=== PATIENT | male | born 1950 | race Caucasian/White ===

== ENCOUNTER 2020-02-22 09:32 | Outpatient (REF) | payer MEDICARE, SELFPAY ==
--- NOTE | 2020-02-22 09:46 | XR_ITS ---
EXAMINATION: XR LEFT HIP WITH AP PELVIS CLINICAL INFORMATION: Left hip/pelvic pain. COMPARISON: None. TECHNIQUE: AP and frog-leg lateral views of the left hip and an AP view of the pelvis. FINDINGS: There is mild nonuniform joint space narrowing at the left hip. Small marginal osteophytic present at the acetabulum and femoral head/neck. No fracture or malalignment. Bone mineralization appears normal. Pubic symphysis is unremarkable. Soft tissues are normal in appearance. 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 No acute osseous abnormalities.
== END 2020-02-22 09:33 | disposition home or self-care (01) ==
LOC: HO.XRAY 09:32
PROVIDERS: PCP Internal Medicine; Visit Provider Chiropractor
DX: M25.552 Pain in left hip (principal); M25.562 Pain in left knee
CPT/HCPCS: 73502

== ENCOUNTER 2020-03-04 08:15 | Outpatient (REF) | payer MEDICARE, SELFPAY ==
[2020-03-04 11:37] LABS: Cholesterol 154 mg/dL; HDL Cholesterol 53 mg/dL; LDL Cholesterol Calculated 30 mg/dl; Triglycerides 358 mg/dL
== END 2020-03-04 08:16 | disposition home or self-care (01) ==
LOC: HO.HMGCLDS 08:15
PROVIDERS: PCP Internal Medicine; Visit Provider Internal Medicine
DX: E78.5 Hyperlipidemia, unspecified (principal)
CPT/HCPCS: 80061

== ENCOUNTER 2020-03-25 11:11 | Outpatient (REF) | payer MEDICARE, SELFPAY ==
--- NOTE | 2020-03-25 11:19 | XR_ITS ---
EXAMINATION: XR LUMBOSACRAL SPINE CLINICAL INFORMATION: Pain COMPARISON: None TECHNIQUE: Three views of the lumbosacral spine. FINDINGS: There may be a transitional vertebral body segment or 6 lumbar-type vertebral bodies. Bone alignment is normal. No fracture or dislocation is seen. There is evidence of mild degenerative spondylosis of the mid lumbar spine and facet arthritis of the lower lumbar spine. Disc spaces are normal. There is evidence of atherosclerotic disease. XR/XR lumbar spine 2-3V IMPRESSION: Mild degenerative changes.
[2020-03-25 13:49] LABS: Cholesterol 150 mg/dL; HDL Cholesterol 64 mg/dL; LDL Cholesterol Calculated 43 mg/dl; Triglycerides 216 mg/dL
[2020-03-25 13:53] LABS: Glucose Urine UA NEG (NEG); Leukocyte Esterase Urine NEG (NEG); Nitrite Urine NEG (NEG); PH 5.5 (5.0-8.0); Specific Gravity - Urine 1.025 (1.005-1.025); Urine Blood 3+ (NEG); Urine Ketones NEG (NEG); Urine Protein NEG (NEG-TRACE)
[2020-03-25 13:58] LABS: Appearance Urine CLEAR; Color Urine YELLOW
[2020-03-25 14:18] LABS: RBC Urine 30-49 /HPF (0); Squamous Epithelial Cell Urine TRACE /LPF; WBC Urine 0-2 /HPF (0-4)
== END 2020-03-25 11:12 | disposition home or self-care (01) ==
LOC: HO.LAB 11:11
PROVIDERS: PCP Internal Medicine; Visit Provider Internal Medicine
DX: R10.9 Unspecified abdominal pain (principal); E11.9 Type 2 diabetes mellitus without complications
CPT/HCPCS: 72100; 80061; 81001; 81003

== ENCOUNTER 2020-03-28 15:49 | Outpatient (REF) | payer MEDICARE, SELFPAY ==
--- NOTE | 2020-03-28 15:53 | CT_ITS ---
EXAMINATION: CT ABDOMEN AND PELVIS WITHOUT CONTRAST CLINICAL INFORMATION: Right-sided flank pain. Renal calculus. COMPARISON: None TECHNIQUE: Multidetector volumetric imaging was performed from the superior aspect of the liver through the pubic symphysis. Sagittal and coronal reformatted images were obtained on the technologist's workstation. This CT examination was performed using dose optimization techniques as appropriate, variously including the following: *Automated exposure control *Adjustment of mA and/or kV according to patient size (this includes techniques or standardized protocols for targeted exams where dose is matched to indication/reason for exam; i.e. extremities or head) *Use of iterative reconstruction technique DLP: 541 mGy-cm FINDINGS: Visualized lung bases demonstrate emphysematous changes. There is mild dependent atelectasis also noted. The liver demonstrates normal size, contour and attenuation. A tiny gallstone is present within an otherwise unremarkable appearing gallbladder. The pancreas, spleen and adrenal glands are unremarkable. Mild right-sided hydroureteronephrosis secondary to a 3 mm calculus within the distal right ureter. There is associated mild asymmetric perinephric stranding of the right kidney. An additional calcification of the right kidney and a tiny calcification of the left kidney are suspected to be vascular in nature. There is no hydronephrosis of the left kidney. There is a 2 cm left renal cysts appreciated. The stomach is decompressed. Normal caliber loops of small and large bowel. There is moderate colonic diverticulosis without CT evidence to suggest active diverticulitis. Normal appendix. Nonaneurysmal abdominal aorta which demonstrates mild atherosclerotic disease. No retroperitoneal lymphadenopathy. The bladder is decompressed but unremarkable. Prostate gland is enlarged measuring 5.4 cm in transverse dimension. There is no inguinal lymphadenopathy. No gross free pelvic fluid. Mild to moderate degenerative changes of the spine. CT/CT abdomen pelvis wo con IMPRESSION: 1. Mild right-sided hydroureteronephrosis secondary to 3 mm calculus within the distal right ureter. 2. Cholelithiasis. 3. Moderate colonic diverticulosis without CT evidence to suggest active diverticulitis. 4. Enlarged prostate gland. 5. Emphysematous changes of the visualized lung bases.
== END 2020-03-28 15:50 | disposition home or self-care (01) ==
LOC: HO.CT 15:49
PROVIDERS: Visit Provider Internal Medicine
DX: N20.0 Calculus of kidney (principal)
CPT/HCPCS: 74176

== ENCOUNTER → 2020-04-01 08:38 | Outpatient (BNVA) | payer MEDICARE, SELFPAY | PROVIDERS: PCP Internal Medicine; Referring Provider Internal Medicine; Visit Provider Physician Assistant | DX: Z86.010 Personal history of colon polyps (principal) | CPT/HCPCS: 99212 ==

== ENCOUNTER → 2020-04-04 13:47 | Outpatient (BNVA) | payer MEDICARE, SELFPAY | PROVIDERS: PCP Internal Medicine; Referring Provider Internal Medicine; Visit Provider Urology | DX: N20.0 Calculus of kidney (principal); R35.1 Nocturia | CPT/HCPCS: Q3014 ==

== ENCOUNTER 2020-05-06 12:41 | Outpatient (REF) | payer MEDICARE, SELFPAY ==
--- NOTE | 2020-05-06 12:48 | US_ITS ---
EXAMINATION: US RETROPERITONEAL LIMITED (RENAL ONLY) CLINICAL INFORMATION: Calculus of kidney. COMPARISON: CT abdomen and pelvis without contrast dated 03/28/2020. TECHNIQUE: Real-time imaging of the kidneys. FINDINGS: RIGHT KIDNEY: 11.2 x 5.0 x 5.1 cm (SAG x AP x TRV). The kidney is normal in size, contour, and echogenicity. Renal cortical thickness is normal. No renal calculi or hydronephrosis. There is a anechoic upper pole cyst measuring 1.1 x 1.0 x 1.0 cm. LEFT KIDNEY: 12.4 x 5.9 x 5.1 cm (SAG x AP x TRV). The kidney is normal in size, contour, and echogenicity. Renal cortical thickness is normal. No renal calculi or hydronephrosis. There is anechoic midpole cyst with septation measuring 2.4 x 2.0 x 2.1 cm. US/US renal BI IMPRESSION: Simple cyst upper pole right kidney and septated cyst midpole left kidney.
== END 2020-05-06 12:42 | disposition home or self-care (01) ==
LOC: HO.HMGCX 12:41
PROVIDERS: PCP Internal Medicine; Visit Provider Urology
DX: N20.0 Calculus of kidney (principal)
CPT/HCPCS: 76775

== ENCOUNTER → 2020-05-14 15:28 | Outpatient (BNVA) | payer MEDICARE, SELFPAY | PROVIDERS: PCP Internal Medicine; Visit Provider Urology | DX: N20.0 Calculus of kidney (principal); R35.1 Nocturia | CPT/HCPCS: Q3014 ==

== ENCOUNTER 2020-06-11 06:24 | Day surgery (SDC) | payer MEDICARE, SELFPAY ==
--- NOTE | 2020-06-10 09:33 | P.CONAN_ITS ---
Documented by User: Dorothea Gallo 06/10/20 09:34 HPI - Anesthesia Eval Consult details Narrative: 70yo M for Colonoscopy daily ETOH PMFSH Past Medical History Medical History History of colonic polyps Hypertension Nephrolithiasis Family History Family History Father No problems noted. Mother Acute kidney failure Family/Other Hypertension Surgical History Surgical History Hx of colonoscopy Social History Social History Household Members: Spouse Alcohol intake: current Alcohol intake frequency: 0-2 drinks per day Alcohol type: hard liquor Smoking Status: Former smoker Smoked in Last 30 Days: No Use of substances other than those prescribed or required for medical reasons: No Have you been hit, kicked, punched, or otherwise hurt by someone within the past year? 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 [employer] Allergies Allergy/AdvReac Type Severity Reaction Status Date / Time No Known Allergies Allergy Verified 06/11/20 07:00 [No Known Allergies*] Home Medications Medication Instructions Recorded Confirmed Type allopurinol 300 mg tablet 300 mg PO DAILY 03/11/20 04/01/20 History amlodipine 10 mg tablet 10 mg PO DAILY 03/11/20 04/01/20 History aspirin 81 mg tablet,delayed 81 mg PO DAILY 03/11/20 04/01/20 History release atorvastatin 80 mg tablet 80 mg PO DAILY 03/11/20 04/01/20 History fenofibrate 54 mg tablet 54 mg PO DAILY 03/11/20 04/01/20 History furosemide 20 mg tablet 20 mg PO DAILY 03/11/20 04/01/20 History vitamin B complex 1 tab PO DAILY 03/11/20 04/01/20 History Exam Exam Date and Time: June 10, 2020 0933 Assessment and Plan Assessment Anesthesia Assessment: Chart Reviewed Documented by User: Esmer Bautista 06/11/20 07:27 [facility] Past Medical History Medical History History of colonic polyps Hypertension Nephrolithiasis Family History Family History Father No problems noted. Mother Acute kidney failure Family/Other Hypertension Surgical History Surgical History Hx of colonoscopy Social History Social History Household Members: Spouse Alcohol intake: current Alcohol intake frequency: 0-2 drinks per day Alcohol type: hard liquor Smoking Status: Former smoker Smoked in Last 30 Days: No Use of substances other than those prescribed or required for medical reasons: No Have you been hit, kicked, punched, or otherwise hurt by someone within the past year? 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 Meds Allergies Allergy/AdvReac Type Severity Reaction Status Date / Time No Known Allergies Allergy Verified 06/11/20 07:00 [No Known Allergies*] Home Medications Medication Instructions Recorded Confirmed Type allopurinol 300 mg tablet 300 mg PO DAILY 03/11/20 04/01/20 History amlodipine 10 mg tablet 10 mg PO DAILY 03/11/20 04/01/20 History aspirin 81 mg tablet,delayed 81 mg PO DAILY 03/11/20 04/01/20 History release atorvastatin 80 mg tablet 80 mg PO DAILY 03/11/20 04/01/20 History fenofibrate 54 mg tablet 54 mg PO DAILY 03/11/20 04/01/20 History furosemide 20 mg tablet 20 mg PO DAILY 03/11/20 04/01/20 History vitamin B complex 1 tab PO DAILY 03/11/20 04/01/20 History Exam Airway Mallampati Class: II TM Dist: >3cm Neck ROM: Full Heart: RRR Lungs: CTA Assessment and Plan Assessment Anesthesia Assessment: Anesthesia Plan Discussed Final Anesthetic Review NPO: Yes ASA Class: II Final Preanesthetic Review: Meds/Allgs Chart Reviewed, Consent Obtained/Reviewed and Anes Risks/Benef Reviewed Patient Risk: Low Procedure Risk: Low Anesthetic Plan Anesthetic Plan: MAC: Disposition: Standard PACU
[2020-06-11 06:35] VITALS: BMI 26.7
[2020-06-11 06:36] VITALS: BMI 26.7
[2020-06-11 06:48] VITALS: BP 174/72; PULSE 106; RESP 18; TEMP 36.9; O2SAT 97
[2020-06-11] MEDS: Lactated Ringers 1,000 ML 100 ML IVCONT (06:58)
--- NOTE | 2020-06-11 07:05 | PC.NURSE ---
PATIENT REPORTS HE COMPLETED HIS PREP AND HIS OUTPUT WAS CLEAR, BUT AT 1230 AM HE STATES SOME BROWN SEDIMENT. PT STATES HE DOESN'T FEEL LIKE HE HAS ANY OUTPUT TO RECHECK AT THIS TIME.
--- NOTE | 2020-06-11 07:24 | MHC.SHP ---
Pre-Procedural Eval Section B Chief Complaint: screening Details of Present Illness: Personal hx of colonic polyps--last exam had 3. Passed kidney stone--otherwise medically stable since preop. Relevant Family History (Specify if Yes): No Relevant Social History: Alcohol Use (daily 2) Present Medications: see Short Stay Collaborative assessment Medical History: Significant History (Hypertension) History of Previous Operations: Relevant previous surgery/procedure and date(s) (2018--colonic tubular adenomas) Allergies: Allergies Allergy/AdvReac Type Severity Reaction Status Date / Time No Known Allergies Allergy Verified 06/11/20 07:00 [No Known Allergies*] Review of Systems Sugical H&P ROS: Negative: Constitution, Cardiovascular, Respiratory and Gastrointestinal and Yes, Specify: Genitourinary (kidney stone, Campos) Exam Surgical H&P Exam: Normal: HEENT, Normal: Heart, Normal: Lungs, Normal: Extremities and Normal: Abdomen Plan Diagnosis/Plan: Unchanged I have reviewed the history and physical and performed a pertinent physical examination on my patient. No changes have occurred unless specified.YES
--- NOTE | 2020-06-11 07:28 | PC.NURSE ---
PATIENT GIVEN A FLEETS ENEMA AT THIS TIME PER DR. BURTON.
[2020-06-11] MEDS: Sodium Phosphate,Mono-Dibasic 133 ML ENEMA PR (07:33)
[2020-06-11 08:55] VITALS: BP 112/68; PULSE 83; RESP 18; TEMP 36.5; O2SAT 94
--- NOTE | 2020-06-11 08:57 | PCN2_ITS ---
Brief Operative Note Date of procedure: 06/11/20 Pre-op diagnosis: Colon cancer screening, Hx of tubular adenomas. Post-op diagnosis: other (Polyps, Diverticulosis.) Procedure: COLONOSCOPY EXCISIONAL POLYPECTOMY X 6, BX X1, EPI--6CC, ENDO HERVE - 5CC Anesthesia: MAC (MD JONNY) Surgeon: Latrice Burr Estimated blood loss (mL): 10 Pathology: other (TRANSVERSE COLON, CECAL ,BX @ 75, POLYP-40, 20 AND 3 CM) Condition: stable Disposition: PACU
[2020-06-11 09:10] VITALS: BP 125/68; PULSE 85; RESP 20; TEMP 36.5; O2SAT 94
--- NOTE | 2020-06-11 09:51 | HO.POSTANES ---
Post Anesthesia Evaluation Post Anesthesia Evaluation Vital Signs: Vital Signs Temp Pulse Resp BP Pulse Ox 06/11/20 09:10 97.7 F 85 20 125/68 94 06/11/20 08:55 97.7 F 83 18 112/68 94 06/11/20 06:48 98.5 F 106 H 18 174/72 H 97 Anesthesia: Monitored Mental Status: Awake Pain Control: Satisfactory Nausea/Vomiting: None Hydration: Adequate Anesthesia-Related Issues: No Anes. Related Issues
--- NOTE | 2020-06-14 03:10 | OP_ITS ---
SURGEON: Latrice Burr MD PREOPERATIVE DIAGNOSIS: History of tubular adenomas. ESTIMATED BLOOD LOSS: Less than 10 mL. COMPLICATIONS:NONE ANESTHESIA: Monitored. ANESTHESIOLOGIST: Esmer Bautista MD ASSISTANTS: No assistant manager retail. SPECIMENS: 1. Transverse colon. 2. Cecal polyp. 3. Biopsy at 75. 4. 40 cm. 5. 20 cm. 6. Rectal polyp. POSTOPERATIVE DIAGNOSES: Colonic polyps, diverticulosis. The patient seems to have unidentified significant CANDIDO changes with sedation. MI[employer]OSOFT ACCESS DEVELOPER: Latrice Burr MD PROCEDURES PERFORMED: Colonoscopy with excisional polypectomy x6, biopsies x1, use of epinephrine 6 mL, endo marking 4 to 5 mL. CONDITION: Postop, stable. GRAFT OR IMPLANTS: No grafts or implants. DESCRIPTION OF PROCEDURE: The patient had symptomatic CANDIDO during sedation. We suggested evaluation for same as per Anesthesia findings. Digital rectal exam revealed no specific lesion. Prostate was felt to be unremarkable, perhaps slightly enlarged. Video colonoscope was introduced without difficulty. It was navigated into the cecum. Appendiceal orifice was seen. Ileocecal valve was well seen. Prep was good to adequate. Multiple polyps were identified and removed throughout this procedure with fairly complex approach, which also involved the use of submucosal epinephrine in juan-polypectomy region and endo marking. Plan: Recommendations with multiple polyps will more than likely be that the patient will need to be re-scoped in 3 years. Consider sleep study to evaluate CANDIDO. Latrice Burr MD MEN/MODL / [phone] [facility]
== END 2020-06-11 09:50 | disposition home or self-care (01) ==
PROVIDERS: PCP Internal Medicine; Visit Provider Internal Medicine Gastroenterology
PROC: 0DJD8ZZ Inspection of Lower Intestinal Tract, Via Natural or Artificial Opening Endoscopic (ICD-10-PCS; CPT 45378; principal; 2020-06-11 07:30)
DX: Z12.11 Encounter for screening for malignant neoplasm of colon (principal); Z86.010 Personal history of colon polyps; D12.0 Benign neoplasm of cecum; D12.3 Benign neoplasm of transverse colon; D12.4 Benign neoplasm of descending colon; D12.5 Benign neoplasm of sigmoid colon; D12.8 Benign neoplasm of rectum; K57.30 Diverticulosis of large intestine without perforation or abscess without bleeding; I10 Essential (primary) hypertension; Z79.899 Other long term (current) drug therapy
CPT/HCPCS: 45380; 45381; 88305; J0171; J2250

== ENCOUNTER → 2020-07-09 09:00 | Outpatient (BNVA) | payer MEDICARE, SELFPAY | PROVIDERS: PCP Internal Medicine; Visit Provider Physician Assistant | CPT/HCPCS: Q3014 ==

== ENCOUNTER 2020-09-02 08:10 | Outpatient (REF) | payer MEDICARE, SELFPAY ==
[2020-09-02 11:25] LABS: MANUAL DIFF FLAG NO
[2020-09-02 11:34] LABS: Glucose Urine UA NEG (NEG); Leukocyte Esterase Urine NEG (NEG); Nitrite Urine NEG (NEG); PH 5.5 (5.0-8.0); Urine Blood NEG (NEG); Urine Ketones NEG (NEG); Urine Protein NEG (NEG-TRACE)
[2020-09-02 11:35] LABS: Basophils Absolute Auto 0.1 X10*3/uL (0.0-0.2); Basophils Percent Auto 1.2 % (0-2); Eosinophils Absolute Auto 0.1 X10*3/uL (0.0-0.4); Eosinophils Percent Auto 1.6 % (0-4); Hematocrit 43.2 % (42-52); Hemoglobin 14.9 g/dl (14.0-18.0); Imm Gran Abs Auto 0.03 X10*3/uL (0.00-0.03); Imm Gran Pct Auto 0.3 % (0.0-0.4); Lymphocytes Absolute Auto 2.7 X10*3/uL (1.2-4.9); Lymphocytes Percent Auto 30.6 % (20-40); Mean Corpuscular HGB Conc 34.5 g/dl (31.0-36.0); Mean Corpuscular Hemoglobin 31.3 pg (27.0-33.0); Mean Corpuscular Volume 90.8 fL (80-98); Mean Platelet Volume 10.2 fL (9.4-12.4); Monocytes Percent Auto 10.9 % (2-11); Neutrophils Absolute Auto 4.9 X10*3/uL (2.0-8.3); Neutrophils Percent Auto 55.4 % (45-73); Platelet Count 263 X10*3/uL (160-400); Red Blood Count 4.76 X10*6/uL (4.60-5.80); Red Cell Distribution Width 13.1 % (11.0-16.0); White Blood Count 8.8 X10*3/uL (4.8-10.8)
[2020-09-02 11:37] LABS: Appearance Urine CLEAR; Color Urine YELLOW
[2020-09-02 12:09] LABS: Alanine Aminotransferase 23 U/L (0-40); Albumin Level 4.1 g/dL (3.5-5.0); Alkaline Phosphatase 77 U/L (39-117); Anion Gap 18 (12-20); Aspartate Amino Transferase 28 U/L (5-37); Bilirubin Total 1.3 mg/dL (0.0-1.0); Blood Urea Nitrogen 14 mg/dL (9-16); Calcium 8.9 mg/dL (8.4-10.2); Carbon Dioxide 26 mmol/L (22-29); Chloride 101 mmol/L (96-108); Cholesterol 159 mg/dL; Estimated Glomerular Filt Rate > 60; Glucose Fasting 114 mg/dL (60-99); HDL Cholesterol 61 mg/dL; LDL Cholesterol Calculated 44 mg/dl; Potassium 3.6 mmol/L (3.3-5.1); Sodium 141 mmol/L (135-145); Total Protein 7.5 g/dL (6.5-8.0); Triglycerides 270 mg/dL; Uric Acid 5.5 mg/dL (3.4-7.0)
== END 2020-09-02 08:11 | disposition home or self-care (01) ==
LOC: HO.HMGCLDS 08:10
PROVIDERS: PCP Internal Medicine; Visit Provider Internal Medicine
DX: Z00.00 Encounter for general adult medical examination without abnormal findings (principal); E11.9 Type 2 diabetes mellitus without complications; M10.9 Gout, unspecified; R10.9 Unspecified abdominal pain
CPT/HCPCS: 36415; 80053; 80061; 81003; 84550; 85025

== ENCOUNTER → 2020-09-04 08:19 | Outpatient (BNVA) | payer MEDICARE, SELFPAY | PROVIDERS: PCP Internal Medicine; Visit Provider Internal Medicine | DX: I10 Essential (primary) hypertension (principal); E78.2 Mixed hyperlipidemia; R94.31 Abnormal electrocardiogram [ECG] [EKG] | CPT/HCPCS: 93005; 99212 ==

== ENCOUNTER 2020-11-27 11:15 | Outpatient (REF) | payer MEDICARE, SELFPAY ==
--- NOTE | ~2020-11-27 | US_ITS ---
EXAMINATION: US RETROPERITONEAL LIMITED (RENAL ONLY) CLINICAL INFORMATION: Calculus of kidney. COMPARISON: Renal ultrasound 05/06/2020. CT abdomen and pelvis 03/28/2020. TECHNIQUE: Real-time imaging of the kidneys. FINDINGS: RIGHT KIDNEY: 11.4 x 4.7 x 5.7 cm (SAG x AP x TRV). The kidney is normal in size, contour, and echogenicity. Renal cortical thickness is normal. No renal calculi or hydronephrosis. There is an anechoic cyst in the upper pole laterally measuring 0.9 x 0.8 x 1.0 cm. No additional cysts seen. LEFT KIDNEY: 12.3 x 6.0 x 5.3 cm (SAG x AP x TRV). The kidney is normal in size, contour, and echogenicity. Renal cortical thickness is normal. No renal calculi or hydronephrosis. There is an anechoic cyst in the midpole measuring 2.4 x 2.2 x 2.2 cm. US/US renal BI IMPRESSION: Bilateral renal cysts. No echogenic renal calculi or hydronephrosis.
== END 2020-11-27 11:16 | disposition home or self-care (01) ==
LOC: HO.HMGCX 11:15
PROVIDERS: PCP Internal Medicine; Visit Provider Urology
DX: N20.0 Calculus of kidney (principal)
CPT/HCPCS: 76775

== ENCOUNTER → 2020-12-26 14:58 | Outpatient (BNVA) | payer MEDICARE, SELFPAY | PROVIDERS: PCP Internal Medicine; Visit Provider Urology | CPT/HCPCS: Q3014 ==

== ENCOUNTER 2021-03-21 08:16 | Outpatient (REF) | payer MEDICARE, SELFPAY ==
[2021-03-21 11:39] LABS: MANUAL DIFF FLAG NO
[2021-03-21 11:45] LABS: Basophils Absolute Auto 0.1 X10*3/uL (0.0-0.2); Basophils Percent Auto 1.1 % (0-2); Eosinophils Absolute Auto 0.2 X10*3/uL (0.0-0.4); Hematocrit 45.5 % (42.0-52.0); Hemoglobin 15.3 g/dl (14.0-18.0); Imm Gran Abs Auto 0.02 X10*3/uL (0.00-0.03); Imm Gran Pct Auto 0.2 % (0.0-0.4); Lymphocytes Absolute Auto 2.8 X10*3/uL (1.2-4.9); Mean Corpuscular HGB Conc 33.6 g/dl (31.0-36.0); Mean Corpuscular Hemoglobin 30.8 pg (27.0-33.0); Mean Corpuscular Volume 91.7 fL (80.0-98.0); Mean Platelet Volume 10.1 fL (9.4-12.4); Monocytes Percent Auto 11.7 % (2-11); Neutrophils Absolute Auto 4.1 x10*3/uL (2.0-8.3); Platelet Count 257 X10*3/uL (160-400); Red Blood Count 4.96 X10*6/uL (4.60-5.80); Red Cell Distribution Width 12.8 % (11.0-16.0); White Blood Count 8.1 X10*3/uL (4.8-10.8)
[2021-03-21 12:07] LABS: Alanine Aminotransferase 24 U/L (0-40); Albumin Level 3.9 g/dL (3.5-5.0); Alkaline Phosphatase 75 U/L (39-117); Anion Gap 15 (12-20); Aspartate Amino Transferase 25 U/L (5-37); Bilirubin Total 0.8 mg/dL (0.0-1.0); Blood Urea Nitrogen 13 mg/dL (9-16); Carbon Dioxide 26 mmol/L (22-29); Chloride 104 mmol/L (96-108); Cholesterol 146 mg/dL; Estimated Glomerular Filt Rate > 60; Glucose Fasting 126 mg/dL (60-99); HDL Cholesterol 58 mg/dL; LDL Cholesterol Calculated 53 mg/dl; Potassium 3.7 mmol/L (3.3-5.1); Sodium 141 mmol/L (135-145); Total Protein 7.1 g/dL (6.5-8.0); Triglycerides 178 mg/dL
== END 2021-03-21 08:17 | disposition home or self-care (01) ==
LOC: HO.HMGCLDS 08:16
PROVIDERS: PCP Internal Medicine; Visit Provider Internal Medicine
DX: Z00.00 Encounter for general adult medical examination without abnormal findings (principal); E11.9 Type 2 diabetes mellitus without complications
CPT/HCPCS: 36415; 80053; 80061; 85025

== ENCOUNTER 2021-07-09 08:15 | Outpatient (REF) | payer MEDICARE, SELFPAY ==
[2021-07-09 11:36] LABS: Cholesterol 154 mg/dL; Glucose Fasting 114 mg/dL (60-99); HDL Cholesterol 66 mg/dL; LDL Cholesterol Calculated 42 mg/dl; Triglycerides 230 mg/dL
[2021-07-09 12:15] LABS: Estimated Average Glucose 117 mg/dL; Hemoglobin A1c % 5.7 %
== END 2021-07-09 08:16 | disposition home or self-care (01) ==
LOC: HO.HMGCLDS 08:15
PROVIDERS: Visit Provider Internal Medicine
DX: Z00.00 Encounter for general adult medical examination without abnormal findings (principal); E11.65 Type 2 diabetes mellitus with hyperglycemia; Z13.220 Encounter for screening for lipoid disorders
CPT/HCPCS: 36415; 80061; 82947; 83036

== ENCOUNTER → 2021-08-26 09:00 | Outpatient (REF) | payer MEDICARE, SELFPAY ==
--- NOTE | 2021-08-26 09:03 | CA_ITS ---
Transthoracic Echocardiogram Patient (Last, First, Middle): Davion Frank W Gender: Male Date of : 1950 Age: 71 Procedure Date: 08/26/2021 Procedure Type: Transthoracic Echocardiogram Location: OP Height: 180.34 cm Weight: 88.45 kg BSA: 2.09 m2 Heart Rate: bpm BP: 136 / 82 mmHg Policy Writer Typist: NOE Referring MD: Jb Barrios MD Symptoms: I10 - Essential (primary) hypertension Study Quality: Fair ECG Rhythm: Sinus Conclusions: - The left ventricular systolic function is normal. The visually estimated ejection fraction is between 60-65%. - No obvious valvular pathology seen on this study. Findings Left Ventricle Normal left ventricular cavity size. There is normal left ventricular wall thickness. The left ventricular systolic function is normal. The visually estimated ejection fraction is between 60-65%. Diastolic function is indeterminate on the basis of available data. Even contrast use, wall motion abnormalities difficult to assess. Grossly, nothing obvious. Right Ventricle Normal right ventricular cavity size. There is normal right ventricular systolic function. Aortic Valve There is a normal trileaflet aortic valve. There is mild calcification of the aortic valve. There is no aortic valve stenosis. There is no aortic valve regurgitation. Mitral Valve The mitral valve appears normal. There is trace mitral valve regurgitation. There is no mitral valve stenosis. Pulmonic Valve The pulmonic valve is likely normal. Tricuspid Valve The tricuspid valve was not well visualized. There is trace tricuspid valve regurgitation. Tricuspid regurgitation envelope is inadequate for calculation of right ventricular systolic pressure. Great Vessels The sinuses of valsalva is normal in size. Venous The inferior vena cava is normal in size and collapses greater than 50% with inspiration. Pericardium/Pleural Widened pericardial space, unable to distinguish between adipose tissue and effusion. Prior Study Comparison No significant change compared to prior study dated: 10/02/2019. Recommendations, Care & Conclusions No obvious valvular pathology seen on this study. Measurements 2D Linear Measurements IVSd: 1.33 0.6-0.9/0.6-1.0 cm LVIDd: 4.32 3.9-5.3/4.2-5.9 cm LVIDd Index: 2.07 2.4-3.2/2.2-3.1 cm/m2 LVIDs: 2.51 2.0-3.6 cm LVPWd: 1.06 0.7-1.1 cm LA Diam: 3.80 2.7-3.8/3.0-4.0 cm LAIDs Index: 1.82 1.5-2.3 cm/m2 LV Mass: 230.35 67-162/88-224 g LV Mass Index: 110.22 43-95/49-115 g/m2 LVOT Diam: 2.20 3.0+(-)1.3 cm Mitral Valve MV Pk E: 0.65 MV PK A: 1.02 MV Decel Time: 55.00 E/A: 0.60 E'Lateral: 8.05 E'Medial: 5.66 E/E' Med: 11.40 E/E' Lat: 8.00 PHT: 16.00 MVA PHT: 13.75 Decel [place]: 11.85 Aortic Valve AoV Pk Santos: 1.10 AoV Pk Grad: 5.00 LVOT LVOT Pk Santos: 0.89 LVOT Mn Santos: 0.64 LVOT VTI: 0.18 LVOT Pk Grad: 3.00 LVOT Mn Grad: 2.00 LVOT Diam: 2.20 LVOT Area: 3.80 Diastolic Function MV Pk E: 0.65 MV Pk A: 1.02 E/A: 0.60 E'Medial: 5.66 E/E' Med: 11.40 E' Laterial: 8.05 E/E' Lat: 8.00 Tricuspid Valve RA Press: 3.00 Great Vessels Aorta Ao Asc: 3.10 2.1-3.4 cm Updated in Other Vendor System with Status of Final Jb Barrios MD electronically signed on 08/26/2021 4:16:29 PM with status of Final
== END ==
LOC: HO.CARD 09:00
PROVIDERS: PCP Internal Medicine; Visit Provider Internal Medicine
DX: I10 Essential (primary) hypertension (principal)
CPT/HCPCS: 93306; Q9957

== ENCOUNTER → 2021-09-03 08:55 | Outpatient (BNVA) | payer MEDICARE, SELFPAY | PROVIDERS: PCP Internal Medicine; Referring Provider Internal Medicine; Visit Provider Internal Medicine | DX: I10 Essential (primary) hypertension (principal); E78.2 Mixed hyperlipidemia; R94.31 Abnormal electrocardiogram [ECG] [EKG]; Z79.899 Other long term (current) drug therapy | CPT/HCPCS: 93005; 99212 ==

== ENCOUNTER 2021-10-10 06:53 | Outpatient (REF) | payer MEDICARE, SELFPAY ==
[2021-10-10 12:02] LABS: Cholesterol 156 mg/dL; HDL Cholesterol 59 mg/dL; LDL Cholesterol Calculated 59 mg/dl; Triglycerides 190 mg/dL
== END 2021-10-10 06:54 | disposition home or self-care (01) ==
LOC: HO.HMGCLDS 06:53
PROVIDERS: Visit Provider Internal Medicine
DX: Z00.00 Encounter for general adult medical examination without abnormal findings (principal); I10 Essential (primary) hypertension
CPT/HCPCS: 36415; 80061

== ENCOUNTER 2021-12-16 11:13 | Outpatient (REF) | payer MEDICARE, SELFPAY ==
--- NOTE | ~2021-12-16 | US_ITS ---
EXAMINATION: US RETROPERITONEAL LIMITED (RENAL ONLY) CLINICAL INFORMATION: Calculus of kidney. COMPARISON: US retroperitoneal limited (renal only) 11/27/2020 and 05/06/2020. CT abdomen and pelvis without contrast 03/28/2020. TECHNIQUE: Real-time imaging of the kidneys. FINDINGS: RIGHT KIDNEY: 11.3 x 4.5 x 5.8 cm (SAG x AP x TRV). The kidney is normal in size, contour, and echogenicity. Renal cortical thickness is normal. 1 cm cyst in the upper pole. No renal calculi or hydronephrosis. LEFT KIDNEY: 11.8 x 5.8 x 5.7 cm (SAG x AP x TRV). The kidney is normal in size, contour, and echogenicity. Renal cortical thickness is normal. There is a 2.8 x 2.1 x 2.4 cm minimally complex cyst with septation in the midpole or Bosniak type II F cyst. No renal calculi or hydronephrosis. US/US renal BI IMPRESSION: Bilateral renal cysts. No stone seen.
== END 2021-12-16 11:14 | disposition home or self-care (01) ==
LOC: HO.HMGCX 11:13
PROVIDERS: PCP Internal Medicine; Visit Provider Urology
DX: N20.0 Calculus of kidney (principal)
CPT/HCPCS: 76775

== ENCOUNTER 2021-12-26 15:40 | Outpatient (AMB) | payer MEDICARE, SELFPAY ==
--- NOTE | 2021-12-26 10:33 | A.OFFVIS_ITS ---
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 He seen for the following urologic conditions - nephrolithiasis Ultrasound with no recurrence of stones Nephrolithiasis They are here for - further evaluation for nephrolithiasis , Urolithiasis was diagnosed - March 2020 The patient previously had kidney stones whose composition w - unknown Laboratory investigations include - June 2019 creatinine 1.0 24 Hour urine evaluation - none on file Prior treatment(s) include - observation- medical passage - a CT - stone protocol 04/05 - 4 mm dis yong right ureteric stone with mild hydroureteronephrosis and stranding - renal ultrasound 05/05 resolution of h ydronephrosis, bilateral cysts approximately 1.5 cm - 12/04 renal ultrasound no evidence of s tones, bilateral renal cyst stable - 12/05 renal ultrasound, no stones, bila teral cysts, left cyst 2.8 cm 2F Current therapeutic plan will be - to continue with imaging surveillance - encourage oral intake with lemon water therapy PFSH Medical History Atherosclerotic cardiovascular disease Prolonged QT interval Mixed hyperlipidemia Essential hypertension Right nephrolithiasis History of colonic polyps Nephrolithiasis Flank pain Hypertension Surgical History Hx of colonoscopy Family History Father No problems noted. 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 Cognitive needs: No Hearing needs: No Vision needs: Yes (reading glasses) Review of Systems Const Denies chills and Denies fever(s) Card Reports no additional complaints and Denies syncope Resp Denies cough GI Denies abdominal pain and Denies heartburn Reports as per HPI and Denies change in libido Neuro Denies syncope Psych Denies change in libido Endo Denies change in libido Physical Exam Const General: cooperative, healthy appearing, comfortable and no acute distress Orientation/consciousness: patient oriented x3 HEENT Face and sinus: Yes normal facial exam Mouth: moist mucous membranes Neck Neck: Yes normal visual inspection, Yes full ROM and Yes trachea midline Chest Chest palpation & inspection: normal inspection of the chest Resp Effort & Inspection: normal respiratory effort, able to speak in complete sentences and no respiratory distress GI Inspection: Yes normal to inspection Back/Spine/Pelvis Cervical Spine: normal cervical lordosis Thoracic/Lumbar Spine: thoracic and lumbar spine normal to inspection Skin General skin exam: no rashes or lesions noted Neuro General: patient oriented x3, gait normal, tone normal and moves all extremities Extrem General: Yes normal to inspection and Yes capillary refill normal Assessment & Plan Assessment & Plan (1) Nephrolithiasis: Code(s): N20.0 - Calculus of kidney Plan Twelve month follow-up Orders: Orders US renal BI 1 Year N20.0 - Calculus of kidney Patient Instructions: Imaging studies, laboratory and physical exam results were discussed and reviewed in detail. No major barriers to patient understanding were identified. An opportunity to ask questions regarding the treatment plan was provided. All questions were answered. The patient expressed understanding and agreement with the above treatment plan. The patient is aware they should contact our office by phone for worsening of their current condition or the appearance of new urologic symptoms. Compliance is encouraged with any medications and followup testing that is ordered. It is a privilege to participate in the urologic care of your patient. If you have any questions or concerns regarding treatment for the above conditions, or other urologic issues, please do not hesitate to contact me. The office telephone contact is [phone]. This note is constructed using voice recognition software. While every effort has been made to ensure accuracy automation clerk errors may have been included. Yours sincerely, Dr Navin Campos MD, [facility] - Urology Providers of Expert, Compassionate Care for the Genitourinary System Telehealth Telehealth Location of provider rendering services: practice address Location of patient: address on file Patient Identification confirmed using: Name, : Yes Telehealth method: voice only Patient verbally consented to treatment: Yes Patient verbally consented to billing insurance company: Yes Patient informed of any privacy concerns related to visit: Yes Coding Level of Care Code Est Pt Level 4 (03488) Diagnoses Nephrolithiasis N20.0
== END 2021-12-26 16:03 | disposition home or self-care (01) ==
LOC: HO.HUSH 15:40
PROVIDERS: PCP Internal Medicine; Visit Provider Urology
DX: N20.0 Calculus of kidney (principal)
CPT/HCPCS: 99499

== ENCOUNTER 2022-02-04 07:52 | Outpatient (REF) | payer MEDICARE, SELFPAY ==
[2022-02-04 11:40] LABS: Cholesterol 165 mg/dL; HDL Cholesterol 55 mg/dL; LDL Cholesterol Calculated 60 mg/dl; Triglycerides 254 mg/dL
== END 2022-02-04 07:53 | disposition home or self-care (01) ==
LOC: HO.HMGCLDS 07:52
PROVIDERS: PCP Internal Medicine; Visit Provider Internal Medicine
DX: Z13.220 Encounter for screening for lipoid disorders (principal)
CPT/HCPCS: 36415; 80061

== ENCOUNTER 2022-06-03 09:39 | Outpatient (REF) | payer MEDICARE, SELFPAY ==
[2022-06-03 12:25] LABS: Cholesterol 149 mg/dL; HDL Cholesterol 61 mg/dL; LDL Cholesterol Calculated 51 mg/dl; Triglycerides 186 mg/dL
== END 2022-06-03 09:40 | disposition home or self-care (01) ==
LOC: HO.HMGCLDS 09:39
PROVIDERS: PCP Internal Medicine; Visit Provider Internal Medicine
DX: E78.5 Hyperlipidemia, unspecified (principal)
CPT/HCPCS: 36415; 80061

== ENCOUNTER 2022-09-02 08:39 | Outpatient (REF) | payer MEDICARE, SELFPAY ==
[2022-09-02 11:59] LABS: Cholesterol 177 mg/dL; HDL Cholesterol 58 mg/dL; LDL Cholesterol Calculated 64 mg/dl; Triglycerides 278 mg/dL; Uric Acid 4.9 mg/dL (3.4-7.0)
== END 2022-09-02 08:40 | disposition home or self-care (01) ==
LOC: HO.HMGCLDS 08:39
PROVIDERS: PCP Internal Medicine; Visit Provider Internal Medicine
DX: E78.5 Hyperlipidemia, unspecified (principal); M10.9 Gout, unspecified
CPT/HCPCS: 36415; 80061; 84550

== ENCOUNTER → 2022-09-08 09:26 | Outpatient (BNVA) | payer MEDICARE, SELFPAY | PROVIDERS: PCP Internal Medicine; Referring Provider Internal Medicine; Visit Provider Internal Medicine | DX: R94.31 Abnormal electrocardiogram [ECG] [EKG] (principal); I10 Essential (primary) hypertension; E78.2 Mixed hyperlipidemia | CPT/HCPCS: 93005; 99212 ==

== ENCOUNTER 2022-09-18 07:38 | Outpatient (REF) | payer MEDICARE, SELFPAY ==
[2022-09-18 11:18] LABS: MANUAL DIFF FLAG NO
[2022-09-18 11:42] LABS: Basophils Absolute Auto 0.1 X10*3/uL (0.0-0.2); Basophils Percent Auto 1.2 % (0-2); Eosinophils Absolute Auto 0.2 X10*3/uL (0.0-0.4); Eosinophils Percent Auto 1.9 % (0-4); Hematocrit 46.4 % (42.0-52.0); Hemoglobin 15.7 g/dl (14.0-18.0); Imm Gran Abs Auto 0.03 X10*3/uL (0.00-0.03); Imm Gran Pct Auto 0.3 % (0.0-0.4); Lymphocytes Absolute Auto 2.9 X10*3/uL (1.2-4.9); Lymphocytes Percent Auto 32.2 % (20-40); Mean Corpuscular HGB Conc 33.8 g/dl (31.0-36.0); Mean Corpuscular Hemoglobin 31.5 pg (27.0-33.0); Mean Platelet Volume 10.1 fL (9.4-12.4); Monocytes Percent Auto 11.2 % (2-11); Neutrophils Absolute Auto 4.7 x10*3/uL (2.0-8.3); Neutrophils Percent Auto 53.2 % (45-73); Platelet Count 267 X10*3/uL (160-400); Red Blood Count 4.99 X10*6/uL (4.60-5.80); Red Cell Distribution Width 13.1 % (11.0-16.0); White Blood Count 8.9 X10*3/uL (4.8-10.8)
[2022-09-18 12:25] LABS: Alanine Aminotransferase 25 U/L (0-40); Albumin Level 3.8 g/dL (3.5-5.0); Alkaline Phosphatase 88 U/L (39-117); Anion Gap 13 (12-20); Aspartate Amino Transferase 27 U/L (5-37); Bilirubin Total 0.8 mg/dL (0.0-1.0); Blood Urea Nitrogen 14 mg/dL (9-16); Calcium 8.9 mg/dL (8.4-10.2); Carbon Dioxide 26 mmol/L (22-29); Chloride 106 mmol/L (96-108); Cholesterol 147 mg/dL; Estimated Glomerular Filt Rate > 60; Glucose Fasting 123 mg/dL (60-99); HDL Cholesterol 60 mg/dL; LDL Cholesterol Calculated 54 mg/dl; Potassium 3.6 mmol/L (3.3-5.1); Sodium 141 mmol/L (135-145); Total Protein 6.9 g/dL (6.5-8.0); Triglycerides 167 mg/dL
== END 2022-09-18 07:39 | disposition home or self-care (01) ==
LOC: HO.HMGCLDS 07:38
PROVIDERS: Absent Provider Internal Medicine; PCP Internal Medicine; Visit Provider Internal Medicine
DX: E78.5 Hyperlipidemia, unspecified (principal); D64.9 Anemia, unspecified; N28.9 Disorder of kidney and ureter, unspecified
CPT/HCPCS: 36415; 80053; 80061; 85025

== ENCOUNTER 2022-12-04 07:37 | Outpatient (AMB) | payer MEDICARE, SELFPAY ==
[2022-12-04 08:31] VITALS: BP 150/72; PULSE 92; BMI 28.3
--- NOTE | 2022-12-04 08:31 | A.OFFVIS_ITS ---
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 Required: No Accompanied by: Spouse Allergies No Known Allergies [No Known Allergies*] Allergy (Verified 12/04/22 08:32) Medication List - Last Reconciled 12/04/22 by bJ Barrios MD allopurinol 300 mg PO DAILY amlodipine 10 mg PO DAILY aspirin (Adult Low Dose Aspirin) 81 mg PO DAILY atorvastatin 80 mg PO DAILY fenofibrate 54 mg PO DAILY 90 days furosemide 20 mg PO DAILY metoprolol tartrate 50 mg PO DAILY vitamin B complex (B Complex-Vitamin B12 tablet) 1 tab PO DAILY HPI HPI Comments History of Present Illness Details Dmitry returns for follow-up regarding hypertension, coronary artery disease. Overall, he is doing quite well. Blood pressures do go up when he comes to doctor's offices but apparently has from anxiety. Home blood pressures are much lower. Generally in the 130s. Otherwise, doing good. No angina. No cardiac symptoms otherwise. Has completed coronary CT and that shows nonobstructive CAD. [facility] Medical History (Updated 12/04/22 @ 08:45 by Jb Barrios MD) Atherosclerotic cardiovascular disease Essential hypertension Flank pain History of colonic polyps Hypertension Mixed hyperlipidemia Nephrolithiasis Prolonged QT interval Right nephrolithiasis Surgical History Hx of colonoscopy Family History Father No problems noted. 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 Cognitive needs: No Hearing needs: No Vision needs: Yes (reading glasses) Review of Systems Const Denies weakness ENT Denies dizziness Card Denies chest pain, Denies chest pain with activity, Denies syncope, Denies rapid heart rate, Denies pedal edema, Denies edema, Denies leg edema, Denies lightheadedness, Denies palpitations, Denies dyspnea, Denies dyspnea on exertion and Denies orthopnea Resp Denies cough, Denies dyspnea and Denies dyspnea on exertion GI Denies hematochezia and Denies change in stool character Musc Denies abnormal gait, Denies muscle cramps, Denies muscle weakness, Denies numbness, Denies radiating pain into limb and Denies tingling Neuro Denies abnormal gait, Denies dizziness, Denies syncope, Denies numbness, Denies tingling and Denies weakness Endo Denies palpitations Physical Exam Vital Signs: Last Vital Signs Pulse 92 12/04/22 08:31 BP 150/72 H 12/04/22 08:31 BMI result Body Mass Index 28.3 Const General: comfortable and no acute distress Orientation/consciousness: patient oriented x3 HEENT Other: Unremarkable Head: Yes normal to inspection Neck Neck: Yes normal visual inspection Chest Chest palpation & inspection: normal inspection of the chest Resp Auscultation: clear to auscultation bilaterally Cardio Palpation: normal PMI Heart sounds: S1 normal heart sound present, S2 normal heart sound present, no gallops, no murmurs and no rubs GI Palpation (GI): Soft to palpation Back/Spine/Pelvis Other: unremarkable Skin General skin exam: no rashes or lesions noted Neuro General: patient oriented x3 Extrem General: Yes normal to inspection Psych Mental Status: mental status grossly normal Assessment & Plan Assessment & Plan (1) Atherosclerotic cardiovascular disease: Code(s): I25.10 - Atherosclerotic heart disease of [place] coronary artery without angina pectoris Plan: Coronary CTA shows nonobstructive CAD for the most part. Nothing clearly hemodynamically significant. Discussed with patient. He has got absolutely no angina. Hence we will continue his medical therapy for now. Continue aspirin. If any concerning symptoms, he will report to us. Discussed with as well. (2) Essential hypertension: Code(s): I10 - Essential (primary) hypertension Plan: In the ambulatory blood pressure monitoring, overall average systolic was 131 mm Hg; average diastolic 69 mm Hg. During the 1st hour after the cuff was connected, much high blood pressure readings, likely from white coat effect. Home blood pressures range from 130-135 mm systolic. 78-82 diastolic. We can go up on the beta-francine dosing to metoprolol 50 mg b.i.d. for more aggressive blood pressure management. We can target 120s systolic. If any dizziness or symptoms like that, he will report to us. Advised to stagger the dose. He can take metoprolol morning and evening and amlodipine during lunchtime. (3) Mixed hyperlipidemia: Code(s): E78.2 - Mixed hyperlipidemia Plan: Remains on statins and fenofibrate. (4) Prolonged QT interval: Code(s): R94.31 - Abnormal electrocardiogram [ECG] [EKG] Plan: Has been a chronic finding in his EKGs. To avoid QT prolonging drugs in the future. Plan Discussed with significant other who came for appointment. Medications: Changed From metoprolol tartrate 50 mg PO DAILY 90 caps 3RF To metoprolol tartrate 50 mg PO BID 180 caps 3RF 90 days Coding Level of Care Code Est Pt Level 4 (52474) Diagnoses Atherosclerotic cardiovascular disease I25.10 Essential hypertension I10 Mixed hyperlipidemia E78.2 Prolonged QT interval R94.31
== END 2022-12-04 08:44 | disposition home or self-care (01) ==
PROVIDERS: PCP Internal Medicine; Visit Provider Internal Medicine
DX: I25.10 Atherosclerotic heart disease of native coronary artery without angina pectoris (principal); I10 Essential (primary) hypertension; E78.2 Mixed hyperlipidemia; R94.31 Abnormal electrocardiogram [ECG] [EKG]
CPT/HCPCS: 99214

== ENCOUNTER → 2022-12-04 07:37 | Outpatient (BNVA) | payer MEDICARE, SELFPAY | PROVIDERS: PCP Internal Medicine; Visit Provider Internal Medicine | DX: I25.10 Atherosclerotic heart disease of native coronary artery without angina pectoris (principal); I10 Essential (primary) hypertension; E78.2 Mixed hyperlipidemia; R94.31 Abnormal electrocardiogram [ECG] [EKG]; Z79.82 Long term (current) use of aspirin; Z79.899 Other long term (current) drug therapy | CPT/HCPCS: 99212 ==

== ENCOUNTER 2022-12-17 09:40 | Outpatient (REF) | payer MEDICARE, SELFPAY ==
--- NOTE | ~2022-12-17 | US_ITS ---
EXAMINATION: US RETROPERITONEAL LIMITED (RENAL ONLY) CLINICAL INFORMATION: Calculus of kidney. COMPARISON: None available. TECHNIQUE: Real-time imaging of the kidneys. FINDINGS: RIGHT KIDNEY: 10.9 x 5.4 x 5.5 cm (SAG x AP x TRV). The kidney is normal in size, contour, and echogenicity. Renal cortical thickness is normal. No renal calculi or hydronephrosis. 0.9 x 0.9 x 0.8 cm upper pole cyst is seen. Previous measurement was 1.0 x 0.8 x 0.9 cm. LEFT KIDNEY: 12.1 x 6.0 x 4.5 cm (SAG x AP x TRV). The kidney is normal in size, contour, and echogenicity. Renal cortical thickness is normal. No renal calculi or hydronephrosis. 2.9 x 2.4 x 2.4 cm mid pole septated cyst is seen. Previous measurement was 2.8 x 2.1 x 2.4 cm. US/US renal BI IMPRESSION: Bilateral renal cysts as described.
== END 2022-12-17 09:41 | disposition home or self-care (01) ==
LOC: HO.HMGCX 09:40
PROVIDERS: PCP Internal Medicine; Visit Provider Urology
DX: N20.0 Calculus of kidney (principal)
CPT/HCPCS: 76775

== ENCOUNTER 2022-12-23 12:24 | Outpatient (REF) | payer MEDICARE, SELFPAY ==
[2022-12-23 16:47] LABS: Appearance Urine Clear; Color Urine Dark Yellow; Glucose Urine UA Negative (Negative); Leukocyte Esterase Urine Negative (Negative); Nitrite Urine Negative (Negative); PH 5.5 (5.0-9.0); Urine Blood Negative (Negative); Urine Ketones Negative (Negative); Urine Protein Negative (Neg-Trace)
[2022-12-23 16:52] LABS: Bacteria Urine None Seen (None Seen); Hyaline Casts Urine 0-2 /LPF (0-2); RBC Urine 0-2 /HPF (0-2); Squamous Epithelial Cell Urine 0-2 /HPF (0-2); WBC Urine 0-5 /HPF (0-5)
== END 2022-12-23 12:25 | disposition home or self-care (01) ==
LOC: HO.HMGCLDS 12:24
PROVIDERS: PCP Internal Medicine; Visit Provider Urology
DX: N20.0 Calculus of kidney (principal)
CPT/HCPCS: 81001; 87086

== ENCOUNTER 2022-12-30 12:42 | Outpatient (AMB) | payer MEDICARE, SELFPAY ==
--- NOTE | 2022-12-30 13:25 | MHC.OFFVIS ---
Intake Intake Visit Reasons: 1Y US(set) Intake Note: Patient is present for Follow Up Ultrasound Urology Med: None Antibiotic Allergy: None Blood Thinner: Aspirin [facility] Allergies No Known Allergies [No Known Allergies*] Allergy (Verified 12/30/22 13:25) Medication List - Last Reconciled 12/30/22 by Navin Campos MD allopurinol 300 mg PO DAILY amlodipine 10 mg PO DAILY aspirin (Adult Low Dose Aspirin) 81 mg PO DAILY atorvastatin 80 mg PO DAILY fenofibrate 54 mg PO DAILY 90 days furosemide 20 mg PO DAILY metoprolol tartrate 50 mg PO BID 90 days vitamin B complex (B Complex-Vitamin B12 tablet) 1 tab PO DAILY HPI HPI Comments History of Present Illness Details Dmitry is a pleasant male. He seen for the following urologic conditions - nephrolithiasis - lower urinary tract symptoms Yearly evaluation Stable imaging Reports lower urinary tract symptoms Trial alpha-francine Lower urinary tract symptoms Progressive Nocturia x3 Weakening of stream Worsening urgency No prior medications Trial alpha-francine Nephrolithiasis They are here for - further evaluation for nephrolithiasis, Urolithiasis was diagnosed - March 2020 The patient previously had kidney stones whose composition w - unknown Laboratory investigations include - June 2019 creatinine 1.0 24 Hour urine evaluation - none on file Prior treatment(s) include - observation- medical passage - a CT - stone protocol 04/05 - 4 mm distal right ureteric stone with mild hydroureteronephrosis and stranding - renal ultrasound 05/05 resolution of hydronephrosis, bilateral cysts approximately 1.5 cm - 12/04 renal ultrasound no evidence of stones, bilateral renal cyst stable - 12/05 renal ultrasound, no stones, bilateral cysts, left cyst 2.8 cm 2F - 12/06 renal ultrasound bilateral stable cysts Current therapeutic plan will be - to continue with imaging surveillance - encourage oral intake with lemon water therapy PFSH Medical History Atherosclerotic cardiovascular disease Essential hypertension Flank pain History of colonic polyps Hypertension Mixed hyperlipidemia Nephrolithiasis Prolonged QT interval Right nephrolithiasis Surgical History Hx of colonoscopy Family History Father No problems noted. 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 Cognitive needs: No Hearing needs: No Vision needs: Yes (reading glasses) Review of Systems Const Denies chills and Denies fever(s) Card Reports no additional complaints and Denies syncope Resp Denies cough GI Denies abdominal pain and Denies heartburn Reports as per HPI and Denies change in libido Neuro Denies syncope Psych Denies change in libido Endo Denies change in libido Physical Exam Const General: cooperative, healthy appearing, comfortable and no acute distress Orientation/consciousness: patient oriented x3 HEENT Face and sinus: Yes normal facial exam Mouth: moist mucous membranes Neck Neck: Yes normal visual inspection, Yes full ROM and Yes trachea midline Chest Chest palpation & inspection: normal inspection of the chest Resp Effort & Inspection: normal respiratory effort, able to speak in complete sentences and no respiratory distress GI Inspection: Yes normal to inspection Back/Spine/Pelvis Cervical Spine: normal cervical lordosis Thoracic/Lumbar Spine: thoracic and lumbar spine normal to inspection Skin General skin exam: no rashes or lesions noted Neuro General: patient oriented x3, gait normal, tone normal and moves all extremities Extrem General: Yes normal to inspection and Yes capillary refill normal Assessment & Plan Assessment & Plan (1) Bladder outlet obstruction: Code(s): N32.0 - Bladder-neck obstruction (2) Nocturia more than twice per night: Code(s): R35.1 - Nocturia (3) Nephrolithiasis: Code(s): N20.0 - Calculus of kidney Plan Trial alpha blockers Medications: New tamsulosin 0.4 mg PO BEDTIME 30 days 30 caps 1RF N32.0 - Bladder-neck obstruction, N40.1 - Benign prostatic hyperplasia with lower urinary tract symptoms, R35.1 - Nocturia Patient Instructions: Imaging studies, laboratory and physical exam results were discussed and reviewed in detail. No major barriers to patient understanding were identified. An opportunity to ask questions regarding the treatment plan was provided. All questions were answered. The patient expressed understanding and agreement with the above treatment plan. The patient is aware they should contact our office by phone for worsening of their current condition or the appearance of new urologic symptoms. Compliance is encouraged with any medications and followup testing that is ordered. It is a privilege to participate in the urologic care of your patient. If you have any questions or concerns regarding treatment for the above conditions, or other urologic issues, please do not hesitate to contact me. The office telephone contact is [phone]. This note is constructed using voice recognition software. While every effort has been made to ensure accuracy portable sawmill operator errors may have been included. Yours sincerely, Dr Navin Campos MD, [facility] - Urology Providers of Expert, Compassionate Care for the Genitourinary System Coding Level of Care Code Est Pt Level 4 (21189) Diagnoses Bladder outlet obstruction N32.0 Nocturia more than twice per night R35.1 Nephrolithiasis N20.0
== END 2022-12-30 13:50 | disposition home or self-care (01) ==
PROVIDERS: Visit Provider Urology
DX: N32.0 Bladder-neck obstruction (principal); R35.1 Nocturia; N20.0 Calculus of kidney
CPT/HCPCS: 99214

== ENCOUNTER → 2022-12-30 12:42 | Outpatient (BNVA) | payer MEDICARE, SELFPAY | PROVIDERS: Visit Provider Urology | DX: N40.1 Benign prostatic hyperplasia with lower urinary tract symptoms (principal); N13.8 Other obstructive and reflux uropathy; N20.0 Calculus of kidney; N32.0 Bladder-neck obstruction; R35.1 Nocturia | CPT/HCPCS: 99212 ==

== ENCOUNTER 2023-02-17 11:03 | Outpatient (AMB) | payer MEDICARE, SELFPAY ==
[2023-02-17 11:05] VITALS: BP 144/72; PULSE 94; O2SAT 98; BMI 28.2
--- NOTE | 2023-02-17 11:05 | MHC.PC.OV ---
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 Accompanied by: Spouse Allergies No Known Allergies [No Known Allergies*] Allergy (Verified 02/17/23 11:05) Medication List - Last Reconciled 02/17/23 by Sigifredo Rivera MD allopurinol 300 mg PO DAILY amlodipine 10 mg PO DAILY aspirin (Adult Low Dose Aspirin) 81 mg PO DAILY atorvastatin 80 mg PO DAILY fenofibrate 54 mg PO DAILY 90 days furosemide 20 mg PO DAILY metoprolol tartrate 50 mg PO BID 90 days tamsulosin 0.4 mg PO BEDTIME 30 days vitamin B complex (B Complex-Vitamin B12 tablet) 1 tab PO DAILY Tobacco use date assessed: 06/08/22 Fall risk assessment: No Falls in past year Last assessed Fall Risk: 02/17/23 Dental Screening Dental Screen Date: 02/17/23 Did you have a dental visit in the last 12 months?: Yes Did you have a dental problem in the last 6 months where you did not have access to dental care?: No Was dental information given to patient?: Patient has dentist HPI 5M Follow up, rescheduled from 02/01 HPI Details gout htn and hyperlipidemia; stable; compliant [facility] Medical History Atherosclerotic cardiovascular disease Prolonged QT interval Mixed hyperlipidemia Essential hypertension Right nephrolithiasis History of colonic polyps Nephrolithiasis Flank pain Hypertension Surgical History Hx of colonoscopy Family History Father No problems noted. 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 Depression Screening Interpretation: Negative Depression Screening Done: Yes Source: Developed by Drs. Fam Alba, Lisa Gonzalez, Suraj Llanos and colleagues, with an educational hannah from [employer]. Thrive Questionnaire Date Thrive assessed: 06/08/22 AUDIT C Alcohol Use Questionnaire (AUDIT-C) 1. How often do you have a drink containing alcohol?: Monthly or less 2. How many drinks containing alcohol do you have on a typical day when you are drinking?: 1 or 2 3. How often do you have six or more drinks on one occasion?: Never Total Score: 1 Score Reviewed/Action Taken: Yes RAQUEL-7 AMB Questionnaire RAQUEL-7 Date RAQUEL - 7 assessed: 06/08/22 Source: Developed by Drs. Fam Alba, Lisa Gonzalez, Suraj Llanos and colleagues, with an educational hannah from [employer]. Review of Systems Const Denies chills, Denies headache(s) and Denies weight loss ENT Denies headache(s) Card Denies chest pain, Denies syncope, Denies irregular heart rhythm and Denies dyspnea Resp Denies chest congestion, Denies cough and Denies dyspnea GI Denies abdominal pain, Denies change in stool character, Denies nausea and Denies vomiting Musc Denies deformity and Denies joint swelling Neuro Denies syncope and Denies headache(s) Physical exam (Primary Care) Vital Signs: Last Vital Signs Pulse 94 02/17/23 11:05 BP 144/72 H 02/17/23 11:05 Pulse Ox 98 02/17/23 11:05 Oxygen Delivery Method Room Air 02/17/23 11:05 BMI result Body Mass Index 28.2 Tobacco/Smoking Status: Tobacco use Status Tobacco use date assessed 06/08/22 02/17/23 11:06 Patient Tobacco Use Status Former Tobacco user 02/17/23 11:06 Tobacco use type 09/08/22 10:29 e-Cigarette/Vaping Use Never Used 02/17/23 11:06 Depression Screening Interpretation: Negative Thrive Assessment: Date of Thrive Assessment Date Thrive assessed 06/08/22 02/17/23 11:06 Const General: cooperative, comfortable, no acute distress and alert Neck Neck: Yes no lymphadenopathy Thyroid: Thyroid normal Resp Effort & Inspection: normal respiratory effort Auscultation: clear to auscultation bilaterally Percussion: percussion normal Cardio Jugular venous distension: no JVD Palpation: normal PMI Rate: regular rate Rhythm: regular rhythm Heart sounds: S1 normal heart sound present and S2 normal heart sound present GI Inspection: Yes normal to inspection Palpation (GI): No hepatosplenomegaly present Skin General skin exam: no rashes or lesions noted Extrem General: Yes no clubbing, cyanosis or edema Office Procedures Flu Questionnaire Does the patient have a severe egg allergy?: No Does the patient have severe life threatening allergies?: No Does the patient have a fever or illness today?: No Has the patient ever had Guillain-[place] Syndrome?: No Has the patient ever had any past reaction to a flu shot?: No Immunizations flu vacc [id number] 6mos up(PF) 60 mcg(15 mcgx4)/0.5 mL IM syringe Performing Provider: Sigifredo Rivera MD Performing Location: [facility] Administered by: YAIR Dhillon on 02/17/23 11:17 Dose Route Admin Location Dispensed Lot Number Expiration Date NDC Scale Clerk 0.5 mL IM Left Deltoid 0.5 mL [id number] 11/14/23 38952-440-91 Open Home Pro VIS Given Date VIS Provided VIS Publication Date 02/17/23 Single Vaccine 20 Eligibility Eligibility Date Funding Source Not [facility] Eligible 02/17/23 Private Assessment and Plan Assessment & Plan (1) Hyperlipidemia: Code(s): E78.5 - Hyperlipidemia, unspecified Plan: stable; same rx (2) Essential hypertension: Code(s): I10 - Essential (primary) hypertension Plan: stable; same rx (3) Gout: Code(s): M10.9 - Gout, unspecified Plan: stable; same rx Orders: Orders Lipid Panel Today E78.5 - Hyperlipidemia, unspecified Uric Acid Today M10.9 - Gout, unspecified Influenza [id number] Immunization Today Z23 - Encounter for immunization Coding Level of Care Code Est Pt Level 4 (05886) Diagnoses Hyperlipidemia E78.5 Essential hypertension I10 Gout M10.9
== END 2023-02-17 11:27 | disposition home or self-care (01) ==
PROVIDERS: PCP Internal Medicine; Visit Provider Internal Medicine
DX: E78.5 Hyperlipidemia, unspecified (principal); I10 Essential (primary) hypertension; M10.9 Gout, unspecified; Z23 Encounter for immunization
CPT/HCPCS: 90471; 90686; 99214

== ENCOUNTER 2023-03-05 12:59 | Outpatient (AMB) | payer MEDICARE, SELFPAY ==
--- NOTE | 2023-03-05 12:59 | MHC.OFFVIS ---
Intake Intake Visit Reasons: 2m follow up Intake Note: Patient is Present for Telephone Follow Up Urology Med: Tamsulosin Antibiotic Allergy: None Blood Thinner: Aspirin [facility] Allergies No Known Allergies [No Known Allergies*] Allergy (Verified 02/17/23 11:05) Medication List - Last Reconciled 03/05/23 by Navin Campos MD allopurinol 300 mg PO DAILY amlodipine 10 mg PO DAILY aspirin (Adult Low Dose Aspirin) 81 mg PO DAILY atorvastatin 80 mg PO DAILY fenofibrate 54 mg PO DAILY 90 days furosemide 20 mg PO DAILY metoprolol tartrate 50 mg PO BID 90 days tamsulosin 0.4 mg PO BEDTIME 90 days vitamin B complex (B Complex-Vitamin B12 tablet) 1 tab PO DAILY HPI HPI Comments History of Present Illness Details Dmitry is a pleasant male. He is a patient of Dr. Morales. He seen for the following urologic conditions - nephrolithiasis - lower urinary tract symptoms Telemedicine Evaluation 15 min Consultation [email or web address] Serge Video Alpha-francine trial successful Would like to continue with medication Prescription provided 12 month follow-up PSA Lower urinary tract symptoms Progressive Nocturia x3 Weakening of stream Worsening urgency Current medications tamsulosin Nephrolithiasis They are here for - further evaluation for nephrolithiasis, Urolithiasis was diagnosed - March 2020 The patient previously had kidney stones whose composition w - unknown Laboratory investigations include - June 2019 creatinine 1.0 24 Hour urine evaluation - none on file Prior treatment(s) include - observation- medical passage - a CT - stone protocol 04/05 - 4 mm distal right ureteric stone with mild hydroureteronephrosis and stranding - renal ultrasound 05/05 resolution of hydronephrosis, bilateral cysts approximately 1.5 cm - 12/04 renal ultrasound no evidence of stones, bilateral renal cyst stable - 12/05 renal ultrasound, no stones, bilateral cysts, left cyst 2.8 cm 2F - 12/06 renal ultrasound bilateral stable cysts Current therapeutic plan will be - to continue with imaging surveillance - encourage oral intake with lemon water therapy PFSH Medical History Atherosclerotic cardiovascular disease Prolonged QT interval Mixed hyperlipidemia Essential hypertension Right nephrolithiasis History of colonic polyps Nephrolithiasis Flank pain Hypertension Surgical History Hx of colonoscopy Family History Father No problems noted. 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 Cognitive needs: No Hearing needs: No Vision needs: Yes (reading glasses) Assessment & Plan Assessment & Plan (1) Bladder outlet obstruction: Code(s): N32.0 - Bladder-neck obstruction (2) Nocturia more than twice per night: Code(s): R35.1 - Nocturia Orders: Orders Prostate Specific Antigen 364 Days N32.0 - Bladder-neck obstruction Medications: Changed From tamsulosin 0.4 mg PO BEDTIME 30 days 30 caps 0RF N32.0 - Bladder-neck obstruction, R35.1 - Nocturia To tamsulosin 0.4 mg PO BEDTIME 90 days 90 caps 3RF N32.0 - Bladder-neck obstruction, R35.1 - Nocturia Patient Instructions: Imaging studies, laboratory and physical exam results were discussed and reviewed in detail. No major barriers to patient understanding were identified. An opportunity to ask questions regarding the treatment plan was provided. All questions were answered. The patient expressed understanding and agreement with the above treatment plan. The patient is aware they should contact our office by phone for worsening of their current condition or the appearance of new urologic symptoms. Compliance is encouraged with any medications and followup testing that is ordered. It is a privilege to participate in the urologic care of your patient. If you have any questions or concerns regarding treatment for the above conditions, or other urologic issues, please do not hesitate to contact me. The office telephone contact is [phone]. This note is constructed using voice recognition software. While every effort has been made to ensure accuracy fabric coating supervisor errors may have been included. Yours sincerely, Dr Navin Campos MD, [facility] - Urology Providers of Expert, Compassionate Care for the Genitourinary System Telehealth Telehealth Location of provider rendering services: practice address Location of patient: address on file Patient Identification confirmed using: Name, : Yes Telehealth method: video Patient verbally consented to treatment: Yes Patient verbally consented to billing insurance company: Yes Patient informed of any privacy concerns related to visit: Yes Coding Level of Care Code Tele Est Pt Level 3 (46832) Diagnoses Bladder outlet obstruction N32.0 Nocturia more than twice per night R35.1
== END 2023-03-05 13:50 | disposition home or self-care (01) ==
LOC: HO.HUSH 12:59
PROVIDERS: PCP Internal Medicine; Visit Provider Urology
DX: N32.0 Bladder-neck obstruction (principal); R35.1 Nocturia
CPT/HCPCS: 99213

== ENCOUNTER → 2023-03-05 12:59 | Outpatient (BNVA) | payer MEDICARE, SELFPAY | PROVIDERS: PCP Internal Medicine; Visit Provider Urology ==

== ENCOUNTER 2023-06-24 08:13 | Outpatient (REF) | payer MEDICARE, SELFPAY ==
[2023-06-24 12:25] LABS: Cholesterol 153 mg/dL (<200); HDL Cholesterol 67 mg/dL (>40); LDL Cholesterol Calculated 49 mg/dL (<100); Triglycerides 189 mg/dL (<150); Uric Acid 4.7 mg/dL (3.4-7.0)
[2023-06-24 12:26] LABS: Prostate Specific Antigen 2.57 ng/mL (<0.05-4.0)
== END 2023-06-24 08:14 | disposition home or self-care (01) ==
LOC: HO.HMGCLDS 08:13
PROVIDERS: Urology; PCP Internal Medicine; Visit Provider Internal Medicine
DX: Z12.5 Encounter for screening for malignant neoplasm of prostate (principal); N32.0 Bladder-neck obstruction; E78.5 Hyperlipidemia, unspecified; M10.9 Gout, unspecified
CPT/HCPCS: 36415; 80061; 84153; 84550

== ENCOUNTER 2023-06-30 09:56 | Outpatient (AMB) | payer MEDICARE, SELFPAY ==
--- NOTE | 2023-06-30 10:00 | A.OFFPC_ITS ---
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: Not Required per policy Accompanied by: Self / Same As Patient Allergies No Known Allergies [No Known Allergies*] Allergy (Verified 06/30/23 10:01) Medication List - Last Reconciled 06/30/23 by Sigifredo Rivera MD allopurinol 300 mg PO DAILY amlodipine 10 mg PO DAILY aspirin (Adult Low Dose Aspirin) 81 mg PO DAILY atorvastatin 80 mg PO DAILY fenofibrate 54 mg PO DAILY 90 days furosemide 20 mg PO DAILY metoprolol tartrate 50 mg PO BID 90 days tamsulosin 0.4 mg PO BEDTIME 90 days vitamin B complex (B Complex-Vitamin B12 tablet) 1 tab PO DAILY Tobacco use date assessed: 06/30/23 Fall risk assessment: No Falls in past year Last assessed Fall Risk: 06/30/23 Dental Screening Dental Screen Date: 06/30/23 Did you have a dental visit in the last 12 months?: Yes Did you have a dental problem in the last 6 months where you did not have access to dental care?: No Was dental information given to patient?: Patient has dentist HPI 4 month f/u HPI Details HTN hyperlip and gout; stable and compliant on rx PFSH Medical History Atherosclerotic cardiovascular disease Prolonged QT interval Mixed hyperlipidemia Essential hypertension Right nephrolithiasis History of colonic polyps Nephrolithiasis Flank pain Hypertension Surgical History Hx of colonoscopy Family History Father No problems noted. 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 1. Little interest or pleasure in doing things: not at all 2. Feeling down, depressed, or hopeless: not at all 3. Trouble falling or staying asleep, or sleeping too much: not at all 4. Feeling tired or having little energy: not at all 5. Poor appetite or overeating: not at all 6. Feeling bad about yourself - or that you are a failure or have let yourself or your family down: not at all 7. Trouble concentrating on things, such as reading the newspaper or watching television: not at all 8. Moving or speaking so slowly that other people could have noticed. Or the opposite - being so fidgety or restless that you have been moving around a lot more than usual: not at all 9. Thoughts that you would be better off or of hurting yourself in some way: not at all Total score: 0 Depression Screening Interpretation: Negative Depression Screening Done: Yes 76804 - PHQ-9 Billing: Yes Source: Developed by Drs. Fam Alba, Lisa Gonzalez, Suraj Llanos and colleagues, with an educational hananh from [facility]. Thrive Questionnaire Date Thrive assessed: 06/30/23 I am a: Patient What is your living situation today?: I have a steady place to live Within the past 12 months, did the food you bought not last and you didn't have the money to get more?: Never true Within the past 12 months, did you worry whether your food would run out before you got money to buy more?: Never true Do you have trouble paying for medicines?: No Do you have trouble getting transportation to medical appointments?: No Do you have trouble paying your heating and electricity bill?: No Do you have trouble taking care of your child, family member or friend?: No Do you have trouble with day-to-day activities such as bathing, preparing meals, shopping, managing finances, etc.?: No Are you currently unemployed and looking for a job?: No Are you interested in more education?: No Please select the resources that you would like help with: None THRIVE Score: 0 AUDIT C Alcohol Use Questionnaire (AUDIT-C) 1. How often do you have a drink containing alcohol?: Monthly or less 2. How many drinks containing alcohol do you have on a typical day when you are drinking?: 1 or 2 3. How often do you have six or more drinks on one occasion?: Never Total Score: 1 Score Reviewed/Action Taken: Yes RAQUEL-7 AMB Questionnaire RAQUEL-7 Date RAQUEL - 7 assessed: 06/30/23 Feeling nervous, anxious, or on edge: 0 = Not at all Not being able to stop or control worryin = Not at all Worrying too much about different things: 0 = Not at all Trouble relaxin = Not at all Being so restless that it is hard to sit still: 0 = Not at all Becoming easily annoyed or irritable: 0 = Not at all Feeling afraid as if something awful might happen: 0 = Not at all Total RAQUEL-7 score (0-4 normal; 5-9 mild; 10-14 moderate; 15-21 severe): 0 Source: Developed by Drs. Fam Alba, Lisa Gonzalez, Suraj Llanos and colleagues, with an educational hannah from [facility]. RAQUEL-7 Assessment Billing RAQUEL-7 Assessment Tool: RAQUEL-7 Assessment 00723 Review of Systems Const Denies chills, Denies headache(s) and Denies weight loss ENT Denies headache(s) Card Denies chest pain, Denies syncope, Denies irregular heart rhythm and Denies dys pnea Resp Denies chest congestion, Denies cough and Denies dyspnea GI Denies abdominal pain, Denies change in stool character, Denies nausea and Denie s vomiting Musc Denies deformity and Denies joint swelling Neuro Denies syncope and Denies headache(s) Physical exam (Primary Care) Vital Signs: Last Vital Signs Pulse 98 06/30/23 10:01 BP 160/80 H 06/30/23 10:01 Pulse Ox 99 06/30/23 10:01 Oxygen Delivery Method Room Air 06/30/23 10:01 BMI result Body Mass Index 28.7 Tobacco/Smoking Status: Tobacco use Status Tobacco use date assessed 06/30/23 06/30/23 10:02 Patient Tobacco Use Status Former Tobacco user 06/30/23 10:02 Tobacco use type 09/08/22 10:29 e-Cigarette/Vaping Use Never Used 06/30/23 10:02 PHQ-9: PHQ-9 Score PHQ-9: Total score 0 06/30/23 10:09 Depression Screening Interpretation: Negative Thrive Assessment: Date of Thrive Assessment Date Thrive assessed 06/30/23 06/30/23 10:02 Const General: cooperative, comfortable, no acute distress and alert Neck Neck: Yes no lymphadenopathy Thyroid: Thyroid normal Resp Effort & Inspection: normal respiratory effort Auscultation: clear to auscultation bilaterally Percussion: percussion normal Cardio Jugular venous distension: no JVD Palpation: normal PMI Rate: regular rate Rhythm: regular rhythm Heart sounds: S1 normal heart sound present and S2 normal heart sound present GI Inspection: Yes normal to inspection Palpation (GI): No hepatosplenomegaly present Skin General skin exam: no rashes or lesions noted Extrem General: Yes no clubbing, cyanosis or edema Assessment and Plan Assessment & Plan (1) Gout: Code(s): M10.9 - Gout, unspecified Plan: stable; same rx (2) Hyperlipidemia: Code(s): E78.5 - Hyperlipidemia, unspecified Plan: stable; same rx (3) Essential hypertension: Code(s): I10 - Essential (primary) hypertension Plan: stable; same rx Orders: Orders Complete Blood Count Auto Diff Today D64.9 - Anemia, unspecified Comprehensive [place]. Panel Fast Today N28.9 - Disorder of kidney and ureter, unspecified Lipid Panel Today E78.5 - Hyperlipidemia, unspecified Prostate Specific Antigen Scr Today Z00.00 - Encounter for general adult medical examination without abnormal findings Coding Level of Care Code Est Pt Level 4 (51263) Diagnoses Gout M10.9 Hyperlipidemia E78.5 Essential hypertension I10 Additional Codes RAQUEL-7 Assessment Billing - RAQUEL-7 Assessment Tool: RAQUEL-7 Assessment 08976 ([id number])
[2023-06-30 10:01] VITALS: BP 160/80; PULSE 98; O2SAT 99; BMI 28.7
== END 2023-06-30 10:24 | disposition home or self-care (01) ==
PROVIDERS: PCP Internal Medicine; Visit Provider Internal Medicine
DX: M10.9 Gout, unspecified (principal); E78.5 Hyperlipidemia, unspecified; I10 Essential (primary) hypertension
CPT/HCPCS: 99214

== ENCOUNTER 2023-09-02 10:17 | Outpatient (AMB) | payer MEDICARE, SELFPAY ==
--- NOTE | 2023-09-02 10:19 | MHC.OFFVIS ---
Vital Signs 09/02/23 10:24 09/02/23 10:52 Height 5 ft 11 in Weight 205 lb 0.478 oz BMI 28.6 BP 178/90 H 156/82 H Blood Pressure Location Lt brachial Lt brachial Position Sitting Sitting Pulse 107 H 116 H Pulse Source Auscultation Intake Visit Reasons: Rectal bleeding Intake Note: Davion presents in the office as a new patient for rectal bleeding. CC: He had bleeding for a day and then it stopped and has not came back again. He states that he does not have constipation - he goes normal and then he will have loose stools. Float Builder Required: No Allergies No Known Allergies [No Known Allergies*] Allergy (Verified 09/02/23 10:24) Medication List - Last Reconciled 09/02/23 by Bella Dan PA-C allopurinol 300 mg PO DAILY amlodipine 10 mg PO DAILY aspirin (Adult Low Dose Aspirin) 81 mg PO DAILY atorvastatin 80 mg PO DAILY fenofibrate 54 mg PO DAILY 90 days furosemide 20 mg PO DAILY metoprolol tartrate 50 mg PO BID 90 days tamsulosin 0.4 mg PO BEDTIME 90 days vitamin B complex (B Complex-Vitamin B12 tablet) 1 tab PO DAILY HPI Comments Details: -Here today with his - 73-year-old male HTN referred with rectal bleed- Reviewed vital signs he is tachycardic and hypertensive he denies any associated symptoms-admits that he is anxious His is present-he has a cardiology appointment next week he is personal history of colon polyps whose last seen in 2020 was to repeat colonoscopy in 1 year, year he is scheduled for October 2023 He was referred back today he presents today with 1 episode of rectal bleed he has always had alternating stool pattern. He has no rectal pain, he has no abdominal pain- He has no further rectal bleeding BM daily-no abd. pain- Appetite is good He does drink bourbon daily No nausea, vomiting, hematemesis, hematochezia fever chills. No headaches, dizziness, or chest pain [facility] Medical History Atherosclerotic cardiovascular disease Prolonged QT interval Mixed hyperlipidemia Essential hypertension Right nephrolithiasis History of colonic polyps Nephrolithiasis Flank pain Hypertension Surgical History Hx of colonoscopy Family History Father No problems noted. 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 Const General: cooperative and comfortable Orientation/consciousness: patient oriented x3 Limitations: no limitations Eyes Conjunctivae: conjunctival abnormal (Conjunctiva injected bilaterally no drainage) Resp Effort & Inspection: normal respiratory effort and able to speak in complete sentences Auscultation: clear to auscultation bilaterally, crackles, rales and no wheezes Cardio Rate: tachycardic (APR 116- regular) Rhythm: regular rhythm Heart sounds: S1 normal heart sound present and S2 normal heart sound present GI Palpation (GI): Soft to palpation and nontender Skin General skin exam: no rashes or lesions noted and erythema (face) Neuro General: patient oriented x3 Extrem General: Yes full ROM Psych Appearance: grossly normal Mental Status: mental status grossly normal Speech and movement: Normal speech and movement present and Clear speech present Affect: Anxious affect present Attitude: cooperative Thought process: Normal thought process present Thought content: Normal thought content present Insight: Good insight present (Psych) Judgement: Good judgement present (Psych) Results Reviewed Results Reviewed: esults Reviewed: Name: Davion Frank Age/Sex: 70/MAttending: Latrice Burr MD : 1950Submitted by: Latrice Burr MD to: MR #: [id number] Status: DEP SDCCollected: 06/11/20 Location: SSSReceived: 06/11/20 Diagnosis A. Colon, transverse, polypectomy: Tubular adenoma; no high grade dysplasia or carcinoma seen. B. Cecum, polypectomies: Tubular and tubulovillous adenomas; no high grade dysplasia or carcinoma seen. C. Colon, 75 cm polyp, biopsy: Superficial fragments of colonic mucosa with features of sessile serrated polyp. D. Colon, 40 cm, polypectomy: Tubular adenoma; no high grade dysplasia or carcinoma seen. E. Colon, 20 cm, polypectomy: Hyperplastic mucosal polyp. F. Recum, 3 cm, polypectomy: Fragments of tubular adenoma; no high-grade dysplasia or carcinoma seen. Clinical History Pre-Op Dx: Screening Post-Op Dx: Colon polyps, diverticulos Multiple polyps were identified and removed throughout this procedure with fairly complex approach, which also involved the use of submucosal epinephrine in juan-polypectomy region and endo marking. Plan: Recommendations with multiple polyps will more than likely be that the patient will need to be re-scoped in 3 years. Consider sleep study to evaluate CANDIDO. Assessment & Plan Assessment & Plan (1) Tubulovillous adenoma of colon: Comment: Three year repeat, will confirm-message sent to Dr. Burr Response from Dr. Burr below-called patient and informed (07/15/20) Reviewed path he would probably be best served by doing 18 month followup due to the # of tubular adenomas and to review site of the serrated adenoma. so recall for OV --pre procedure in 12 months with goal of getting sched by 18 months. Looking @ my dictation--He had significant CANDIDO with sedation. He could benefit from a 2 day prep--Mag citrate 1 bottle day before the prep day--small polyps and serrated polyps not that easily seen. Thank you Code(s): D12.6 - Benign neoplasm of colon, unspecified Category: Medical Plan: Polyp surveillance colonoscopy extended prep (2) Colon adenomas: Code(s): D12.6 - Benign neoplasm of colon, unspecified Category: Medical (3) Rectal bleeding: Comment: 1 occurrence Code(s): K62.5 - Hemorrhage of anus and rectum Category: Medical (4) Essential hypertension: Comment: Recheck blood pressure remains elevate-no associated symptoms Code(s): I10 - Essential (primary) hypertension Category: Medical Plan: Discussed importance of taking medication Avoidance of alcohol Plan Polyp surveillance colonoscopy-extended prep Medications: New bisacodyl (Dulcolax (bisacodyl)) Day before procedure @ 12 noon Take 4 tablets by mouth followed by large glass of water 20 mg (4 x 5 mg) PO ONCE 1 day PRN 4 tabs 0RF colonoscopy prep Z12.11 - Encounter for screening for malignant neoplasm of colon polyethylene glycol 3350 (Miralax) Take as directed by mouth the day before your procedure. 238 grams PO ONCE 1 day PRN 238 grams 0RF laxative effect polyethylene glycol 3350 (Miralax) 17 GM QD x 1 week prior to prep day 17 grams PO DAILY PRN 510 grams 1RF laxative effect Patient Instructions: Follow-up PCP and Cardiology Any cardiac symptoms ED Avoid alcohol Discussed procedure, prep- Encouraged to call with any questions or concerns
[2023-09-02 10:24] VITALS: BP 178/90; PULSE 107; BMI 28.6
[2023-09-02 10:52] VITALS: BP 156/82; PULSE 116
== END 2023-09-02 12:10 | disposition home or self-care (01) ==
PROVIDERS: PCP Internal Medicine; Visit Provider Physician Assistant
DX: D12.6 Benign neoplasm of colon, unspecified (principal); K62.5 Hemorrhage of anus and rectum; I10 Essential (primary) hypertension
CPT/HCPCS: 99213

== ENCOUNTER → 2023-09-02 10:17 | Outpatient (BNVA) | payer MEDICARE, SELFPAY | PROVIDERS: PCP Internal Medicine; Visit Provider Physician Assistant | DX: K62.5 Hemorrhage of anus and rectum (principal); D12.6 Benign neoplasm of colon, unspecified; I10 Essential (primary) hypertension | CPT/HCPCS: 99212 ==

== ENCOUNTER 2023-09-08 09:28 | Outpatient (AMB) | payer MEDICARE, SELFPAY ==
--- NOTE | 2023-09-08 09:41 | MHC.OFFVIS ---
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 Accompanied by: Spouse Allergies No Known Allergies [No Known Allergies*] Allergy (Verified 09/02/23 10:24) Medication List - Last Reconciled 09/08/23 by Jb Barrios MD allopurinol 300 mg PO DAILY amlodipine 10 mg PO DAILY aspirin (Adult Low Dose Aspirin) 81 mg PO DAILY atorvastatin 80 mg PO DAILY bisacodyl (Dulcolax (bisacodyl)) 20 mg (4 x 5 mg) PO ONCE PRN 1 day fenofibrate 54 mg PO DAILY 90 days furosemide 20 mg PO DAILY metoprolol tartrate 50 mg PO BID polyethylene glycol 3350 (Miralax) 238 grams PO ONCE PRN 1 day polyethylene glycol 3350 (Miralax) 17 grams PO DAILY PRN tamsulosin 0.4 mg PO BEDTIME 90 days vitamin B complex (B Complex-Vitamin B12 tablet) 1 tab PO DAILY HPI Comments Details: Dmitry returns for follow-up regarding hypertension, coronary artery disease. He suffers from white coat hypertension/anxiety. Blood pressures do go up when he comes here. Home blood pressures generally lower. He is brought some readings and they are 140s, some 130s and some 120s. Clinically, he is doing fine. Got absolutely no cardiac symptoms like angina. Active with no limitations. [facility] Medical History Atherosclerotic cardiovascular disease Prolonged QT interval Mixed hyperlipidemia Essential hypertension Right nephrolithiasis History of colonic polyps Nephrolithiasis Flank pain Hypertension Surgical History Hx of colonoscopy Family History Father No problems noted. 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 Cognitive needs: No Hearing needs: No Vision needs: Yes (reading glasses) Review of Systems Const Denies chills, Denies fatigue, Denies fever(s), Denies frequent falls, Denies weakness, Denies weight gain and Denies weight loss ENT Denies dizziness Card Denies chest pain, Denies leg edema, Denies lightheadedness, Denies palpitations, Denies dyspnea, Denies dyspnea on exertion, Denies orthopnea and Denies other (loss of consciousness) Resp Denies cough, Denies dyspnea and Denies dyspnea on exertion GI Denies hematochezia and Denies change in stool character Musc Denies abnormal gait, Denies muscle weakness, Denies numbness, Denies radiating pain into limb and Denies tingling Neuro Denies abnormal gait, Denies dizziness, Denies frequent falls, Denies numbness, Denies tingling and Denies weakness Endo Denies fatigue and Denies palpitations Physical Exam Vital Signs: Last Vital Signs Pulse 97 09/08/23 09:42 BP 144/80 H 09/08/23 09:42 BMI result Body Mass Index 28.6 Const General: comfortable and no acute distress Orientation/consciousness: patient oriented x3 HEENT Other: Unremarkable Head: Yes normal to inspection Neck Neck: Yes normal visual inspection Chest Chest palpation & inspection: normal inspection of the chest Resp Auscultation: clear to auscultation bilaterally Cardio Palpation: normal PMI Heart sounds: S1 normal heart sound present, S2 normal heart sound present, no gallops, no murmurs and no rubs GI Palpation (GI): Soft to palpation Back/Spine/Pelvis Other: unremarkable Skin General skin exam: no rashes or lesions noted Neuro General: patient oriented x3 Extrem General: Yes normal to inspection Psych Mental Status: mental status grossly normal Office Procedures EKG Details: EKG with sinus rhythm at 97/Min; possible right ventricular hypertrophy and nonspecific ST-T changes; normal ND. Corrected QT is 490 milliseconds. [id number], Complete Assessment & Plan Assessment & Plan (1) Atherosclerotic cardiovascular disease: Code(s): I25.10 - Atherosclerotic heart disease of ruby coronary artery without angina pectoris Category: Medical Plan: Coronary CTA 2022- Second diagonal with 50% stenosis. Mid LAD with heavy calcification, suspected <70% stenosis. Proximal to mid circumflex with likely < 60% stenosis. Second obtuse marginal with proximally < 70% stenosis. RCA with < 40% stenosis proximally; < 60% stenosis in the proximal/mid junction. Overall, diffuse CAD but he is got absolutely no angina. Continue to treat medically. Optimize risk factors. If any clear concerning symptoms, advised him to contact us immediately or seek emergency help. They understand. (2) Essential hypertension: Comment: Recheck blood pressure remains elevate-no associated symptoms Code(s): I10 - Essential (primary) hypertension Category: Medical Plan: In the ambulatory blood pressure monitoring, overall average systolic was 131 mm Hg; average diastolic 69 mm Hg. During the 1st hour after the cuff was connected, much high blood pressure readings, likely from white coat effect. Home blood pressure readings are in the 120s, 130s and some 140s. In a prior visit, beta-francine dose was increased. He also takes amlodipine. We can add losartan to his regimen. Suspect he does run borderline high blood pressures at home. Blood pressure management should be a bit more aggressive considering his coronary disease findings on CT. Check BMP 1 week after starting losartan. (3) Mixed hyperlipidemia: Code(s): E78.2 - Mixed hyperlipidemia Category: Medical Plan: Remains on statins and fenofibrate. (4) Prolonged QT interval: Code(s): R94.31 - Abnormal electrocardiogram [ECG] [EKG] Category: Medical Plan: Has been a chronic finding in his EKGs. To avoid QT prolonging drugs in the future. (5) Preoperative cardiovascular examination: Code(s): Z01.810 - Encounter for preprocedural cardiovascular examination Category: Medical Plan: Plans for colonoscopy. Intermediate cardiac risk. Plan Discussed with significant other. Orders: Orders Basic Metabolic Panel 1 Week I25.10 - Atherosclerotic heart disease of ruby coronary artery without angina pectoris Medications: New losartan 50 mg PO DAILY 90 tabs 3RF Changed From metoprolol tartrate 50 mg PO BID 90 days 180 caps 3RF To metoprolol tartrate 1 am 1/2 pm 50 mg PO BID Coding Level of Care Code Est Pt Level 4 (97092) Diagnoses Atherosclerotic cardiovascular disease I25.10 Essential hypertension I10 Mixed hyperlipidemia E78.2 Prolonged QT interval R94.31 Preoperative cardiovascular examination Z01.810 CPT Codes EKG - CPT: 45196-[id number], Complete ([id number])
[2023-09-08 09:42] VITALS: BP 144/80; PULSE 97; BMI 28.6
== END 2023-09-08 10:17 | disposition home or self-care (01) ==
PROVIDERS: Visit Provider Internal Medicine
DX: I25.10 Atherosclerotic heart disease of native coronary artery without angina pectoris (principal); I10 Essential (primary) hypertension; E78.2 Mixed hyperlipidemia; R94.31 Abnormal electrocardiogram [ECG] [EKG]; Z01.810 Encounter for preprocedural cardiovascular examination
CPT/HCPCS: 93010; 99214

== ENCOUNTER → 2023-09-08 09:28 | Outpatient (BNVA) | payer MEDICARE, SELFPAY | PROVIDERS: Visit Provider Internal Medicine | DX: Z01.810 Encounter for preprocedural cardiovascular examination (principal); I25.10 Atherosclerotic heart disease of native coronary artery without angina pectoris; I10 Essential (primary) hypertension; E78.5 Hyperlipidemia, unspecified; I51.7 Cardiomegaly; I45.81 Long QT syndrome; R94.31 Abnormal electrocardiogram [ECG] [EKG] | CPT/HCPCS: 93005; 99212 ==

== ENCOUNTER 2023-09-28 08:26 | Outpatient (REF) | payer MEDICARE, SELFPAY ==
[2023-09-28 11:18] LABS: Anion Gap 16 (12-20); Blood Urea Nitrogen 15 mg/dL (9-16); Carbon Dioxide 24 mmol/L (22-29); Chloride 104 mmol/L (96-108); Estimated Glomerular Filt Rate > 60; Glucose Random 115 mg/dL (60-115); Potassium 3.3 mmol/L (3.3-5.1); Sodium 141 mmol/L (135-145)
== END 2023-09-28 08:27 | disposition home or self-care (01) ==
LOC: HO.HMGCLDS 08:26
PROVIDERS: PCP Internal Medicine; Visit Provider Internal Medicine
DX: I25.10 Atherosclerotic heart disease of native coronary artery without angina pectoris (principal)
CPT/HCPCS: 36415; 80048

== ENCOUNTER 2024-01-06 06:33 | Outpatient (REF) | payer MEDICARE, SELFPAY ==
[2024-01-06 10:06] LABS: MANUAL DIFF FLAG NO
[2024-01-06 10:13] LABS: Basophils Absolute Auto 0.1 X10*3/uL (0.0-0.2); Basophils Percent Auto 1.4 % (0-2); Eosinophils Absolute Auto 0.2 X10*3/uL (0.0-0.4); Eosinophils Percent Auto 2.7 % (0-4); Hematocrit 43.3 % (42.0-52.0); Hemoglobin 14.7 g/dl (14.0-18.0); Imm Gran Abs Auto 0.02 X10*3/uL (0.00-0.03); Imm Gran Pct Auto 0.3 % (0.0-0.4); Lymphocytes Absolute Auto 2.9 X10*3/uL (1.2-4.9); Lymphocytes Percent Auto 37.3 % (20-40); Mean Corpuscular HGB Conc 33.9 g/dl (31.0-36.0); Mean Corpuscular Hemoglobin 31.6 pg (27.0-33.0); Mean Corpuscular Volume 93.1 fL (80.0-98.0); Mean Platelet Volume 10.1 fL (9.4-12.4); Monocytes Percent Auto 13.2 % (2-11); Neutrophils Absolute Auto 3.5 x10*3/uL (2.0-8.3); Neutrophils Percent Auto 45.1 % (45-73); Platelet Count 237 X10*3/uL (160-400); Red Blood Count 4.65 X10*6/uL (4.60-5.80); Red Cell Distribution Width 13.2 % (11.0-16.0); White Blood Count 7.7 X10*3/uL (4.8-10.8)
[2024-01-06 10:32] LABS: Alanine Aminotransferase 22 U/L (0-40); Albumin Level 3.9 g/dL (3.5-5.0); Alkaline Phosphatase 70 U/L (39-117); Anion Gap 12 (12-20); Aspartate Amino Transferase 27 U/L (5-37); Bilirubin Total 0.8 mg/dL (0.0-1.0); Blood Urea Nitrogen 18 mg/dL (9-16); Calcium 9.5 mg/dL (8.4-10.2); Carbon Dioxide 26 mmol/L (22-29); Chloride 107 mmol/L (96-108); Cholesterol 155 mg/dL (<200); Estimated Glomerular Filt Rate > 60; Glucose Fasting 119 mg/dL (60-99); HDL Cholesterol 68 mg/dL (>40); LDL Cholesterol Calculated 51 mg/dL (<100); Potassium 4.4 mmol/L (3.3-5.1); Sodium 141 mmol/L (135-145); Total Protein 7.4 g/dL (6.5-8.0); Triglycerides 180 mg/dL (<150)
[2024-01-06 10:47] LABS: Prostate Specific Antigen Scr 2.19 ng/mL (<0.05-4.0)
== END 2024-01-06 06:34 | disposition home or self-care (01) ==
LOC: HO.HMGCLDS 06:33
PROVIDERS: PCP Internal Medicine; Visit Provider Internal Medicine
DX: Z00.00 Encounter for general adult medical examination without abnormal findings (principal); D64.9 Anemia, unspecified; E78.5 Hyperlipidemia, unspecified; N28.9 Disorder of kidney and ureter, unspecified; Z12.5 Encounter for screening for malignant neoplasm of prostate
CPT/HCPCS: 36415; 80053; 80061; 84153; 85025

== ENCOUNTER 2024-01-13 10:47 | Outpatient (AMB) | payer MEDICARE, SELFPAY ==
--- NOTE | 2024-01-13 10:51 | MHC.PC.OV ---
Vital Signs 01/13/24 10:52 Height 5 ft 11 in Weight 208 lb BMI 29.0 BP 142/74 H Blood Pressure Location Lt brachial Position Sitting Pulse 104 H Pulse Source Pulse Oximeter Pulse Oximetry (%) 96 Oxygen Delivery Method Room Air Intake Visit Reasons: 4 month Follow Up ( meds ) Education Site Manager Required: No Accompanied by: Self / Same As Patient Allergies No Known Allergies [No Known Allergies*] Allergy (Verified 01/13/24 10:53) Medication List - Last Reconciled 01/14/24 by Sigifredo Rivera MD allopurinol 300 mg PO DAILY amlodipine 10 mg PO DAILY aspirin (Adult Low Dose Aspirin) 81 mg PO DAILY atorvastatin 80 mg PO DAILY fenofibrate 54 mg PO DAILY 90 days furosemide 20 mg PO DAILY losartan 50 mg PO DAILY losartan 50 mg PO DAILY metoprolol tartrate 50 mg PO BID 90 days tamsulosin 0.4 mg PO BEDTIME 90 days vitamin B complex (B Complex-Vitamin B12 tablet) 1 tab PO DAILY Tobacco use date assessed: 06/30/23 Fall risk assessment: No Falls in past year Last assessed Fall Risk: 01/13/24 Dental Screening Dental Screen Date: 06/30/23 HPI 4 month Follow Up ( meds ) HPI Details hypertension on rx; doing well and compliant [facility] Medical History Atherosclerotic cardiovascular disease Prolonged QT interval Mixed hyperlipidemia Essential hypertension Right nephrolithiasis History of colonic polyps Nephrolithiasis Flank pain Hypertension Surgical History Hx of colonoscopy Family History Father No problems noted. 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 1. Little interest or pleasure in doing things: not at all 2. Feeling down, depressed, or hopeless: not at all 3. Trouble falling or staying asleep, or sleeping too much: not at all 4. Feeling tired or having little energy: not at all 5. Poor appetite or overeating: not at all 6. Feeling bad about yourself - or that you are a failure or have let yourself or your family down: not at all 7. Trouble concentrating on things, such as reading the newspaper or watching television: not at all 8. Moving or speaking so slowly that other people could have noticed. Or the opposite - being so fidgety or restless that you have been moving around a lot more than usual: not at all 9. Thoughts that you would be better off or of hurting yourself in some way: not at all Total score: 0 Depression Screening Interpretation: Negative Depression Screening Done: Yes 16326 - PHQ-9 Billing: Yes Source: Developed by Drs. Fam Alba, Lisa Gonzalez, Suraj Llanos and colleagues, with an educational hannah from [employer]. Thrive Questionnaire Date Thrive assessed: 06/30/23 AUDIT C Alcohol Use Questionnaire (AUDIT-C) 1. How often do you have a drink containing alcohol?: Monthly or less 2. How many drinks containing alcohol do you have on a typical day when you are drinking?: 1 or 2 3. How often do you have six or more drinks on one occasion?: Never Total Score: 1 Score Reviewed/Action Taken: Yes RAQUEL-7 AMB Questionnaire RAQUEL-7 Date RAQUEL - 7 assessed: 06/30/23 Source: Developed by Drs. Fam Alba, Lisa Gonzalez, Suraj Llanos and colleagues, with an educational hannah from [employer]. Review of Systems Const Denies chills, Denies headache(s) and Denies weight loss ENT Denies headache(s) Card Denies chest pain, Denies syncope, Denies irregular heart rhythm and Denies dyspnea Resp Denies chest congestion, Denies cough and Denies dyspnea GI Denies abdominal pain, Denies change in stool character, Denies nausea and Denies vomiting Musc Denies deformity and Denies joint swelling Neuro Denies syncope and Denies headache(s) Physical exam (Primary Care) Vital Signs: Last Vital Signs Pulse 104 H 01/13/24 10:52 BP 142/74 H 01/13/24 10:52 Pulse Ox 96 01/13/24 10:52 Oxygen Delivery Method Room Air 01/13/24 10:52 BMI result Body Mass Index 29.0 Tobacco/Smoking Status: Tobacco use Status Tobacco use date assessed 06/30/23 01/13/24 10:53 Patient Tobacco Use Status Former Tobacco user 01/13/24 10:53 Tobacco use type Cigarette 01/13/24 10:58 e-Cigarette/Vaping Use Never Used 01/13/24 10:53 PHQ-9: PHQ-9 Score PHQ-9: Total score 0 01/13/24 10:58 Depression Screening Interpretation: Negative Thrive Assessment: Date of Thrive Assessment Date Thrive assessed 06/30/23 01/13/24 10:53 Const General: cooperative, comfortable, no acute distress and alert Neck Neck: Yes no lymphadenopathy Thyroid: Thyroid normal Resp Effort & Inspection: normal respiratory effort Auscultation: clear to auscultation bilaterally Percussion: percussion normal Cardio Jugular venous distension: no JVD Palpation: normal PMI Rate: regular rate Rhythm: regular rhythm Heart sounds: S1 normal heart sound present and S2 normal heart sound present GI Inspection: Yes normal to inspection Palpation (GI): No hepatosplenomegaly present Skin General skin exam: no rashes or lesions noted Extrem General: Yes no clubbing, cyanosis or edema Assessment and Plan Assessment & Plan (1) Hypertension: Code(s): I10 - Essential (primary) hypertension Plan: stable; same rx Orders: Orders Lipid Panel Today Z13.220 - Encounter for screening for lipoid disorders Coding Level of Care Code Est Pt Level 3 (38456) Diagnoses Hypertension I10
[2024-01-13 10:52] VITALS: BP 142/74; PULSE 104; O2SAT 96; BMI 29.0
== END 2024-01-13 11:39 | disposition home or self-care (01) ==
PROVIDERS: PCP Internal Medicine; Visit Provider Internal Medicine
DX: I10 Essential (primary) hypertension (principal)
CPT/HCPCS: 99213

== ENCOUNTER 2024-02-03 10:45 | Day surgery (SDC) | payer MEDICARE, SELFPAY ==
[2024-02-01 12:25] VITALS: BMI 29.0
--- NOTE | 2024-02-02 10:18 | P.CONAN_ITS ---
Documented by User: Dorothea Gallo NP 02/02/24 10:21 HPI - Anesthesia Eval Consult details Narrative: 73yo M for Colonoscopy Follows [facility] [place]: ASCD, prolonged QT, HTN. OK to proceed with colo per 08/2023 office visit [facility] Active Problems Active Problems: All Active Problems Preoperative cardiovascular examination (Acute) Rectal bleeding (Acute) Gout (Acute) Bladder outlet obstruction (Acute) Neuropathy (Acute) Hyperlipidemia (Acute) Essential hypertension (Acute) Colon adenomas (Acute) Tubulovillous adenoma of colon (Acute) Nocturia more than twice per night (Acute) Atherosclerotic cardiovascular disease (Acute) Prolonged QT interval (Acute) Mixed hyperlipidemia (Acute) Nephrolithiasis (Acute) History of colonic polyps (Acute) Hypertension (Acute) Past Medical History Medical History (Updated 02/01/24 @ 12:24 by Patsy Wagner RN) Atherosclerotic cardiovascular disease Prolonged QT interval Mixed hyperlipidemia History of colonic polyps Nephrolithiasis Flank pain Hypertension Family History Family History Father No problems noted. 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 Cognitive needs: No Hearing needs: No Vision needs: Yes (reading glasses) Meds Allergies Allergy/AdvReac Type Severity Reaction Status Date / Time No Known Allergies Allergy Verified 01/13/24 10:53 [No Known Allergies*] Home Medications ?Medication ?Instructions ?Recorded ?Confirmed ?Last Taken ?Type amlodipine 10 mg tablet 10 mg PO DAILY 03/11/20 02/01/24 Unknown History aspirin 81 mg tablet,delayed 81 mg PO DAILY 03/11/20 02/01/24 Unknown History release (Adult Low Dose Aspirin) vitamin B complex (B 1 tab PO DAILY 03/11/20 02/01/24 Unknown History Complex-Vitamin B12 tablet) losartan 50 mg tablet 50 mg PO DAILY 01/13/24 02/01/24 Unknown History Exam Height,Weight and Vital Signs: Height 5 ft 11 in Weight 94.347 kg Pertinent Lab Results Pertinent Lab Results: Laboratory Tests 01/06/24 06:36 WBC 7.7 Hgb 14.7 Hct 43.3 Plt Count 237 Sodium 141 Potassium 4.4 D Chloride 107 Carbon Dioxide 26 BUN 18 H Creatinine 0.99 Narrative Narrative: EKG 08/2023 sinus rhythm at 97/Min; possible right ventricular hypertrophy and nonspecific ST-T changes; normal MT. Corrected QT is 490 milliseconds. Coronary CTA 2022- Second diagonal with 50% stenosis. Mid LAD with heavy radha cification, suspected <70% stenosis. Proximal to mid circumflex with likely < 60% stenosis. Second obtuse marginal with proximally < 70% stenosis. RCA with < 40% stenosis proximally; < 60% stenosis in the proximal/mid junction. Overall, diffuse CAD but he is got absolutely no angina. ECHO 2021 Conclusions: - The left ventricular systolic function is normal. The visually estimated ejection fraction is between 60-65%. - No obvious valvular pathology seen on this study. Assessment and Plan Assessment Anesthesia Assessment: Chart Reviewed Documented by User: Jessica Morelos MD 02/03/24 11:22 [facility] Past Medical History Medical History (Updated 02/01/24 @ 12:24 by Patsy Wagner RN) Atherosclerotic cardiovascular disease Prolonged QT interval Mixed hyperlipidemia History of colonic polyps Nephrolithiasis Flank pain Hypertension Family History Family History Father No problems noted. Mother Acute kidney failure Family/Other Hypertension Family history of problems with anesthesia: No Surgical History Surgical History Hx of colonoscopy History of Problems with Anesthesia: No Social History Social History Household Members: Spouse Housing: House Alcohol intake: current Alcohol intake frequency: 0-2 drinks per day Alcohol type: hard liquor Patient Tobacco Use Status: Former Tobacco user Tobacco use type: Cigarette e-Cigarette/Vaping Use: Never Used Second Hand Smoke Exposure: No Advance Directives: No Advance Directives Information Provided: Yes service: No Current occupational status: employed and retired 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 Cognitive needs: No Hearing needs: No Vision needs: Yes (reading glasses) Meds Allergies Allergy/AdvReac Type Severity Reaction Status Date / Time No Known Allergies Allergy Verified 01/13/24 10:53 [No Known Allergies*] Home Medications ?Medication ?Instructions ?Recorded ?Confirmed ?Last Taken ?Type amlodipine 10 mg tablet 10 mg PO DAILY 03/11/20 02/01/24 Unknown History aspirin 81 mg tablet,delayed 81 mg PO DAILY 03/11/20 02/01/24 Unknown History release (Adult Low Dose Aspirin) vitamin B complex (B 1 tab PO DAILY 03/11/20 02/01/24 Unknown History Complex-Vitamin B12 tablet) losartan 50 mg tablet 50 mg PO DAILY 01/13/24 02/01/24 Unknown History Exam Airway Mallampati Class: II (missing one tooth bottom, caps) TM Dist: >3cm Neck ROM: Full Heart: rrr Lungs: cta Assessment and Plan Assessment Anesthesia Assessment: Anesthesia Plan Discussed Final Anesthetic Review Family History of Problems with Anesthesia: No History of Problems with Anesthesia: No NPO: Yes ASA Class: III Final Preanesthetic Review: No Changes in Pt Med Stat, Meds/Allgs Chart Reviewed and Consent Obtained/Reviewed Patient Risk: Low Procedure Risk: Low Anesthetic Plan Anesthetic Plan: MAC: Disposition: Standard PACU
[2024-02-03 11:43] VITALS: BP 181/91; PULSE 102; RESP 18; TEMP 36.6; O2SAT 98
[2024-02-03 11:47] VITALS: BMI 28.4
[2024-02-03 11:56] VITALS: BMI 28.4
[2024-02-03] MEDS: Lactated Ringers 1,000 ML 100 ML IVCONT (12:02)
[2024-02-03 12:13] VITALS: BP 159/78
--- NOTE | 2024-02-03 12:18 | P.HPSUR_ITS ---
Pre-Procedural Eval Section A - 24 Hr Update-Section A only Date of Service: 02/03/24 Section B - Complete if H&P > 30 days Chief Complaint: Benign neoplasm of colon, unspecified Relevant Family History (Specify if Yes): No Relevant Social History: None Present Medications: see Short Stay Collaborative assessment Medical History: Significant History (Atherosclerotic cardiovascular disease Prolonged QT interval Mixed hyperlipidemia History of colonic polyps Nephrolithiasis Flank pain Hypertension) History of Previous Operations: Relevant previous surgery/procedure and date(s) (Hx of colonoscopy) Allergies: Allergies Allergy/AdvReac Type Severity Reaction Status Date / Time No Known Allergies Allergy Verified 02/03/24 12:04 [No Known Allergies*] Review of Systems Sugical H&P ROS: Negative: Constitution, Cardiovascular, Respiratory, Neurolog ical, Psychiatric, Hem-Onc, Allergic/Immunologic, Gastrointestinal, Genitourinary, Musculoskeletal, Integumentary, Endocrine and Eyes/Ears/Nose/Throat Exam Surgical H&P Exam: Normal: HEENT, Normal: Heart, Normal: Lungs, Normal: Extremities, Normal: Abdomen, Normal: Skin and Normal: Neurological Plan Diagnosis/Plan: Unchanged I have reviewed the history and physical and performed a pertinent physical examination on my patient. No changes have occurred unless specified. Time Spent With Patient Time: Total time managing care of this patient today ____ minutes.
--- NOTE | 2024-02-03 12:51 | P.OPN-COLO_ITS ---
Colonoscopy Operative Note Operative Note Date of Service: 02/03/24 Narrative: Operative Information Procedure Description: Colonoscopy Indication: hx of colon polyps Anesthesia: MAC COLONOSCOPY Instrument: Olympus variable stiffness pediatric scope 190L Colonoscopy Monitoring: Vital signs and clinical assessment, continuous EKG monitoring, Pulse oximetry, Carbon Dioxide monitoring and blood pressure monitoring were done throughout the procedure. Colon withdrawal time was 14 minutes. Procedure: The patient was placed in the left lateral decubitis position and pre-procedure medications were administered. After a digital rectal examination of the ano-rectum, the video colonoscope was inserted into the rectum and advanced through the colon to the cecum/TI. The colonoscope was slowly withdrawn in a retrograde panoramic fashion and the colon mucosa was carefully examined including a retroflexed view of the rectum. Findings and interventions are described below. Procedure Difficulty: moderate Findings: Terminal Ileum-normal- superficially intubated Cecum:normal Ascending Colon: scattered diverticula, 4-6 mm sessile polyp removed with cold snare Transverse Colon - x 3 lipomas noted 10-12 mm --pos pillow sign and yellowish discoloration Descending Colon:normal Sigmoid Colon: moderate diverticulosis, x 2 sessile polyps 10 mm removed with cold snare Rectum: Retroflexion with small internal hemorrhoids seen, grade I, 10 mm sessile polyp removed with cold snare Anorectum - normal Intervention: cold snare Colon preparation: [place] Bowel Preparation Scale Right colon; 1-2 Transverse colon: 2 Left colon; 2 (0 = Unprepared colon segment with mucosa not seen due to solid stool that cannot be cleared. 1 = Portion of mucosa of the colon segment seen, but other areas of the colon segment not well seen due to staining, residual stool and/or opaque liquid. 2 = Minor amount of residual staining, small fragments of stool and/or opaque liquid, but mucosa of colon segment seen well. 3 = Entire mucosa of colon segment seen well with no residual staining, small fragments of stool or opaque liquid) Impression and Post Procedure Diagnosis: diverticulosis colon polyps internal hemorrhoids lipoma Plan: High fiber diet leaflet Avoid straining at stool, epsom salts and sitz bath, anusol supps or cream Repeat Colonoscopy in 3 years or earlier if clinically indicated Above findings were reviewed with the patient and relevant handouts were provided if indicated.
[2024-02-03 12:55] VITALS: BP 111/66; PULSE 81; RESP 16; TEMP 36.4; O2SAT 93
[2024-02-03 13:10] VITALS: BP 138/74; PULSE 78; RESP 18; TEMP 36.3; O2SAT 95
== END 2024-02-03 14:05 | disposition home or self-care (01) ==
PROVIDERS: PCP Internal Medicine; Visit Provider Internal Medicine Gastroenterology
PROC: 0DJD8ZZ Inspection of Lower Intestinal Tract, Via Natural or Artificial Opening Endoscopic (ICD-10-PCS; CPT 45378; principal; 2024-02-03 13:20)
DX: D12.5 Benign neoplasm of sigmoid colon (principal); D12.8 Benign neoplasm of rectum; K57.30 Diverticulosis of large intestine without perforation or abscess without bleeding; K64.0 First degree hemorrhoids; D17.5 Benign lipomatous neoplasm of intra-abdominal organs; K62.5 Hemorrhage of anus and rectum; Z86.010 Personal history of colon polyps; E78.5 Hyperlipidemia, unspecified; I10 Essential (primary) hypertension; Z87.891 Personal history of nicotine dependence; Z79.82 Long term (current) use of aspirin; Z79.02 Long term (current) use of antithrombotics/antiplatelets; Z79.899 Other long term (current) drug therapy
CPT/HCPCS: 45385; 88305; J2250; J2704

== ENCOUNTER → 2024-02-03 10:45 | Outpatient (BNV) | payer MEDICARE, SELFPAY | PROVIDERS: PCP Internal Medicine; Visit Provider Internal Medicine Gastroenterology | DX: Z12.11 Encounter for screening for malignant neoplasm of colon (principal); Z86.010 Personal history of colon polyps; D12.5 Benign neoplasm of sigmoid colon; K57.30 Diverticulosis of large intestine without perforation or abscess without bleeding; D12.8 Benign neoplasm of rectum; K64.0 First degree hemorrhoids | CPT/HCPCS: 45385 ==

== ENCOUNTER 2024-02-28 07:35 | Outpatient (REF) | payer MEDICARE, SELFPAY ==
[2024-02-28 10:48] LABS: PSA,Total (Free>4and<10) 2.44 ng/mL (0.00-4.00)
== END 2024-02-28 07:36 | disposition home or self-care (01) ==
LOC: HO.HMGCLDS 07:35
PROVIDERS: PCP Internal Medicine; Visit Provider Urology
DX: N32.0 Bladder-neck obstruction (principal); Z12.5 Encounter for screening for malignant neoplasm of prostate
CPT/HCPCS: 36415; 84153

== ENCOUNTER 2024-03-07 10:02 | Outpatient (AMB) | payer MEDICARE, SELFPAY ==
[2024-03-07 11:00] VITALS: BP 140/60; PULSE 103; BMI 28.8
--- NOTE | 2024-03-07 11:00 | MHC.OFFVIS ---
Vital Signs 03/07/24 11:00 Height 5 ft 11 in Weight 206 lb 5.643 oz BMI 28.8 BP 140/60 H Blood Pressure Location Lt brachial Position Sitting Pulse 103 H Pulse Source Pulse Oximeter Intake Visit Reasons: 6 mth f/up Filter Tip Catcher Required: No Accompanied by: Spouse Allergies No Known Allergies [No Known Allergies*] Allergy (Verified 02/03/24 12:04) Medication List - Last Reconciled 03/07/24 by Jb Barrios MD allopurinol 300 mg PO DAILY amlodipine 10 mg PO DAILY aspirin (Adult Low Dose Aspirin) 81 mg PO DAILY atorvastatin 80 mg PO DAILY fenofibrate 54 mg PO DAILY 90 days furosemide 20 mg PO DAILY losartan 50 mg PO DAILY metoprolol tartrate 50 mg PO BID 90 days tamsulosin 0.4 mg PO BEDTIME 90 days vitamin B complex (B Complex-Vitamin B12 tablet) 1 tab PO DAILY HPI Comments Details: Dmitry returns for follow-up regarding hypertension, coronary artery disease. He suffers from white coat hypertension/anxiety. Blood pressures do go up when he comes here and he also gets tachycardic. Home blood pressures generally lower. Clinically, no cardiac symptoms whatsoever. Absolutely no angina. He can do regular physical activity, play golf extra with no symptoms. [facility] Medical History (Updated 03/07/24 @ 11:37 by Jb Barrios MD) Atherosclerotic cardiovascular disease Prolonged QT interval Mixed hyperlipidemia History of colonic polyps Nephrolithiasis Flank pain Hypertension Surgical History Hx of colonoscopy Family History Father No problems noted. 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 Cognitive needs: No Hearing needs: No Vision needs: Yes (reading glasses) Review of Systems Const Denies chills, Denies fatigue, Denies fever(s), Denies frequent falls, Denies weakness, Denies weight gain and Denies weight loss ENT Denies dizziness Card Denies chest pain, Denies leg edema, Denies lightheadedness, Denies palpitations, Denies dyspnea and Denies dyspnea on exertion Resp Denies cough, Denies dyspnea and Denies dyspnea on exertion GI Denies hematochezia Musc Denies abnormal gait, Denies muscle weakness, Denies numbness, Denies radiating pain into limb and Denies tingling Neuro Denies abnormal gait, Denies dizziness, Denies frequent falls, Denies numbness, Denies tingling and Denies weakness Endo Denies fatigue and Denies palpitations Physical Exam Vital Signs: Last Vital Signs Pulse 103 H 03/07/24 11:00 BP 140/60 H 03/07/24 11:00 BMI result Body Mass Index 28.8 Const General: comfortable and no acute distress Orientation/consciousness: patient oriented x3 HEENT Other: Unremarkable Head: Yes normal to inspection Neck Neck: Yes normal visual inspection Chest Chest palpation & inspection: normal inspection of the chest Resp Auscultation: clear to auscultation bilaterally Cardio Palpation: normal PMI Heart sounds: S1 normal heart sound present, S2 normal heart sound present, no gallops, no murmurs and no rubs GI Palpation (GI): Soft to palpation Back/Spine/Pelvis Other: unremarkable Skin General skin exam: no rashes or lesions noted Neuro General: patient oriented x3 Extrem General: Yes normal to inspection Psych Mental Status: mental status grossly normal Assessment & Plan Assessment & Plan (1) Atherosclerotic cardiovascular disease: Comment: follows w/[facility] Code(s): I25.10 - Atherosclerotic heart disease of [place] coronary artery without angina pectoris Category: Medical Plan: Coronary CTA 2022- Second diagonal with 50% stenosis. Mid LAD with heavy calcification, suspected <70% stenosis. Proximal to mid circumflex with likely < 60% stenosis. Second obtuse marginal with proximally < 70% stenosis. RCA with < 40% stenosis proximally; < 60% stenosis in the proximal/mid junction. Overall, diffuse CAD but he is got absolutely no angina. Aggressive risk factor modification. If any anginal symptoms, advised him to contact us immediately. He understands. (2) Essential hypertension: Code(s): I10 - Essential (primary) hypertension Category: Medical Plan: Overall believe it is much better controlled now. Still has a lot of white coat effects but home blood pressures are very much in the normal range. Continue metoprolol, losartan, amlodipine. (3) Mixed hyperlipidemia: Code(s): E78.2 - Mixed hyperlipidemia Category: Medical Plan: Remains on statins and fenofibrate. (4) Prolonged QT interval: Code(s): R94.31 - Abnormal electrocardiogram [ECG] [EKG] Category: Medical Plan: Has been a chronic finding in his EKGs. To avoid QT prolonging drugs in the future. Plan Discussed with significant other. Coding Level of Care Code Est Pt Level 4 (23809) Diagnoses Atherosclerotic cardiovascular disease I25.10 Essential hypertension I10 Mixed hyperlipidemia E78.2 Prolonged QT interval R94.31
== END 2024-03-07 11:17 | disposition home or self-care (01) ==
PROVIDERS: PCP Internal Medicine; Visit Provider Internal Medicine
DX: I25.10 Atherosclerotic heart disease of native coronary artery without angina pectoris (principal); I10 Essential (primary) hypertension; E78.2 Mixed hyperlipidemia; R94.31 Abnormal electrocardiogram [ECG] [EKG]
CPT/HCPCS: 99214

== ENCOUNTER → 2024-03-07 10:02 | Outpatient (BNVA) | payer MEDICARE, SELFPAY | PROVIDERS: PCP Internal Medicine; Visit Provider Internal Medicine | DX: N20.0 Calculus of kidney (principal); N32.0 Bladder-neck obstruction; I25.10 Atherosclerotic heart disease of native coronary artery without angina pectoris; I10 Essential (primary) hypertension; E78.2 Mixed hyperlipidemia; R94.31 Abnormal electrocardiogram [ECG] [EKG] | CPT/HCPCS: 99212 ==

== ENCOUNTER 2024-03-07 12:02 | Outpatient (AMB) | payer MEDICARE, SELFPAY ==
--- NOTE | 2024-03-07 13:11 | MHC.OFFVIS ---
Intake Visit Reasons: 1Y PSA(Set) Intake Note: Patient is Present for Follow Up PSA Urology Medication: Tamsulosin Antibiotic Allergies: None Blood Thinners: Aspirin Recent PSA: 02/28/2024 2.44 Nursery Attendant Required: No Accompanied by: Self / Same As Patient Allergies No Known Allergies [No Known Allergies*] Allergy (Verified 02/03/24 12:04) Medication List - Last Reconciled 03/07/24 by Navin Campos MD allopurinol 300 mg PO DAILY amlodipine 10 mg PO DAILY aspirin (Adult Low Dose Aspirin) 81 mg PO DAILY atorvastatin 80 mg PO DAILY fenofibrate 54 mg PO DAILY 90 days furosemide 20 mg PO DAILY losartan 50 mg PO DAILY metoprolol tartrate 50 mg PO BID 90 days tamsulosin 0.4 mg PO BEDTIME 90 days vitamin B complex (B Complex-Vitamin B12 tablet) 1 tab PO DAILY HPI Comments Details: Dmitry is a pleasant male. He is a patient of Dr. Morales. He seen for the following urologic conditions - nephrolithiasis - lower urinary tract symptoms Yearly follow-up Has been on alpha-francine Stable PSA Follow-up 12 months renal ultrasound Lower urinary tract symptoms Progressive Nocturia x3 Weakening of stream Worsening urgency Current medications tamsulosin PSA 03/09 2.4 Nephrolithiasis They are here for - further evaluation for nephrolithiasis, Urolithiasis was diagnosed - March 2020 The patient previously had kidney stones whose composition w - unknown Laboratory investigations include - June 2019 creatinine 1.0 24 Hour urine evaluation - none on file Prior treatment(s) include - observation- medical passage - a CT - stone protocol 04/05 - 4 mm distal right ureteric stone with mild hydroureteronephrosis and stranding - renal ultrasound 05/05 resolution of hydronephrosis, bilateral cysts approximately 1.5 cm - 12/04 renal ultrasound no evidence of stones, bilateral renal cyst stable - 12/05 renal ultrasound, no stones, bilateral cysts, left cyst 2.8 cm 2F - 12/06 renal ultrasound bilateral stable cysts Current therapeutic plan will be - to continue with imaging surveillance - encourage oral intake with lemon water therapy PFSH Medical History Atherosclerotic cardiovascular disease Prolonged QT interval Mixed hyperlipidemia History of colonic polyps Nephrolithiasis Flank pain Hypertension Surgical History Hx of colonoscopy Family History Father No problems noted. 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 Cognitive needs: No Hearing needs: No Vision needs: Yes (reading glasses) Review of Systems Const Denies chills and Denies fever(s) Card Reports no additional complaints and Denies syncope Resp Denies cough GI Denies abdominal pain and Denies heartburn Reports as per HPI and Denies change in libido Neuro Denies syncope Psych Denies change in libido Endo Denies change in libido Physical Exam Const General: cooperative, healthy appearing, comfortable and no acute distress Orientation/consciousness: patient oriented x3 HEENT Face and sinus: Yes normal facial exam Mouth: moist mucous membranes Neck Neck: Yes normal visual inspection, Yes full ROM and Yes trachea midline Chest Chest palpation & inspection: normal inspection of the chest Resp Effort & Inspection: normal respiratory effort, able to speak in complete sentences and no respiratory distress GI Inspection: Yes normal to inspection Back/Spine/Pelvis Cervical Spine: normal cervical lordosis Thoracic/Lumbar Spine: thoracic and lumbar spine normal to inspection Skin General skin exam: no rashes or lesions noted Neuro General: patient oriented x3, gait normal, tone normal and moves all extremities Extrem General: Yes normal to inspection and Yes capillary refill normal Assessment & Plan Assessment & Plan (1) Bladder outlet obstruction: Code(s): N32.0 - Bladder-neck obstruction Category: Medical (2) Nephrolithiasis: Code(s): N20.0 - Calculus of kidney Category: Medical Plan Twelve month follow-up renal ultrasound Orders: Orders US renal BI 12 Months N32.0 - Bladder-neck obstruction Patient Instructions: Imaging studies, laboratory and physical exam results were discussed and reviewed in detail. No major barriers to patient understanding were identified. An opportunity to ask questions regarding the treatment plan was provided. All questions were answered. The patient expressed understanding and agreement with the above treatment plan. The patient is aware they should contact our office by phone for worsening of their current condition or the appearance of new urologic symptoms. Compliance is encouraged with any medications and followup testing that is ordered. It is a privilege to participate in the urologic care of your patient. If you have any questions or concerns regarding treatment for the above conditions, or other urologic issues, please do not hesitate to contact me. The office telephone contact is [phone]. This note is constructed using voice recognition software. While every effort has been made to ensure accuracy hydro plant site manager errors may have been included. Yours sincerely, Dr Navin Campos MD, [facility] - Urology Providers of Expert, Compassionate Care for the Genitourinary System Coding Level of Care Code Est Pt Level 4 (66405) Diagnoses Bladder outlet obstruction N32.0 Nephrolithiasis N20.0
== END 2024-03-07 14:06 | disposition home or self-care (01) ==
PROVIDERS: PCP Internal Medicine; Visit Provider Urology
DX: N32.0 Bladder-neck obstruction (principal); N20.0 Calculus of kidney
CPT/HCPCS: 99214

== ENCOUNTER 2024-05-09 08:33 | Outpatient (REF) | payer MEDICARE, SELFPAY ==
--- OUTSIDE RECORDS SUMMARY | 2024-05-09 08:36 | XMS_ITS ---
Author Organization [facility] Address [address] [place] [address] Care Team Providers Care Pediatric Geneticist Name Role Phone Sigifredo Rivera MD Primary Care Provider Katelynn Lebron [phone] REASON FOR VISIT rs aoot 04/20/24 Encounters Encounter Location Date Provider Diagnosis [address] [address] 04/19/2024 Katelynn Cortés Plan Of Treatment Next Appt Details Provider Name:Katelynn roa, 06/15/2024 02:15:00 PM, [address] [place] [address], [phone], Progress Notes * Davion FRANK WDOB: [birth year] (73 yo M)Acc No.[id number]:04/19/2024 Patient:?Davion FRANK :1950???Age:73 Y???Sex:Male Address:[address] [place] [address], [phone] * true * Date:? Generated for Printi reta/Facathieg/eTransmitting on:?05/09/2024 08:36 AM EST
--- OUTSIDE RECORDS SUMMARY | 2024-05-09 08:36 | XMS_ITS ---
[facility] Address [address] [place] [address] Care Team Providers Care Assayer Name Role Phone Sigifredo Rivera MD Primary Care Provider Katelynn Lebron Unavailable [phone] Solitario Garzon Unavailable [phone] Allergies No Known Allergies REASON FOR VISIT Last PCP Visit: 01/13/24 Medications Medication SIG (Take, Route, Frequency, Duration) Notes Start Date End Date Status Allopurinol 300 MG Oral for 90 Days Active amLODIPine Besylate 10 MG Oral for 60 Days Active Atorvastatin Calcium 80 MG Oral for 90 Days Active Tamsulosin HCl 0.4 MG Oral for 30 Days Active Fenofibrate 54 MG Oral for 90 Days Active Furosemide 20 MG Oral for 90 Days Active Metoprolol Tartrate 50 MG Oral for 90 Days Active Losartan Potassium 50 MG 1 tablet Orally Once a day Active Vitamin B Complex - as directed Orally 03/10/2023 Active Sushant Aspirin EC Low Dose 81 MG 1 tablet Orally Once a day for 30 day(s) 03/10/2023 Active Furosemide Active Metoprolol Succinate Active Atorvastatin Calcium Active Allopurinol Active Fenofibrate Active Tamsulosin HCl Activ e amLODIPine Besylate Active Sushant Aspirin Active Social History Tobacco Use: Social History Observation Description Date Details (start date - stop date) Former Smoker NA - NA Tobacco Use/Smoking Question Answer Notes Are you a: former smoker Additional Findings: Tobacco Non-User Current no n-smoker Tobacco use other than smoking: Question Answer Notes Are you an other tobacco user? 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 and Unspecified atherosclerosis of tolowa dee-ni' arteries of extremities, bilateral legs I70.203 Assessments Encounter Date Diagnosis (ICD Code) Assessment Notes Treatment Notes Treatment Clinical Notes Section Notes 01/13/2024 Pain in left foot (ICD-10 - M79.672) 01/13/2024 Metatarsalgia, left foot (ICD-10 - M77.42) 01/13/2024 Unspecified atherosclerosis of tolowa dee-ni' arteries of extremities, bilateral legs (ICD-10 - I70.203) 01/13/2024 Sensory neuron disease (ICD-10 - G54.9) 01/13/2024 Unspecified atherosclerosis of tolowa dee-ni' arteries of extremities, bilateral legs (ICD-10 - I70.203) Plan Of Treatment Next Appt Details Follow Up: 3 Months, Reason: Provider Name:Katelynn roa, 06/15/2024 02:15:00 PM, [address] [place] [address], [phone], Procedure Notes * Category Sub-Category Detail Notes Keratoma Treatment Parring or Cutting o f Benign Hyperkeratotic Lesion(s) 71125 ( 2-4 Lesions ) - The Benign hyperkeratotic lesions, as described above were pared, and/or cut utilizing a sterile 15 blade, tissue nippers, and/or dremel, Q8 Progress Notes * Davion FRANK WDOB: [birth year] (73 yo M)Acc No.[id number]:01/13/2024 Progress Note Patient:?Zac Davion W Provider:?Solitario Garzon DPM :1950???Age:73 Y???Sex:Male Jean e:01/13/2024 Address:[address] [place] [address] [phone] Pcp:Sigifredo Rivera MD Subjective: * Chief Complaints: * ???Last PCP Visit: 01/13/24 * HPI: ???Foot Pain:?Nature:?numbness.?Location?B/L, L>R.?Duration:?several years.?Onset/Cause:?unknown.?Course:?unchanged.?Aggrevated:?vit b complex for past 2 yrs; pt will see pcp today to discuss PT referral .?Treatments:?Dr. Castro.?Quality/Severity?moderate, severe.?Skin problems:?Misc:? 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 * ROS:?General/Constitutional:?Nausea?denies.?Vomiting?denies.?Hunger Thirst?denies.?Loss appetite?denies.?Chills?denies.?Fatigue?denies.?Fever?denies.?Night Sweats?denies.?Unexplained weight loss?denies.?Unexplained weight gain?denies.?HEENTM:?Dentures?denies.?Dizziness?denies.?Glasses/contacts?denies.?Retinopathy?de nies.?Blurred/double vision?denies.?TMJ?denies.?Discharge/drainage?denies.?Implants?denies.?Sore throat?denies.?Dental implants?denies.?Hard of hearing ?denies.?Difficulty chewing/swallowing/speaking?denies.?Nose bleeds?denies.?Sore mouth?denies.?Respiratory:?On Oxygen?denies.?Pneumonia/pleurisy?denies.?Bronchitis?denies.?Emphysema?denies.?C oughing?denies.?Cough blood?denies.?Shortness of breath?denies.?Wheezing?denies.?Cardiovascular:?Pacemaker?denies.?MVP?denies.?WPW?denies.?CHF?denies.?Heart attack?denies.?Septal defect?denies.?Rapid beat?denies.?Chest pain ?denies.?Atrial Fib.?denies.?Murmur/Palpitations?denies.?Gastrointestinal:?Hemorrhoids?denies.?Stomach/Abdominal pain?denies.?Dark blood stool?denies.?Irritable bowel ?denies.?Constipation?denies.?Diarrhea?denies.?Hematology:?Swelling?denies.?Clots?denies.?Varicose Veins?denies.?Bruising?denies.?Bleeding problem?denies.?Genitourinary:?Blood urine?denies.?Frequent/Painfu/urination/bladder control?denies.?Kidney stones?denies.?Infection (UTI)?denies.?Nephropathy?denies.?sex trans dis (STD)?denies.?Prostate?denies.?Musculoskeletal:?Hammertoes?denies.?Bunions?denies.?Back Pain?denies.?Muscle Cramps/ Resting?denies.?Muscle cramps / walking?denies.?Generalized aches and pains?denies.?Weakness?denies.?Integ.:?Arrington?denies.?Scars?denies.?Corns/calluses?denies.?Ingrown nails?denies.?Painful nails?denies.?Open Sores?denies.?Rashes?denies.?Neurologic:?Difficulty sleeping?denies.?Brain disorder?denies.?Numbness?admits.?Balance trouble?denies.?Confusion?denies.?Fainting/blackouts?denies.?Tingling?admits.?Tr emors?denies.? * Medical History:? * Surgical History:?Denies Pas t Surgical History * Hospitalization/Major Diagno stic Procedure:?Denies Past Hospitalization * Family History:?Mother: dece ased, diagnosed with Unspecified essential hypertension.?Father: , diagnosed with Unspecified essential hypertension, Unspecified heart disease.? * Social History:?Tobacco Use:?Tobacco Use/Smoking?Are you a:?former smoker ?Additional Findings: Tobacco Non-User?Current non-smoker ?Tobacco use other than smoking?Are you an other tobacco user??No ???Miscellaneous:?Caffeine: yes, frequency: , 1-2 cups per day. ?no Children. ?Exercise: yes, golf. ?Marital status: . ?Occupation: Works Part-time. * Medications:?TakingLosartan Potassium 50 MG Tablet 1 tablet Orally Once a dayVitamin B Complex - Tablet as directed Orally Sushant Aspirin EC Low Dose 81 MG Tablet Delayed Release 1 tablet Orally Once a dayFurosemide 20 MG Tablet Oral Metoprolol Tartrate 50 MG Tablet Oral Fenofibrate 54 MG Tablet Oral Allopurinol 300 MG Tablet Oral amLODIPine Besylate 10 MG Tablet Oral Atorvastatin Calcium 80 MG Tablet Oral Tamsulosin HCl 0.4 MG Capsule Oral Tamsulosin HCl amLODIPine Besylate Sushant Aspirin Fenofibrate Atorvastatin Calcium Allopurinol Metoprolol Succinate Furosemide Medication List reviewed and reconciled with the patientTaking Losartan Potassium 50 MG Tablet 1 tablet Orally Once a dayTaking Vitamin B Complex - Tablet as directed Orally Taking Sushant Aspirin EC Low Dose 81 MG Tablet Delayed Release 1 tablet Orally Once a dayTaking Furosemide 20 MG Tablet Oral Taking Metoprolol Tartrate 50 MG Tablet Oral Taking Fenofibrate 54 MG Tablet Oral Taking Allopurinol 300 MG Tablet Oral Taking amLODIPine Besylate 10 MG Tablet Oral Taking Atorvastatin Calcium 80 MG Tablet Oral Taking Tamsulosin HCl 0.4 MG Capsule Oral Taking Tamsulosin HCl Taking amLODIPine Besylate Taking Sushant Aspirin Taking Fenofibrate Taking Atorvastatin Calcium Taking Allopurinol Taking Metoprolol Succinate Taking Furosemide Medication List reviewed and reconciled with the patient * Allergies:?N.K.D.A.yes[Aller gies Verified] Objective: * Vitals:?Ht: 6fx72zh, Wt:200, BMI:27.89, Shoe size: 10W, BP:132/78 mm Hg, Ht-cm: 180.34 cm, Wt-k.72 kg. * Examination: ???General Examination: ?GENERAL APPEARANCE:?pleasant, alert, well nourished, well developed, well hydrated, with good attention to hygene/body habitus, and in no acute distress.?ORIENTED:?person,place, and time.?Neurological: ?SENSORY:?Neurological exam is normal, pain sensation normal, vibration sensation intact, pinprick sensation is normal in the lower extremities, denies, tingling, burning, anesthesia, paresthesia, hyperesthesia, B/L.?TINEL'S COMPRESSION:?Negative tarsal tunnel, tim pedis, and medial calcaneal nerves B/L.?BABINSKI REFLEX:?absent.?Neuroma Pain: ?PALPATION:?No interspace pain noted on palpation.?Vascular: ?DP PULSES:? 0/4, B/L.?PT PULSES:? 0/4, B/L.?CAPILLARY FILL TIME:?3 secs. per digit, B/L.?VARICOSITIES:?absent.?Dermatologic: ?SKIN FINDINGS:? Skin exam reveals Keratotic lesion(s) located at, SUB MTH (s), 1, 5, Left.?Orthopedic: ?MUSCLE STRENGTH:?5/5 all groups in a symmetrical fashion , B/L.?GAIT ABNORMALITY:?pronated, abducted, B/L.? 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 Plan: * Treatment: * Procedures:?Keratoma Treatment:?Parring or Cutting of Benign Hyperkeratotic Lesion(s)?60942 ( 2-4 Lesions ) - The Benign hyperkeratotic lesions, as described above were pared, and/or cut utilizing a sterile 15 blade, tissue nippers, and/or dremel, Q8.? * Procedure Codes:?93619 TRIM SKIN LESIONS, 2 TO 4, Modifiers: Q8 * Preventive Medicine:? ??Counseling:?Discussion:?-13: Office or other outpatient visit for the evaluation and management of an established patient, which required a medically appropriate history and/or examination and LOW level of DECISION MAKING for: 1 STABLE ACUTE UNCOMPLICATED PROBLEM, 2 OR MORE MINOR PROBLEMS, OR 1 STABLE CHRONIC PROBLEM, THAT POSE(S) A LOW RISK FOR MORBIDITY/MORTALITY. The visit on the day of the encounter encompassed interpreting the data and educating the patient as to the nature of their condition, treatment options available according to their individual PMH, meds, allergies, and overall health/living conditions, as well as any potential risks or complications that may occur from a failure to adhere to, and participate in, the recommended course of therapy. The discussion included a complete verbal, and/or written explanation of the examination results, any x-rays taken, the proposed diagnosis, and outline of the treatment plan. A schedule for future care needs was also explained. The patient verbalized an understanding of the instructions at this time and agreed to be an active participant in their treatment. If the patient should think of any questions or concerns after the visit, I have encouraged the patient to call the office--pt to call today to pcp for PT referral for fall prevention.? * Follow Up:?3 Months * Images: * Sign off status: Completed true * Provider:?Solitario Garzon DPM Date:? 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 Castro Quality/Severity moderate, severe Location B/L, L>R Examination Category Sub-Category Detail Notes Category Not es Neuroma Pain PALPATION: No interspace pain noted on palpation Neurological SENSORY: Neurological exa m is normal, pain sensation normal, vibration sensation intact, pinprick sensation is normal in the lower extremities, denies, tingling, burning, anesthesia, paresthesia, hyperesthesia, B/L BABINSKI REFLEX: absent TINEL'S COMPRESSION: Negative tarsal brad pablo, tim pedis, and medial calcaneal nerves B/L Dermatologic SKIN FINDINGS: Skin exam reveal s Keratotic lesion(s) located at, SUB MTH (s), 1, 5, Left Orthopedic GAIT ABNORMALITY: pronated, abducted, B/L MUSCLE STRENGTH: 5/5 all groups in a symmetrical fashion , B/L General Examination GENERAL APPEARANCE: pleasant , alert, well nourished, well developed, well hydrated, with good attention to hygene/body habitus, and in no acute distress ORIENTED: person,place, and ti me Vascular DP PULSES (B): 0/4, B/L PT PULSES (B): 0/4, B/L CAPILLARY FILL TIME: 3 secs. per digit, B/L VARICOSITIES: absent
--- OUTSIDE RECORDS SUMMARY | 2024-05-09 08:37 | XMS_ITS | Patient Health Record ---
[facility] Organization [facility] Address [address] [place] [address] Care Team Providers Care Wet Process Operator Name Role Phone Sigifredo Rivera MD Primary Care Provider Katelynn Lebron Unavailable [phone] Solitario Garzon Unavailable [phone] Allergies No Known Allergies Reason For Referral No Information Medications Medication SIG (Take, Route, Frequency, Duration) Notes Start Date End Date Status Allopurinol 300 MG Oral for 90 Days Active Furosemide Active amLODIPine Besylate 10 MG Oral for 60 Days Active Atorvastatin Calcium 80 MG Oral for 90 Days Active Tamsulosin HCl 0.4 MG Oral for 30 Days Active Metoprolol Succinate Active Furosemide 20 MG Oral for 90 Days Active Atorvastatin Calcium Active Metoprolol Tartrate 50 MG Oral for 90 Days Active Allopurinol Active Fenofibrate 54 MG Oral for 90 Days Active Tamsulosin HCl Activ e Losartan Potassium 50 MG 1 tablet Orally Once a day Active amLODIPine Besylate Active Vitamin B Complex - as directed Orally 03/10/2023 Active Sushant Aspirin Active Sushant Aspirin EC Low Dose 81 MG 1 tablet Orally Once a day for 30 day(s) 03/10/2023 Active Fenofibrate Active Social History Tobacco Use: Social History Observation Description Date Details (start date - stop date) Former Smoker NA - NA Tobacco Use/Smoking Question Answer Notes Are you a: former smoker Additional Findings: Tobacco Non-User Current no n-smoker Alcohol Screen Question Answer Notes Did you have a drink containing alcohol in the p ast year? Yes Points 0 Interpretation Negative Tobacco use other than smoking: Question Answer Notes Are you an other tobacco user? 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 Vital Signs Blood pressure diastolic 78 mm Hg 01/13/2024 Height 7ip47mx in 01/13/2024 Blood pressure systolic 132 mm Hg 01/13/2024 Weight 200 lbs 01/13/2024 BMI 27.89 kg/m2 01/13/2024 Procedures Procedure Date Ordered Date Performed Result Body Sit e 98372-XGON SKIN LESIONS, 2 TO 4 07/08/2023 N/A Encounters Encounter Location Date Provider Diagnosis [address] [address] 07/08/2023 Solitario Garzon Pain in left foot M79.672 ; Metatarsalgia, left foot M77.42 ; Unspecified atherosclerosis of [place] arteries of extremities, bilateral legs I70.203 ; Closed fracture of sesamoid bone of left foot, initial encounter S92.812A ; 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 and Unspecified atherosclerosis of [place]ro[place] arteries of extremities, bilateral legs I70.[address] [address] 10/13/2023 Solitario Garzon Pain in left foot M79.672 ; Metatarsalgia, left foot M77.42 ; Unspecified atherosclerosis of [place]roquois arteries of extremities, bilateral legs I70.203 ; 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 and Unspecified atherosclerosis of [place]ois arteries of extremities, bilateral legs I70.[address] [address] 01/13/2024 Solitaroi Garzon Pain in left foot M79.672 ; Metatarsalgia, left foot M77.42 ; Unspecified atherosclerosis of [place]roquois arteries of extremities, bilateral legs I70.203 ; 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 and Unspecified atherosclerosis of [place]roquois arteries of extremities, bilateral legs I70.[address] [address] 04/19/2024 Katelynn Cortés Assessments Encounter Date Diagnosis (ICD Code) Assessment Notes Treatment Notes Treatment Clinical Notes Section Notes 07/08/2023 Pain in left foot (ICD-10 - M79.672) 07/08/2023 Metatarsalgia, left foot (ICD-10 - M77.42) 10/13/2023 Pain in left foot (ICD-10 - M79.672) 10/13/2023 Metatarsalgia, left foot (ICD-10 - M77.42) 01/13/2024 Pain in left foot (ICD-10 - M79.672) 10/13/2023 Unspecified atherosclerosis of [place]roquois arteries of extremities, bilateral legs (ICD-10 - I70.203) 07/08/2023 Unspecified atherosclerosis of iroquois arteries of extremities, bilateral legs (ICD-10 - I70.203) 01/13/2024 Metatarsalgia, left foot (ICD-10 - M77.42) 07/08/2023 Closed fracture of sesamoid bone of left foot, initial encounter (ICD-10 - S92.812A) 01/13/2024 Unspecified atherosclerosis of iroquois arteries of extremities, bilateral legs (ICD-10 - I70.203) 07/08/2023 Sensory neuron disease (ICD-10 - G54.9) 10/13/2023 Sensory neuron disease (ICD-10 - G54.9) 01/13/2024 Sensory neuron disease (ICD-10 - G54.9) 01/13/2024 Unspecified atherosclerosis of iroquois arteries of extremities, bilateral legs (ICD-10 - I70.203) 07/08/2023 Unspecified atherosclerosis of iroquois arteries of extremities, bilateral legs (ICD-10 - I70.203) 10/13/2023 Unspecified atherosclerosis of iroquois arteries of extremities, bilateral legs (ICD-10 - I70.203) Plan Of Treatment Pending Test Test Name Order Date X ray : Foot, left 3V 04/01/2023 88750-QOZQ SKIN LESIONS, 2 TO 4 07/08/19 24 Next Appt Details Provider Name:Katelynn Paul roa, 06/15/2024 02:15:00 PM, [address] [place], [address], Insurance Providers Payer Name Payer Address Payer Phone Subscriber Number Group Number Insured Name Patient Relationship to Insured Coverage Start Date Coverage End Date Medicare National Govt Sv[employer] [address] [place] [address] [id number] Davion Frank Self - patient is the insured [employer] [facility] [address] [place] [address] [phone] [id number] Davion Frank Self - patient is the insured Medical (General) History Medical History History ICD Code Back,Hip,and Knee pain CAD (Cholesterol) High blood pressure Numbness Measles Chicken pox Gout Surgical History Surgery Date(Month/Year)
[2024-05-09 10:23] LABS: Cholesterol 128 mg/dL (<200); HDL Cholesterol 60 mg/dL (>40); LDL Cholesterol Calculated 35 mg/dL (<100); Triglycerides 165 mg/dL (<150)
== END 2024-05-09 08:34 | disposition home or self-care (01) ==
LOC: HO.HMGCLDS 08:33
PROVIDERS: PCP Internal Medicine; Visit Provider Internal Medicine
DX: Z13.220 Encounter for screening for lipoid disorders (principal)
CPT/HCPCS: 36415; 80061

== ENCOUNTER 2024-05-18 08:58 | Outpatient (AMB) | payer MEDICARE, SELFPAY ==
--- OUTSIDE RECORDS SUMMARY | 2024-05-18 09:00 | XMS_ITS ---
Author Organization [facility] Address [address] [place] [address] Care Team Providers Care Electrical Intern Name Role Phone Sigifredo Rivera MD Primary Care Provider Katelynn Lebron [phone] REASON FOR VISIT rs aoot 04/20/24 Encounters Encounter Location Date Provider Diagnosis [address] [address] 04/19/2024 Katelynn Cortés Plan Of Treatment Next Appt Details Provider Name:Katelynn roa, 06/15/2024 02:15:00 PM, [address] [place] [address], [phone], Progress Notes * Davion FRANK WDOB: [birth year] (73 yo M)Acc No.[id number]:04/19/2024 Patient:?Davion FRANK :1950???Age:73 Y???Sex:Male Address:[address] [place] [address], [address] * true * Date:? Generated for Bethanyi reta/Neo/eTransmitting on:?05/18/2024 09:00 AM EST
--- OUTSIDE RECORDS SUMMARY | 2024-05-18 09:00 | XMS_ITS ---
Author Organization [facility] Address [address] [place] [address] Care Team Providers Care Transition Mgr Name Role Phone Sigifredo Rivera MD Primary Care Provider Katelynn Lebron [phone] Encounters Encounter Location Date Provider Diagnosis [address] [address] 04/20/2024 Katelynn Cortés Plan Of Treatment Next Appt Details Provider Name:Katelynn roa, 06/15/2024 02:15:00 PM, [address] [place] [address], [phone], Progress Notes * Davion FRANK WDOB: [birth year] (73 yo M)Acc No.[id number]:04/20/2024 Progress Note Patient:?Davion FRANK Provider:?Katelynn Cortés DPM :1950???Age:73 Y???Sex:Male Jean e:04/20/2024 Address:[address] [place] [phone] Pcp:Sigifredo Rivera MD Subjective: * Chief Complaints: * ??? * Medical History:? Objective: * Vitals:? Assessment: Plan: * Treatment: * Images: * The named appointment provid er may or may not be the originator of this progress note, and it is not deemed complete until electronically signed by the appointment provider. Sign off status: Pending * Provider:?Katelynn Cortés DPM Date:?1 06/21/2023 Generated for Joaquín mcduffie/Neo/Darius on:?05/18/2024 09:00 AM EST
--- OUTSIDE RECORDS SUMMARY | 2024-05-18 09:00 | XMS_ITS ---
[facility] Address [address] [place] [address] Care Team Providers Care Deputy Sheriff Generalist Name Role Phone Sigifredo Rivera MD Primary Care Provider Katelynn Lebron Unavailable [phone] Solitario Garzon Unavailable [phone] Allergies No Known Allergies REASON FOR VISIT [...] other tobacco user? No Vital Signs Height 1uq09ta in 01/13/2024 Weight 200 lbs 01/13/2024 BMI 27.89 kg/m2 01/13/2024 Blood pressure systolic 132 mm Hg 01/13/20 24 Blood pressure diastolic 78 mm Hg 024 Encounters Encounter Location Date Provider Diagnosis [facility] [address] [address] 01/13/2024 Solitario Garzon Pain in left foot M79.672 ; Metatarsalgia, left foot M77.42 ; Unspecified atherosclerosis of [place] arteries of extremities, bilateral legs I70.203 ; 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 and Unspecified atherosclerosis of [place] arteries of extremities, bilateral legs I70.203 Assessments Encounter Date Diagnosis (ICD Code) Assessment Notes Treatment Notes Treatment Clinical Notes Section Notes 01/13/2024 Pain in left foot (ICD-10 - M79.672) 01/13/2024 Metatarsalgia, left foot (ICD-10 - M77.42) 01/13/2024 Unspecified atherosclerosis of [place] arteries of extremities, bilateral legs (ICD-10 - I70.203) 01/13/2024 Sensory neuron disease (ICD-10 - G54.9) 01/13/2024 Unspecified atherosclerosis of [place] arteries of extremities, bilateral legs (ICD-10 - I70.203) Plan Of Treatment Next Appt Details Follow Up: 3 Months, Reason: Provider Name:Katelynn roa, 06/15/2024 02:15:00 PM, [address] [place] [address], [phone], Procedure Notes * Category Sub-Category Detail Notes Keratoma Treatment Parring or Cutting o f Benign Hyperkeratotic Lesion(s) 84739 ( 2-4 Lesions ) - The Benign hyperkeratotic lesions, as described above were pared, and/or cut utilizing a sterile 15 blade, tissue nippers, and/or dremel, Q8 Progress Notes * Davion FRANK WDOB: [birth year] (73 yo M)Acc No.[id number]:01/13/2024 Progress Note Patient:?Zac Davion W Provider:?Solitario Garzon DPM :1950???Age:73 Y???Sex:Male Jean e:01/13/2024 Address:[address] [place] [address] [phone] Pcp:Sigifredo Rivera MD Subjective: * Chief Complaints: * ???Last PCP Visit: 01/13/24 * HPI: ???Foot Pain:?Nature:?numbness.?Location?B/L, L>R.?Duration:?several years.?Onset/Cause:?unknown.?Course:?unchanged.?Aggrevated:?vit b complex for past 2 yrs; pt will see pcp today to discuss PT referral .?Treatments:?Dr. Castro.?Quality/Severity?moderate, severe.?Skin problems:?Misc:? 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 * [...] * Allergies:?N.K.D.A.yes[Aller gies Verified] Objective: * Vitals:?Ht: 3de13ah, Wt:200, BMI:27.89, Shoe size: 10W, BP:132/78 mm [...] (Primary)?2.?Metatarsalgia, left foot - M77.42?3.?Unspecified atherosclerosis of [place] arteries of extremities, bilateral legs - I70.203?4.?Sensory neuron disease - G54.9?5.?Unspecified atherosclerosis of [place] arteries of extremities, bilateral legs - I70.203? Plan: * Treatment: * Procedures:?Keratoma Treatment:?Parring or Cutting of Benign Hyperkeratotic Lesion(s)?69044 ( 2-4 Lesions ) - The Benign hyperkeratotic lesions, as described above were pared, and/or cut utilizing a sterile 15 blade, tissue nippers, and/or dremel, Q8.? * Procedure Codes:?46631 TRIM SKIN LESIONS, 2 TO 4, Modifiers: [...] DPM Date:? 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
--- OUTSIDE RECORDS SUMMARY | 2024-05-18 09:00 | XMS_ITS | Patient Health Record ---
Author Organization [facility] Address [address] [place] [address] Care Team Providers Care Library Serials Assistant Name Role Phone Sigifredo Rivera MD Primary Care Provider Katelynn Lebron Unavailable [phone] Solitario Garzon Unavailable [phone] Allergies No Known Allergies Reason For Referral [...] Status Risk Notes Problem Unspecified atherosclerosis of [place] arteries of extremities, bilateral legs (I70.203) Active confirmed Problem Unspecified atherosclerosis of [place] arteries of extremities, bilateral legs (I70.203) Active confirmed Problem 80138730 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 Vital Signs Blood pressure diastolic 78 mm Hg 01/13/2024 Height 8gx25ev in 01/13/2024 Blood pressure systolic 132 mm Hg 01/13/2024 Weight 200 lbs 01/13/2024 BMI 27.89 kg/m2 01/13/2024 Procedures Procedure Date Ordered Date Performed Result Body Sit e 15752-TCYO SKIN LESIONS, 2 TO 4 07/08/2023 N/A Encounters Encounter Location Date Provider Diagnosis [address] [address] 07/08/2023 Solitario Garzon Pain in left foot M79.672 ; Metatarsalgia, left foot M77.42 ; Unspecified atherosclerosis of [place] arteries of extremities, bilateral legs I70.203 ; Closed fracture of sesamoid bone of left foot, initial encounter S92.812A ; 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 and Unspecified atherosclerosis of [place] arteries of extremities, bilateral legs I70.[address] [address] 10/13/2023 Solitario Garzon Pain in left foot M79.672 ; Metatarsalgia, left foot M77.42 ; Unspecified atherosclerosis of [place] arteries of extremities, bilateral legs I70.203 ; 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 and Unspecified atherosclerosis of [place] arteries of extremities, bilateral legs I70.[address] [address] 01/13/2024 Solitario Garzon Pain in left foot M79.672 ; Metatarsalgia, left foot M77.42 ; Unspecified atherosclerosis of [place] arteries of extremities, bilateral legs I70.203 ; 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 and Unspecified atherosclerosis of [place] arteries of extremities, bilateral legs I70.[address] [address] 04/19/2024 Katelynn Cortés Assessments Encounter Date Diagnosis (ICD Code) Assessment Notes Treatment Notes Treatment Clinical Notes Section Notes 07/08/2023 Pain in left foot (ICD-10 - M79.672) 07/08/2023 Metatarsalgia, left foot (ICD-10 - M77.42) 10/13/2023 Pain in left foot (ICD-10 - M79.672) 10/13/2023 Metatarsalgia, left foot (ICD-10 - M77.42) 01/13/2024 Pain in left foot (ICD-10 - M79.672) 10/13/2023 Unspecified atherosclerosis of [place] arteries of extremities, bilateral legs (ICD-10 - I70.203) 07/08/2023 Unspecified atherosclerosis of [place] arteries of extremities, bilateral legs (ICD-10 - I70.203) 01/13/2024 Metatarsalgia, left foot (ICD-10 - M77.42) 07/08/2023 Closed fracture of sesamoid bone of left foot, initial encounter (ICD-10 - S92.812A) 01/13/2024 Unspecified atherosclerosis of [place] arteries of extremities, bilateral legs (ICD-10 - I70.203) 07/08/2023 Sensory neuron disease (ICD-10 - G54.9) 10/13/2023 Sensory neuron disease (ICD-10 - G54.9) 01/13/2024 Sensory neuron disease (ICD-10 - G54.9) 01/13/2024 Unspecified atherosclerosis of [place] arteries of extremities, bilateral legs (ICD-10 - I70.203) 07/08/2023 Unspecified atherosclerosis of [place] arteries of extremities, bilateral legs (ICD-10 - I70.203) 10/13/2023 Unspecified atherosclerosis of [place] arteries of extremities, bilateral legs (ICD-10 - I70.203) Plan Of Treatment Pending Test Test Name Order Date X ray : Foot, left 3V 04/01/2023 00756-USFW SKIN LESIONS, 2 TO 4 07/08/19 24 Next Appt Details Provider Name:Katelynn Paul roa, 06/15/2024 02:15:00 PM, [address] [place], [address], Insurance Providers Payer Name Payer Address Payer Phone Subscriber Number Group Number Insured Name Patient Relationship to Insured Coverage Start Date Coverage End Date Medicare National Govt Svcs Inc [address] [place] [address] [id number] Davion Frank Self - patient is the insured [employer] [facility] [address] [place] [address] [phone] [id number] Davion Frank Self - patient is the insured Medical (General) History Medical History History ICD Code Back,Hip,and Knee pain CAD (Cholesterol) High blood pressure Numbness Measles Chicken pox Gout Surgical History Surgery Date(Month/Year)
--- NOTE | 2024-05-18 09:18 | MHC.PC.OV ---
Vital Signs 05/18/24 09:19 Height 5 ft 11 in Weight 211 lb BMI 29.4 BP 138/80 Blood Pressure Location Lt brachial Position Sitting Pulse 92 Pulse Source Pulse Oximeter Pulse Oximetry (%) 97 Oxygen Delivery Method Room Air Intake Visit Reasons: 3 mo f/u Narcotics And/Or Vice Detective Required: No Accompanied by: Self / Same As Patient Allergies No Known Allergies [No Known Allergies*] Allergy (Verified 05/18/24 09:19) Medication List - Last Reconciled 05/18/24 by Sigifredo Rivera MD allopurinol 300 mg PO DAILY amlodipine 10 mg PO DAILY aspirin (Adult Low Dose Aspirin) 81 mg PO DAILY atorvastatin 80 mg PO DAILY fenofibrate 54 mg PO DAILY 90 days furosemide 20 mg PO DAILY losartan 50 mg PO DAILY metoprolol tartrate 50 mg PO BID 90 days tamsulosin 0.4 mg PO BEDTIME 90 days vitamin B complex (B Complex-Vitamin B12 tablet) 1 tab PO DAILY Tobacco use date assessed: 05/18/24 Fall risk assessment: No Falls in past year Last assessed Fall Risk: 05/18/24 Dental Screening Dental Screen Date: 05/18/24 Did you have a dental visit in the last 12 months?: Yes Did you have a dental problem in the last 6 months where you did not have access to dental care?: No Was dental information given to patient?: Patient has dentist HPI 3 mo f/u HPI Details hyperlipidemia on rx; doing we;;' compliant; hypertension also in good control PFSH Medical History Atherosclerotic cardiovascular disease Prolonged QT interval Mixed hyperlipidemia History of colonic polyps Nephrolithiasis Flank pain Hypertension Surgical History Hx of colonoscopy Family History Father No problems noted. 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 1. Little interest or pleasure in doing things: not at all 2. Feeling down, depressed, or hopeless: not at all 3. Trouble falling or staying asleep, or sleeping too much: not at all 4. Feeling tired or having little energy: not at all 5. Poor appetite or overeating: not at all 6. Feeling bad about yourself - or that you are a failure or have let yourself or your family down: not at all 7. Trouble concentrating on things, such as reading the newspaper or watching television: not at all 8. Moving or speaking so slowly that other people could have noticed. Or the opposite - being so fidgety or restless that you have been moving around a lot more than usual: not at all 9. Thoughts that you would be better off or of hurting yourself in some way: not at all Total score: 0 Depression Screening Interpretation: Negative Depression Screening Done: Yes 64714 - PHQ-9 Billing: Yes Source: Developed by Drs. Fam Alba, Suraj Soria and colleagues, with an educational hannah from [employer]. Thrive Questionnaire Date Thrive assessed: 05/18/24 RAQUEL-7 AMB Questionnaire RAQUEL-7 Date RAQUEL - 7 assessed: 06/30/23 Source: Developed by Lisa Landry Kurt Kroenke and colleagues, with an educational hannah from [employer]. Review of Systems Const Denies chills, Denies headache(s) and Denies weight loss ENT Denies headache(s) Card Denies chest pain, Denies syncope, Denies irregular heart rhythm and Denies dyspnea Resp Denies chest congestion, Denies cough and Denies dyspnea GI Denies abdominal pain, Denies change in stool character, Denies nausea and Denies vomiting Musc Denies deformity and Denies joint swelling Neuro Denies syncope and Denies headache(s) Physical exam (Primary Care) Vital Signs: Last Vital Signs Pulse 92 05/18/24 09:19 BP 138/80 05/18/24 09:19 Pulse Ox 97 05/18/24 09:19 Oxygen Delivery Method Room Air 05/18/24 09:19 BMI result Body Mass Index 29.4 Tobacco/Smoking Status: Tobacco use Status Tobacco use date assessed 05/18/24 05/18/24 09:21 Patient Tobacco Use Status Former Tobacco user 05/18/24 09:21 Tobacco use type Cigarette 05/18/24 09:21 e-Cigarette/Vaping Use Never Used 05/18/24 09:21 PHQ-9: PHQ-9 Score PHQ-9: Total score 0 05/18/24 09:21 Depression Screening Interpretation: Negative Thrive Assessment: Date of Thrive Assessment Date Thrive assessed 05/18/24 05/18/24 09:26 Const General: cooperative, comfortable, no acute distress and alert Neck Neck: Yes no lymphadenopathy Thyroid: Thyroid normal Resp Effort & Inspection: normal respiratory effort Auscultation: clear to auscultation bilaterally Percussion: percussion normal Cardio Jugular venous distension: no JVD Palpation: normal PMI Rate: regular rate Rhythm: regular rhythm Heart sounds: S1 normal heart sound present and S2 normal heart sound present GI Inspection: Yes normal to inspection Palpation (GI): No hepatosplenomegaly present Skin General skin exam: no rashes or lesions noted Extrem General: Yes no clubbing, cyanosis or edema Coding Level of Care Code Est Pt Level 3 (20413) Diagnoses Hyperlipidemia E78.5 Essential hypertension I10 Additional Codes PHQ-9 - 55907 - PHQ-9 Billing: Yes ([id number]) Assessment & Plan Assessment & Plan (1) Hyperlipidemia: Code(s): E78.5 - Hyperlipidemia, unspecified Category: Medical Plan: stable; same rx (2) Essential hypertension: Code(s): I10 - Essential (primary) hypertension Category: Medical Plan: stable; same rx Orders: Orders Lipid Panel Today Z13.220 - Encounter for screening for lipoid disorders Complete Blood Count Auto Diff Today Z13.0 - Encounter for screening for diseases of the blood and blood-forming organs and certain disorders involving the immune mechanism Comprehensive [place]. Panel Fast Today Z13.9 - Encounter for screening, unspecified Uric Acid Today M10.9 - Gout, unspecified
[2024-05-18 09:19] VITALS: BP 138/80; PULSE 92; O2SAT 97; BMI 29.4
== END 2024-05-18 09:45 | disposition home or self-care (01) ==
PROVIDERS: PCP Internal Medicine; Visit Provider Internal Medicine
DX: E78.5 Hyperlipidemia, unspecified (principal); I10 Essential (primary) hypertension

== ENCOUNTER → 2024-05-18 08:58 | Outpatient (BNVA) | payer MEDICARE, SELFPAY | PROVIDERS: PCP Internal Medicine; Visit Provider Internal Medicine | DX: E78.5 Hyperlipidemia, unspecified (principal); I10 Essential (primary) hypertension | CPT/HCPCS: 96127; 99212 ==

== ENCOUNTER 2024-08-30 10:02 | Outpatient (AMB) | payer MEDICARE, SELFPAY ==
[2024-08-30 10:33] VITALS: BP 160/78; PULSE 92; BMI 29.2
--- NOTE | 2024-08-30 10:33 | A.OFFVIS_ITS ---
Vital Signs 08/30/24 10:33 Height 5 ft 11 in Weight 209 lb 7.026 oz BMI 29.2 BP 160/78 H Blood Pressure Location Lt brachial Position Sitting Pulse 92 Pulse Source Monitor Intake Visit Reasons: 6 mth /fup Allergies No Known Allergies [No Known Allergies*] Allergy (Verified 05/18/24 09:19) Medication List - Last Reconciled 08/30/24 by Jb Barrios MD allopurinol 300 mg PO DAILY amlodipine 10 mg PO DAILY aspirin (Adult Low Dose Aspirin) 81 mg PO DAILY atorvastatin 80 mg PO DAILY fenofibrate 54 mg PO DAILY 90 days furosemide 20 mg PO DAILY losartan 50 mg PO DAILY metoprolol tartrate 50 mg PO BID 90 days tamsulosin 0.4 mg PO BEDTIME 90 days vitamin B complex (B Complex-Vitamin B12 tablet) 1 tab PO DAILY HPI Comments Details: The patient is a 74-year-old male presenting with a follow-up for hypertension and coronary artery disease. He reports no significant chest pain or discomfort recently, although his blood pressure exhibits variability, particularly related to anxiety and physical exertion. In a relaxed home setting, his blood pressure has been as low as 92/68 mmHg, while it reaches approximately 135 mmHg with physical activity, but no higher. He remains on a consistent regimen of antihypertensive medications, including amlodipine, losartan, and metoprolol. In May, he had a mild COVID-19 infection, which was managed without complications. He has transitioned his primary care services to Dr. Farias after the intermediate of his previous physician, Dr. Rivera. Exercise The patient mentioned engaging in physical activities such as working outside, though specific types, duration, or frequency were not detailed. His blood pressure is noted to increase with activity but remains within a manageable range. [facility] Medical History Atherosclerotic cardiovascular disease Prolonged QT interval Mixed hyperlipidemia History of colonic polyps Nephrolithiasis Flank pain Hypertension Surgical History Hx of colonoscopy Family History Father No problems noted. 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 [employer] Cognitive needs: No Hearing needs: No Vision needs: Yes (reading glasses) Review of Systems Const Denies weakness ENT Denies dizziness Card Denies chest pain, Denies chest pain with activity, Denies syncope, Denies rapid heart rate, Denies pedal edema, Denies edema, Denies leg edema, Denies lightheadedness, Denies palpitations, Denies dyspnea, Denies dyspnea on exertion and Denies orthopnea Resp Denies cough, Denies dyspnea and Denies dyspnea on exertion GI Denies hematochezia and Denies change in stool character Musc Denies abnormal gait, Denies muscle cramps, Denies muscle weakness, Denies numbness, Denies radiating pain into limb and Denies tingling Neuro Denies abnormal gait, Denies dizziness, Denies syncope, Denies numbness, Denies tingling and Denies weakness Endo Denies palpitations Physical Exam Vital Signs: Last Vital Signs Pulse 92 08/30/24 10:33 BP 160/78 H 08/30/24 10:33 BMI result Body Mass Index 29.2 Const General: comfortable and no acute distress Orientation/consciousness: patient oriented x3 HEENT Other: Unremarkable Head: Yes normal to inspection Neck Neck: Yes normal visual inspection Chest Chest palpation & inspection: normal inspection of the chest Resp Auscultation: clear to auscultation bilaterally Cardio Palpation: normal PMI Heart sounds: S1 normal heart sound present, S2 normal heart sound present, no gallops, no murmurs and no rubs GI Palpation (GI): Soft to palpation Back/Spine/Pelvis Other: unremarkable Skin General skin exam: no rashes or lesions noted Neuro General: patient oriented x3 Extrem General: Yes normal to inspection Psych Mental Status: mental status grossly normal Office Procedures EKG Details: EKG with underlying sinus rhythm at 92/Min; right ventricular hypertrophy pattern; corrected QT of 494 milliseconds; [place]. [address]-[id number], Complete Assessment & Plan Assessment & Plan (1) Atherosclerotic cardiovascular disease: Comment: follows w/HCS Code(s): I25.10 - Atherosclerotic heart disease of [place] coronary artery without angina pectoris Category: Medical Plan: Coronary CTA 2022- Second diagonal with 50% stenosis. Mid LAD with heavy calcification, suspected <70% stenosis. Proximal to mid circumflex with likely < 60% stenosis. Second obtuse marginal with proximally < 70% stenosis. RCA with < 40% stenosis proximally; < 60% stenosis in the proximal/mid junction. Overall, diffuse CAD but no symptoms clinically. Aggressive risk factor modification. If any anginal symptoms, advised him to contact us immediately. He understands. (2) Essential hypertension: Code(s): I10 - Essential (primary) hypertension Category: Medical Plan: Mainly white coat related hypertension. Otherwise, stable at home. Continue metoprolol, losartan, amlodipine. (3) Mixed hyperlipidemia: Code(s): E78.2 - Mixed hyperlipidemia Category: Medical Plan: Remains on statins and fenofibrate. (4) Prolonged QT interval: Code(s): R94.31 - Abnormal electrocardiogram [ECG] [EKG] Category: Medical Plan: Has been a chronic finding in his EKGs. To avoid QT prolonging drugs in the future. Plan Discussion Notes During our discussion, I explained the stable nature of the patient's hypertension and coronary artery disease under current medication which includes amlodipine, losartan, and metoprolol. I emphasized the necessity of routine blood pressure monitoring, especially in response to anxiety and physical activities, and advised on reaching out should there be any changes. We discussed the mild COVID-19 infection he experienced and confirmed there is no ongoing concern. Follow-up was agreed upon in six months, with immediate contact encouraged should any cardiovascular symptoms arise. Patient was informed and verbally consented to the use of an ambient scribe for clinic note documentation during this visit. Patient Instructions: - Continue current medications: amlodipine, losartan, and metoprolol. - Monitor blood pressure regularly, especially if feeling anxious or after physical activities. - Schedule follow-up appointment in six months. - Contact the clinic immediately if there is a change in cardiovascular symptoms such as chest pain or unusual blood pressure readings. - Maintain healthy lifestyle practices to support cardiovascular health. Coding Level of Care Code Est Pt Level 4 (79549) Complex EM visit Add On G2211 Diagnoses Atherosclerotic cardiovascular disease I25.10 Essential hypertension I10 Mixed hyperlipidemia E78.2 Prolonged QT interval R94.31 CPT Codes EKG - CPT: 67717-Pqwecymcitvejjbyl, Complete ([id number])
--- OUTSIDE RECORDS SUMMARY | 2024-08-30 11:35 | XMS_ITS ---
Author Organization [facility] Address [address] [place] [address] Care Team Providers Care Jr. Systems Administrator Name Role Phone Sigifredo Rivera MD Primary Care Provider Katelynn Lebron [phone] REASON FOR VISIT rs aoot 04/20/24 Encounters Encounter Location Date Provider Diagnosis [address] [address] 04/19/2024 Katelynn Cortés Plan Of Treatment Next Appt Details Provider Name:Katelynn roa, 10/11/2024 11:15:00 AM, [address] [place] [address], [phone], Progress Notes * Davion FRANK WDOB: [birth year] (73 yo M)Acc No.[id number]:04/19/2024 Patient:?Davion FRANK :1950???Age:73 Y???Sex:Male Address:[address] [place] [address], [phone] * true * Date:? Generated for Printi reta/Facathieg/eTransmitting on:?08/30/2024 11:34 AM EDT
--- OUTSIDE RECORDS SUMMARY | 2024-08-30 11:35 | XMS_ITS | Encounter Summary ---
Author Organization [facility] Address [address] [place] [address] Phone Care Team Providers Care Submarine Worker Name Role Phone Unavailable Primary Care Provider Unavailabl e Reason for Visit * Reason Comments Med Refill Encounter Details Date Type Department Care Team (Late st Contact Info) Description 01/30/2021 Refill [facility] [address] [place] [address] Avila Ceja MD [address] [facility] [address] [place] [address] Social History Tobacco Use Types Packs/Day Years Used Date Smoking Tobacco: Former Alcohol Use Standard Drinks/Week Comments No 0 (1 standard drink = 0.6 oz pur e alcohol) Sex and Gender Information Value Date Recorded Sex Assigned at Not on file Legal Sex Male 5:08 PM EST Gender Identity Not on file Sexual Orientation Not on file documented as of this encounter Miscellaneous Notes * Telephone Encounter - Avila Ceja MD - 01/31/2021 7:05 AM EDT Needs f/u in 5-6 weeks with me 1. tell them I sent rx but no refils 2. They must see me or have a telehealth visit with me before I can renew it again 3. when u call them be sure to make the f/u appt at the same time u inform them th rx was sent by me documented in this encounter Plan of Treatment Not on file documented as of this encounter Visit Diagnoses Not on filedocumented in this encounter
--- OUTSIDE RECORDS SUMMARY | 2024-08-30 11:35 | XMS_ITS | Encounter Summary ---
Author Organization [facility] Address [address] [place] [address] Phone Care Team Providers Care Scientific Manager Name Role Phone Unavailable Primary Care Provider Unavailabl e Reason for Visit * Reason Comments Med Refill Encounter Details Date Type Department Care Team (Late st Contact Info) Description 09/23/2020 Refill [facility] [address] [place] [address] Avila Ceja MD [address] [facility] [address] [place] [address] Social History Tobacco Use Types [...] encounter Miscellaneous Notes * Telephone Encounter - Nahomy Reyes MA - 09/24/2020 11:26 AM EDT Ok I spoke with his appt was scheduled * Telephone Encounter - Avila Ceja MD - 09/23/2020 2:20 PM EDT Needs f/u in 5-6 weeks with [...]
--- OUTSIDE RECORDS SUMMARY | 2024-08-30 11:35 | XMS_ITS | Patient Health Record ---
Author Organization [facility] Address [address] [place] [address] Care Team Providers Care Ceramics Teacher Name Role Phone Sigifredo Rivera MD Primary Care Provider Katelynn Lebron Unavailable [phone] GarzonAlexisSolitario Unavailable [phone] Allergies No Known Allergies Reason For Referral No Information Medications Medication SIG (Take, Route, Frequency, Duration) Notes Start Date End Date Status Tamsulosin HCl Activ e Metoprolol Tartrate 50 MG Oral for 90 Days Active amLODIPine Besylate Active Atorvastatin Calcium Active Sushant Aspirin EC Low Dose 81 MG 1 tablet Orally Once a day for 30 day(s) 03/10/2023 Active Tamsulosin HCl 0.4 MG Oral for 30 Days Active Allopurinol Active Losartan Potassium 50 MG 1 tablet Orally Once a day Active amLODIPine Besylate 10 MG Oral for 60 Days Active Vitamin B Complex - as directed Orally 03/10/2023 Active Atorvastatin Calcium 80 MG Oral for 90 Days Active Allopurinol 300 MG Oral for 90 Days Active Fenofibrate Active Fenofibrate 54 MG Oral for 90 Days Active Sushant Aspirin Active Furosemide Active Furosemide 20 MG Oral for 90 Days Active Metoprolol Succinate Active Social History Tobacco Use: Social History Observation Description Date Details (start date - stop date) Never Smoker NA - NA Tobacco use other than smoking: Question Answer Notes Are you an other tobacco user? No Tobacco Control (Standard) Question Answer Notes Tobacco use: Nonsmoker Additional Findings: Tobacco non-user Current no nsmoker AUDIT-C (Standard) Question Answer Notes Did you have a drink containing alcohol in the p ast year? No Points 0 Interpretation Negative Problems Problem Type SNOMED Code ICD Code Onset Dates Problem Status W/U Status Risk Notes Problem Bilateral atherosclerosis of arteries of lower limbs ([id number] ) Atherosclerosis of [place] artery of both lower extremities, with unspecified presence of clinical manifestation (I70.203) Active confirmed Q7(A), Q8(2B), Q9(1B,2 C) Vital Signs Blood pressure diastolic 78 mm Hg 06/15/2024 Height 7cl40lp in 06/15/2024 Blood pressure systolic 132 mm Hg 06/15/2024 Weight 200 lbs 06/15/2024 BMI 27.89 kg/m2 06/15/2024 Procedures Procedure Date Ordered Date Performed Result Body Sit e 41645-MWURJQC NAIL, 6 OR MORE 06/15/2024 N/A 22972-JOMW SKIN LESIONS, OVER 4 06/15/2024 N/A Encounters Encounter Location Date Provider Diagnosis [address] [address] 10/13/2023 Solitario Garzon Pain in left foot M79.672 ; Metatarsalgia, left foot M77.42 ; Unspecified atherosclerosis of [place] arteries of extremities, bilateral legs I70.203 ; 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 and Unspecified atherosclerosis of [place] arteries of extremities, bilateral legs I70.[address] [address] 01/13/2024 Solitario Garzon Pain in left foot M79.672 ; Metatarsalgia, left foot M77.42 ; Unspecified atherosclerosis of [place] arteries of extremities, bilateral legs I70.203 ; 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 and Unspecified atherosclerosis of [place] arteries of extremities, bilateral legs I70.[address] [address] 06/15/2024 Katelynn Cortés Atherosclerosis of [place] artery of both lower extremities, with unspecified presence of clinical manifestation I70.203 ; Tinea unguium B35.1 ; Pain in right toe(s) M79.674 and Pain in left toe(s) M79.[address] [address] 04/19/2024 Katelynn Cortés Assessments Encounter Date Diagnosis (ICD Code) Assessment Notes Treatment Notes Treatment Clinical Notes Section Notes 10/13/2023 Pain in left foot (ICD-10 - M79.672) 10/13/2023 Metatarsalgia, left foot (ICD-10 - M77.42) 01/13/2024 Pain in left foot (ICD-10 - M79.672) 06/15/2024 Atherosclerosis of [place] artery of both lower extremities, with unspecified presence of clinical manifestation (ICD-10 - I70.203) Q7(A), Q8(2B), Q9(1B,2C) 06/15/2024 Tinea unguium (ICD-10 - B35.1) 01/13/2024 Metatarsalgia, left foot (ICD-10 - M77.42) 10/13/2023 Unspecified atherosclerosis of [place] arteries of extremities, bilateral legs (ICD-10 - I70.203) 01/13/2024 Unspecified atherosclerosis of [place] arteries of extremities, bilateral legs (ICD-10 - I70.203) 06/15/2024 Pain in right toe(s) (ICD-10 - M79.674) 06/15/2024 Pain in left toe(s) (ICD-10 - M79.675) 10/13/2023 Sensory neuron disease (ICD-10 - G54.9) 01/13/2024 Sensory neuron disease (ICD-10 - G54.9) 10/13/2023 Unspecified atherosclerosis of [place] arteries of extremities, bilateral legs (ICD-10 - I70.203) 01/13/2024 Unspecified atherosclerosis of [place] arteries of extremities, bilateral legs (ICD-10 - I70.203) Plan Of Treatment Pending Test Test Name Order Date X ray : Foot, left 3V 04/01/2023 19302-[id number] NAIL, 6 OR MORE 06/15/2024 93393-MOQY SKIN LESIONS, OVER 4 06/15/19 25 16209-SVCV SKIN LESIONS, 2 TO 4 07/08/19 24 Next Appt Details Provider Name:Katelynn roa, 10/11/2024 11:15:00 AM, [address] [facility], [place], [address], Insurance Providers Payer Name Payer Address Payer Phone Subscriber Number Group Number Insured Name Patient Relationship to Insured Coverage Start Date Coverage End Date Medicare National [employer]t [employer] [address] [place] [address] [id number] Davion Frank Self - patient is the insured [employer] [facility] [address] [place] [address] [phone] [id number] Davion Frank Self - patient is the insured Medical (General) History Medical History History ICD Code Back,Hip,and Knee pain CAD (Cholesterol) High blood pressure Numbness Measles Chicken pox Gout Surgical History Surgery Date(Month/Year)
--- OUTSIDE RECORDS SUMMARY | 2024-08-30 11:35 | XMS_ITS | Encounter Summary ---
Author Organization [facility] Address [address] [place] [address] Phone Care Team Providers Care Animal Husbandman Name Role Phone Unavailable Primary Care Provider Unavailabl e Reason for Visit * Reason Comments Med Refill Encounter Details Date Type Department Care Team (Late st Contact Info) Description 08/17/2024 Refill [facility] [address] [place] [address] Nino Gan MD [address] [facility] [address] [place] [address] Social History Tobacco Use Types [...] on file documented as of this encounter Plan of Treatment Not on file documented as of this encounter Visit Diagnoses Not on filedocumented in this encounter
--- OUTSIDE RECORDS SUMMARY | 2024-08-30 11:35 | XMS_ITS | Encounter Summary ---
Author Organization [facility] Address [address] [place] [address] Phone Care Team Providers Care Soundscriber Mechanic Name Role Phone Unavailable Primary Care Provider Unavailabl e Reason for Visit * Reason Comments Med Refill Encounter Details Date Type Department Care Team (Late st Contact Info) Description 09/01/2020 Refill [facility] [address] [place] [address] Avila Ceja MD [address] [facility] [address] [place] [address] Social History Tobacco Use Types [...] Telephone Encounter - Avila Ceja MD - 09/02/2020 2:00 AM EDT Needs f/u in 5-6 wks--I sent rx documented in this encounter Plan of Treatment Not on file documented as of this encounter Visit Diagnoses Not on filedocumented in this encounter
--- OUTSIDE RECORDS SUMMARY | 2024-08-30 11:35 | XMS_ITS | Clinical Summary ---
Author Organization [facility] Address [address] [place] [address] Care Team Providers Care Clothes Model Name Role Phone Unavailable Primary Care Provider Unavailabl e Allergies No known active allergies Medications metoprolol tartrate (LOPRESSOR) 50 MG tablet Take 1 tablet by mouth 1 (one) time each day Active allopurinol (ZYLOPRIM) 300 MG tablet Take 1 tablet by mouth 1 (one) time each day Active atorvastatin (LIPITOR) 80 MG tablet 09/11/2020 Active fenofibrate (TRICOR) 54 MG tablet 10/22/2020 Active furosemide (LASIX) 20 MG tabletIndicatio ns:Hypertension ,Acute injury of kidney Take 1 tablet (20 mg total) by mouth 1 (one) time each day 90 tablet 3 07/14/2022 Active cyanocobalamin (VITAMIN B-12) 100 MCG tablet Take 50 mcg by mouth 1 (one) time each day Active aspirin 81 MG chewable tablet Chew 81 mg 1 (one) time each day Active gabapentin (NEURONTIN) 300 MG capsule Take 300 mg by mouth in the morning and 300 mg in the evening and 300 mg before bedtime. Active amLODIPine (NORVASC) 10 MG tablet Take 1 tablet (10 mg total) by mouth 1 (one) time each day 60 tablet 5 08/29/2023 Active Active Problems Problem Noted Date Diagnosed Date Chronic kidney disease stage 2 10/28/2020 Essential hypertension 10/28/2020 Hypertensive renal disease 10/28/2020 Encounters Date Type Department Care Team Description 08/17/2024 Refill [facility] [address] [place] [id number] Nino Gan MD from Last 3 Months Family History Medical History Relation Comments Heart disease Father Hypertension Father Hypertension Mother Kidney disease Mother stenting Relation Status Comments Father Mother Alive Social History Tobacco Use Types Packs/Day Years Used Date Smoking Tobacco: Former Alcohol Use Standard Drinks/Week Comments No 0 (1 standard drink = 0.6 oz pur e alcohol) Sex and Gender Information Value Date Recorded Sex Assigned at Not on file Legal Sex Male 5:08 PM EST Gender Identity Not on file Sexual Orientation Not on file Last Filed Vital Signs Vital Sign Reading Time Taken Comments Blood Pressure 144/72 07/16/2022 1:18 PM EST Pulse 102 07/16/2022 1:18 PM EST Temperature - - Respiratory Rate - - Oxygen Saturation 96% 07/16/2022 1:18 PM EST Inhaled Oxygen Concentration - - Weight 95.3 kg (210 lb) 07/16/2022 1:18 PM EST Height 180.3 cm (5' 11 ) 07/27/2018 12:00 PM EDT Body Mass Index 29.29 07/27/2018 12:00 PM EDT Plan of Treatment Health Maintenance Due Date Last Done Comments Pneumococcal Vaccine: 50+ Ye ars (1 of 2 - PCV) 1971 Colorectal Cancer Screening: Annual FOBT 2001 Colorectal Cancer Screening: Colonoscopy 2001 Colorectal Cancer Screening: Sigmoidoscopy 2001 Influenza Vaccine (Season Ended) 2025 Hepatitis B Vaccine Aged Out No longe r eligible based on patient's age to complete this topic Insurance [facility] Medicare [facility] Medicare
--- OUTSIDE RECORDS SUMMARY | 2024-08-30 11:35 | XMS_ITS | Encounter Summary ---
Author Organization [facility] Address [address] [place] [address] Phone Care Team Providers Care Contour Stitcher Name Role Phone Unavailable Primary Care Provider Unavailabl e Reason for Visit * Reason Comments Med Refill Encounter Details Date Type Department Care Team (Late st Contact Info) Description 02/26/2021 Refill [facility] [address] [place] [address] Avila Ceja MD [address] [facility] [address] [place] [address] Social History Tobacco Use Types [...] Telephone Encounter - Avila Ceja MD - 02/26/2021 2:38 PM EDT Needs f/u in 5-6 weeks [...]
--- OUTSIDE RECORDS SUMMARY | 2024-08-30 11:36 | XMS_ITS | Encounter Summary ---
Author Organization [facility] Address [address] [place] [address] Phone Care Team Providers Care Entry Level Installation Technician Name Role Phone Unavailable Primary Care Provider Unavailabl e Reason for Visit * Reason Comments Med Refill Encounter Details Date Type Department Care Team (Late st Contact Info) Description 04/28/2021 Refill [facility] [address] [place] [address] Avila Ceja MD [address] [facility] [address] [place] [address] Social History Tobacco Use Types [...] Telephone Encounter - Nahomy Reyes MA - 04/30/2021 9:44 AM EST Done vm was left * Telephone Encounter - Avila Ceja MD - 04/29/2021 1:52 PM EST Needs f/u in 5-6 weeks with me [...]
--- OUTSIDE RECORDS SUMMARY | 2024-08-30 11:36 | XMS_ITS ---
Author Organization [facility] Address [address] [place] [address] Care Team Providers Care Consumer Analyst Name Role Phone Sigifredo Rivera MD Primary Care Provider Katelynn Lebron Unavailable [phone] Allergies No Known Allergies REASON FOR VISIT At Risk Footcare, Painful Nail(s) aggravated by shoes and causing difficulty standing/walking. Medications Medication SIG (Take, Route, Frequency, Duration) Notes Start Date End Date Status Tamsulosin HCl 0.4 MG Oral for 30 Days Active amLODIPine Besylate 10 MG Oral for 60 Days Active Atorvastatin Calcium 80 MG Oral for 90 Days Active Allopurinol 300 MG Oral for 90 Days Active Fenofibrate 54 MG Oral for 90 Days Active Metoprolol Tartrate 50 MG Oral for 90 Days Active Furosemide 20 MG Oral for 90 Days Active Sushant Aspirin EC Low Dose 81 MG 1 tablet Orally Once a day for 30 day(s) 03/10/2023 Active Losartan Potassium 50 MG 1 tablet Orally Once a day Active Vitamin B Complex - as directed Orally 03/10/2023 Active Furosemide Active Metoprolol Succinate Active [...] Bilateral atherosclerosis of arteries of lower limbs ([id number] ) Atherosclerosis of [place] artery of both lower extremities, with unspecified presence of clinical manifestation (I70.203) Active confirmed Q7(A), Q8(2B), Q9(1B,2 C) Vital Signs Height 4wa26hg in 06/15/2024 Weight 200 lbs 06/15/2024 BMI 27.89 kg/m2 06/15/2024 Blood pressure systolic 132 mm Hg 06/15/19 Blood pressure diastolic 78 mm Hg 025 Procedures Procedure Date Ordered Date Performed Result Body Sit e 04410-SXVSXYP NAIL, 6 OR MORE 06/15/2024 N/A 74171-OZSO SKIN LESIONS, OVER 4 06/15/2024 N/A Encounters Encounter Location Date Provider Diagnosis [facility] [place] [address] [place] [address] 06/15/2024 Katelynn Cortés Atherosclerosis of [place] artery of both lower extremities, with unspecified presence of clinical manifestation I70.203 ; Tinea unguium B35.1 ; Pain in right toe(s) M79.674 and Pain in left toe(s) M79.675 Assessments Encounter Date Diagnosis (ICD Code) Assessment Notes Treatment Notes Treatment Clinical Notes Section Notes 06/15/2024 Atherosclerosis of [place] artery of both lower extremities, with unspecified presence of clinical manifestation (ICD-10 - I70.203) Q7(A), Q8(2B), Q9(1B,2C) 06/15/2024 Tinea unguium (ICD-10 - B35.1) 06/15/2024 Pain in right toe(s) (ICD-10 - M79.674) 06/15/2024 Pain in left toe(s) (ICD-10 - M79.675) Plan Of Treatment Pending Test Test Name Order Date 39768-VBTCLMI NAIL, 6 OR MORE 06/15/2024 09731-ETHQ SKIN LESIONS, OVER 4 06/15/19 25 Next Appt Details Follow Up: 3 Months, Reason: Provider Name:Katelynn roa, 10/11/2024 11:15:00 AM, [address] [place], [address], Procedure Notes * Category Sub-Category Detail Notes Debride Nail 6-10 Nail debridement Due to the cl inical pathology outlined in the exam findings, performance of this nail treatment is medically necessary as its management by an unskilled/untrained nonprofessional would put this patients foot and overall health at risk. Therefore, debridement to affected nail(s), as described in exam ( TA, T1, T2, T3, T4, T5, T6, T7, T8, T9, ), was performed exclusively by the physician of record to reduce/remove overall nail length, girth, thickness, subungual debris, and necrotic tissue, by manual and/or electrical means through the use of a nail nipper and/or dremel-type carbon plant grinder, to a more viable healthy nail plate or bed tissue 6-10 nails in total. Silver nitrate was used for any petechial bleeding as necessary. Definitive antifungal treatment options, both pharmaceutical and surgical, have been reviewed and discussed with the patient. The patient solely prefers the use of intermittent/as needed professional debridement services for their nail condition and understands the need for additional periodic treatments to maintain effectiveness in symptomatic relief - 49742 Keratoma Treatment Parring or Cutting o f Benign Hyperkeratotic Lesion(s) (-57) More than 4 Lesions - Due to the at risk nature of the patients medical condition as documented in the exam findings, performance of this keratoderma treatment is medically necessary as its management by an unskilled/untrained nonprofessional would put this patients foot and overall health at risk. Therefore, the benign hyperkeratotic lesions, ( 6 ) in total, locations as stated and described in the exam (sub 1st MTH B/L, sub 5th MTH, Left, Plantar heels B/L ), were pared, and/or cut utilizing a sterile 15 blade, tissue nippers, and/or power dremel instrumentation by the physician of record - 41036 Progress Notes * Davion FRANK WDOB: [birth year] (74 yo M)Acc No.[id number]:06/15/2024 Progress Note Patient:?BHUMI Davion W Provider:?Katelynn Cortés DPM :1950???Age:74 Y???Sex:Male Jean e:06/15/2024 Address:[address] [place] [phone] Pcp:Sigifredo Rivera MD Subjective: * Chief Complaints: * ???At Risk FootcarePainful N ail(s) aggravated by shoes and causing difficulty standing/walking. * HPI: ???At Risk footcare:?Pt States Last PCP Visit:?Date?05/04/2024 * ROS:?General/Constitutional:?Nausea?denies.?Vomiting?denies.?Hunger Thirst?denies.?Loss appetite?denies.?Chills?denies.?Fatigue?denies.?Fever?denies.?Night Sweats?denies.?Unexplained weight loss?denies.?Unexplained [...] Unspecified heart disease.? * Social History:?Tobacco Use:?Tobacco use other than smoking?Are you an other tobacco user??No ?Tobacco Control (Standard)?Tobacco use:?Nonsmoker ?Additional Findings: Tobacco non-user?Current nonsmoker ???Drugs/Alcohol:?Drugs?Have you used drugs other than those for medical reasons in the past 12 months??No ???Miscellaneous:?Caffeine: yes, frequency: , 1-2 cups per day. ?Children: no. ?Exercise: yes, golf. ?Marital status: . ?Occupation: Works Part-time. ???Drug/Alcohol:?AUDIT-C (Standard)?Did you have a drink containing alcohol in the past year??No ?Points?0 ?Interpretation?Negative * Medications:?TakingLosartan Potassium 50 MG Tablet 1 tablet Orally Once a day Vitamin B Complex - Tablet as directed Orally Sushant Aspirin EC Low Dose 81 MG Tablet Delayed Release 1 tablet Orally Once a day Furosemide 20 MG Tablet Oral Metoprolol Tartrate 50 [...] MG Tablet 1 tablet Orally Once a day Taking Vitamin B Complex - Tablet as directed Orally Taking Sushant Aspirin EC Low Dose 81 MG Tablet Delayed Release 1 tablet Orally Once a day Taking Furosemide 20 MG Tablet Oral Taking Metoprolol [...] patient * Allergies:?N.K.D.A.yes[Aller gies Verified] Objective: * Vitals:?Ht:4gi85bj, Wt:200, BMI:27.89, Shoe size:10W, BP:132/78mm Hg, Ht-cm: 180.34 cm, Wt-k.72 kg. * Examination: ???Vascular: ?DP PULSES (B):? 0/4, B/L.?PT PULSES (B):? 0/4, B/L.?CAPILLARY FILL TIME:? delayed, all digits, B/L.?TROPHIC CONDITION-TEXTURE/ELASTICITY/TURGOR/HAIR GROWTH (B):? decreased, fragile, thin, shiny skin, with sparse to absent hair growth, B/L.?TEMPERTURE GRADIENT (C):? decreased, cool to cool, proximal to distal, B/L.?PIGMENTATION:?brawny, B/L.?EDEMA (C):?absent, B/L.?CLAUDICATION (C):?denies, B/L.?REST PAIN:?denies, B/L.?PARESTHESIA (C):?absent, B/L.?BURNING (C):?absent, B/L.?Nails: ?NAILS are:? Elongated, overgrown, dystrophic, lytic, greater than 3mm thick, discolored and friable with crumbly malodorous subungual debris, with pain on palpation.?Dermatologic: ?SKIN FINDINGS:?Skin exam reveals Keratotic lesion(s) located at sub 1st MTH B/L, sub 5th MTH, Left, Plantar heels B/L.?Orthopedic: ?MUSCLE STRENGTH:?5/5 all groups in a symmetrical fashion, B/L.?Neurological: ?SENSORY:?Neurological exam reveals intact sensorium, pain sensation normal, vibration sensation intact, pinprick sensation is normal in the lower extremities, Pt denies, anesthesia, burning, paresthesia, tingling, B/L.?General Examination: ?GENERAL APPEARANCE:?Reveals a pleasant, alert, well nourished, well- developed, well hydrated individual, who demonstrates proper attention to hygiene/body habitus, and is in no acute distress, Pt serves as own historian for office visit today.?ORIENTED:?person, place, and time.? Assessment: * Assessment: 1.?Atherosclerosis of [place] artery of both lower extremities, with unspecified presence of clinical manifestation - I70.203 (Primary)???Notes :Q7(A), Q8(2B), Q9(1B,2C)???2.?Tinea unguium - B35.1???3.?Pain in right toe(s) - M79.674???4.?Pain in left toe(s) - M79.675??? Plan: * Treatment: 2.?Tinea unguium?Procedure: 55014-GUTWEWQ NAIL, 6 OR MORE * Procedures:?Debride Nail 6-10:?Nail debridement?Due to the clinical pathology outlined in the exam findings, performance of this nail treatment is medically necessary as its management by an unskilled/untrained nonprofessional would put this patients foot and overall health at risk. Therefore, debridement to affected nail(s), as described in exam ( TA, T1, T2, T3, T4, T5, T6, T7, T8, T9, ), was performed exclusively by the physician of record to reduce/remove overall nail length, girth, thickness, subungual debris, and necrotic tissue, by manual and/or electrical means through the use of a nail nipper and/or dremel-type carbon plant grinder, to a more viable healthy nail plate or bed tissue 6- 10 nails in total. Silver nitrate was used for any petechial bleeding as necessary. Definitive antifungal treatment options, both pharmaceutical and surgical, have been reviewed and discussed with the patient. The patient solely prefers the use of intermittent/as needed professional debridement services for their nail condition and understands the need for additional periodic treatments to maintain effectiveness in symptomatic relief - 13131.?Keratoma Treatment:?Parring or Cutting of Benign Hyperkeratotic Lesion(s)?(-57) More than 4 Lesions - Due to the at risk nature of the patients medical condition as documented in the exam findings, performance of this keratoderma treatment is medically necessary as its management by an unskilled/untrained nonprofessional would put this patients foot and overall health at risk. Therefore, the benign hyperkeratotic lesions, ( 6 ) in total, locations as stated and described in the exam (sub 1st MTH B/L, sub 5th MTH, Left, Plantar heels B/L ), were pared, and/or cut utilizing a sterile 15 blade, tissue nippers, and/or power dremel instrumentation by the physician of record - 07509.? * Procedure Codes:?24237 DEBRI DE NAIL, 6 OR MORE, Modifiers: XS 05608 TRIM SKIN LESIONS, OVER 4, Modifiers: XS * Follow Up:?3 Months * Images: * Sign off status: Completed true * Provider:Elena Cortés DPM Date:?0 06/15/2024 Generated for Joaquín mcduffie/Neo/Darius on:?08/30/2024 11:35 AM EDT History and Physical Notes * HPI (History of Present Illness) Category Sub-Category Detail Notes Category Not es At Risk footcare Pt States Last PCP Visit: Date: 4 Examination Category Sub-Category Detail Notes Category Not es Neurological SENSORY: Neurological exa m reveals intact sensorium, pain sensation normal, vibration sensation intact, pinprick sensation is normal in the lower extremities, Pt denies, anesthesia, burning, paresthesia, tingling, B/L Dermatologic SKIN FINDINGS: Skin exam reveal s Keratotic lesion(s) located at sub 1st MTH B/L, sub 5th MTH, Left, Plantar heels B/L Orthopedic MUSCLE STRENGTH: 5/5 all groups in a symmetrical fashion, B/L General Examination GENERAL APPEARANCE: Reveals a pleasant, alert, well nourished, well-developed, well hydrated individual, who demonstrates proper attention to hygiene/body habitus, and is in no acute distress, Pt serves as own historian for office visit today ORIENTED: person, place, and t anita Vascular DP PULSES (B): 0/4, B/L PT PULSES (B): 0/4, B/L CAPILLARY FILL TIME: delayed, all digits , B/L TEMPERTURE GRADIENT (C): decreased, cool to cool, proximal to distal, B/L TROPHIC CONDITION-TEXTURE/ELASTICITY/TURGOR/HAIR GROWTH (B): decreased, fragile, thin, shiny skin, wi th sparse to absent hair growth, B/L EDEMA (C): absent, B/L CLAUDICATION (C): denies, B/L REST PAIN: denies, B/L PIGMENTATION: brawny, B/L PARESTHESIA (C): absent, B/L BURNING (C): absent, B/L Nails NAILS are: Elongated, overg rown, dystrophic, lytic, greater than 3mm thick, discolored and friable with crumbly malodorous subungual debris, with pain on palpation
--- OUTSIDE RECORDS SUMMARY | 2024-08-30 11:36 | XMS_ITS ---
Author Organization [facility] Address [address] [place] [address] Care Team Providers Care Hunter Guide Name Role Phone Sigifredo Rivera MD Primary Care Provider Katelynn Lebron [phone] Encounters Encounter Location Date Provider Diagnosis [address] [address] 04/20/2024 Katelynn Cortés Plan Of Treatment Next Appt Details Provider Name:Katelynn roa, 10/11/2024 11:15:00 AM, [address] [place] [address], [phone], Progress Notes * Davion FRANK WDOB: [birth year] (74 yo M)Acc No.[id number]:04/20/2024 Progress Note Patient:?Davion FRANK Provider:?Katelynn Cortés DPM :1950???Age:73 Y???Sex:Male Jean e:04/20/2024 Address:[address] [place] [address] Pcp:Sigifredo Rivera MD Subjective: * Chief Complaints: [...] DPM Date:?1 06/21/2023 Generated for Joaquín mcduffie/Neo/Darius on:?08/30/2024 11:35 AM EDT
== END 2024-08-30 10:55 | disposition home or self-care (01) ==
PROVIDERS: PCP Internal Medicine; Visit Provider Internal Medicine
DX: I25.10 Atherosclerotic heart disease of native coronary artery without angina pectoris (principal); I10 Essential (primary) hypertension; E78.2 Mixed hyperlipidemia; R94.31 Abnormal electrocardiogram [ECG] [EKG]
CPT/HCPCS: 93010; 99214; G2211

== ENCOUNTER → 2024-08-30 10:02 | Outpatient (BNVA) | payer MEDICARE, SELFPAY | PROVIDERS: PCP Internal Medicine; Visit Provider Internal Medicine | DX: I10 Essential (primary) hypertension (principal); I25.10 Atherosclerotic heart disease of native coronary artery without angina pectoris; E78.2 Mixed hyperlipidemia; R94.31 Abnormal electrocardiogram [ECG] [EKG] | CPT/HCPCS: 93005; 99212 ==

== ENCOUNTER 2024-09-09 06:40 | Outpatient (REF) | payer MEDICARE, SELFPAY ==
--- OUTSIDE RECORDS SUMMARY | 2024-09-09 06:43 | XMS_ITS ---
Author Organization [facility] Address [address] [place] [address] Care Team Providers Care Private Duty Rn Name Role Phone Sigifredo Rivera MD Primary Care Provider Katelynn Lebron [phone] REASON FOR VISIT rs aoot 04/20/24 Encounters Encounter Location Date Provider Diagnosis [address] [address] 04/19/2024 Katelynn Cortés Plan Of Treatment Next Appt Details Provider Name:Katelynn roa, 10/11/2024 11:15:00 AM, [address] [place] [address], [phone], Progress Notes * Davion FRANK WDOB: [birth year] (73 yo M)Acc No.[id number]:04/19/2024 Patient:?Davion FRANK :1950???Age:73 Y???Sex:Male Address:[address] [place] [address], [phone] * true * Date:? Generated for Printi reta/Faacthieg/eTransmitting on:?09/09/2024 06:42 AM EDT
--- OUTSIDE RECORDS SUMMARY | 2024-09-09 06:43 | XMS_ITS | Encounter Summary ---
Author Organization [facility] Address [address] [place] [address] Phone Care Team Providers Care Business Support Associate Name Role Phone Unavailable Primary Care Provider Unavailabl e Reason for Visit * Reason Comments Med Refill Encounter Details Date Type Department Care Team (Late st Contact Info) Description 04/28/2021 Refill [facility] [address] [place] [address] Avila Ceja MD [address] [facility] [address] [place] [address] Social History Tobacco Use Types [...]
--- OUTSIDE RECORDS SUMMARY | 2024-09-09 06:43 | XMS_ITS | Patient Health Record ---
[facility] Address [address] [place] [address] Care Team Providers Care Engineering Program Analyst Name Role Phone Sigifredo Rivera MD Primary Care Provider Katelynn Lebron Unavailable [phone] GarzonAlexisSolitario Unavailable [phone] Allergies No Known Allergies Reason For Referral [...] Bilateral atherosclerosis of arteries of lower limbs ([id number] ) Atherosclerosis of [place] artery of both lower extremities, with unspecified presence of clinical manifestation (I70.203) Active confirmed Q7(A), Q8(2B), Q9(1B,2 C) Vital Signs Blood pressure diastolic 78 mm Hg 06/15/2024 Height 3vz97nv in 06/15/2024 Blood pressure systolic 132 mm Hg 06/15/2024 Weight 200 lbs 06/15/2024 BMI 27.89 kg/m2 06/15/2024 Procedures Procedure Date Ordered Date Performed Result Body Sit e 98595-DCXBVFH NAIL, 6 OR MORE 06/15/2024 N/A 96308-JODE SKIN LESIONS, OVER 4 06/15/2024 N/A Encounters Encounter Location Date Provider Diagnosis [address] [address] 10/13/2023 Solitario Garzon Pain in left foot M79.672 ; Metatarsalgia, left foot M77.42 ; Unspecified atherosclerosis of [place] arteries of extremities, bilateral legs I70.203 ; 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 and Unspecified atherosclerosis of [place] arteries of extremities, bilateral legs I70.[address] [address] 01/13/2024 Solitario Garzon Pain in left foot M79.672 ; Metatarsalgia, left foot M77.42 ; Unspecified atherosclerosis of [place] arteries of extremities, bilateral legs I70.203 ; 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 and Unspecified atherosclerosis of [place] arteries of extremities, bilateral legs I70.[address] [address] 06/15/2024 Katelynn Cortés Atherosclerosis of cow[place] artery of both lower extremities, with unspecified presence of clinical manifestation I70.203 ; Tinea unguium B35.1 ; Pain in right toe(s) M79.674 and Pain in left toe(s) M79.[address] [address] 04/19/2024 Katelynn Cortés Assessments Encounter Date Diagnosis (ICD Code) Assessment Notes Treatment Notes Treatment Clinical Notes Section Notes 10/13/2023 Pain in left foot (ICD-10 - M79.672) 10/13/2023 Metatarsalgia, left foot (ICD-10 - M77.42) 01/13/2024 Pain in left foot (ICD-10 - M79.672) 06/15/2024 Atherosclerosis of cowl[place] artery of both lower extremities, with unspecified presence of clinical manifestation (ICD-10 - I70.203) Q7(A), Q8(2B), Q9(1B,2C) 06/15/2024 Tinea unguium (ICD-10 - B35.1) 01/13/2024 Metatarsalgia, left foot (ICD-10 - M77.42) 10/13/2023 Unspecified atherosclerosis of cow[place] arteries of extremities, bilateral legs (ICD-10 - I70.203) 01/13/2024 Unspecified atherosclerosis of cow[place] arteries of extremities, bilateral legs (ICD-10 - I70.203) 06/15/2024 Pain in right toe(s) (ICD-10 - M79.674) 06/15/2024 Pain in left toe(s) (ICD-10 - M79.675) 10/13/2023 Sensory neuron disease (ICD-10 - G54.9) 01/13/2024 Sensory neuron disease (ICD-10 - G54.9) 10/13/2023 Unspecified atherosclerosis of cow[place] arteries of extremities, bilateral legs (ICD-10 - I70.203) 01/13/2024 Unspecified atherosclerosis of cow[place] arteries of extremities, bilateral legs (ICD-10 - I70.203) Plan Of Treatment Pending Test Test Name Order Date X ray : Foot, left 3V 04/01/2023 56966-LQPAVON NAIL, 6 OR MORE 06/15/2024 70621-EBIY SKIN LESIONS, OVER 4 06/15/19 25 10575-SVCX SKIN LESIONS, 2 TO 4 07/08/19 24 Next Appt Details Provider Name:Katelynn roa, 10/11/2024 11:15:00 AM, [address] [facility], [place], [address], Insurance Providers Payer Name Payer Address Payer Phone Subscriber Number Group Number Insured Name Patient Relationship to Insured Coverage Start Date Coverage End Date Medicare [employer] [address] [place] [address] [id number] Davion Frank Self - patient is the insured [employer] [facility] [address] [place] [address] [phone] [id number] Davion Frank Self - patient is the insured Medical (General) History Medical History History ICD Code Back,Hip,and Knee pain CAD (Cholesterol) High blood pressure Numbness Measles Chicken pox Gout Surgical History Surgery Date(Month/Year)
--- OUTSIDE RECORDS SUMMARY | 2024-09-09 06:43 | XMS_ITS | Clinical Summary ---
Author Organization [facility] Address [address] [place] [address] Care Team Providers Care Coal Deliverer Name Role Phone Unavailable Primary Care Provider Unavailabl e Allergies No known active allergies Medications metoprolol tartrate (LOPRESSOR) 50 MG tablet Take 1 tablet by mouth 1 (one) time each day Active allopurinol (ZYLOPRIM) 300 MG tablet Take 1 tablet by mouth 1 (one) time each day Active atorvastatin (LIPITOR) 80 MG tablet 1 Active fenofibrate (TRICOR) 54 MG tablet 1 Active furosemide (LASIX) 20 MG tabletIndicati ons:Hypertensi on,Acute injury of kidney Take 1 tablet (20 mg total) by mouth 1 (one) time each day 90 tablet 3 3 Active cyanocobalamin (VITAMIN B-12) 100 MCG tablet Take 50 mcg by mouth 1 (one) time each day Active aspirin 81 MG chewable tablet Chew 81 mg 1 (one) time each day Active gabapentin (NEURONTIN) 300 MG capsule Take 300 mg by mouth in the morning and 300 mg in the evening and 300 mg before bedtime. Active amLODIPine (NORVASC) 10 MG tablet TAKE ONE TABLET BY MOUTH ONCE DAILY 60 tablet 5 5 Active amLODIPine (NORVASC) 10 MG tablet Take 1 tablet (10 mg total) by mouth 1 (one) time each day 60 tablet 5 4 09/07/19 25 Discontinued Active Problems Problem Noted Date Diagnosed Date Chronic kidney disease stage 2 10/28/2020 Essential hypertension 10/28/2020 Hypertensive renal disease 10/28/2020 Encounters Date Type Department Care Team Description 09/06/2024 Refill [facility] [address] [place] [address] Nino Gan MD 08/17/2024 Refill [facility] [address] [place] [address] Nino Gan MD from Last 3 Months [...] patient's age to complete this topic Insurance [facility] Medicare [facility] Medicare
--- OUTSIDE RECORDS SUMMARY | 2024-09-09 06:43 | XMS_ITS | Encounter Summary ---
Author Organization [facility] Address [address] [place] [address] Phone Care Team Providers Care Glass Inspector Name Role Phone Unavailable Primary Care Provider Unavailabl e Reason for Visit * Reason Comments Med Refill Encounter Details Date Type Department Care Team (Late st Contact Info) Description 09/06/2024 Refill [facility] [address] [place] [address] Nino Gan MD [address] [facility] [address] [place] [address] Social History Tobacco Use Types [...]
--- OUTSIDE RECORDS SUMMARY | 2024-09-09 06:43 | XMS_ITS ---
Author Organization [facility] Address [address] [place] [address] Care Team Providers Care Candy Polisher Name Role Phone Sigifredo Rivera MD Primary Care Provider Katelynn Lebron [phone] Encounters Encounter Location Date Provider Diagnosis [address] [address] 04/20/2024 Katelynn Cortés Plan Of Treatment Next Appt Details Provider Name:Katelynn roa, 10/11/2024 11:15:00 AM, [address] [place] [address], [address], Progress Notes * Davion FRANK WDOB: [birth year] (74 yo M)Acc No.[id number]:04/20/2024 Progress Note Patient:?Davion FRANK Provider:?Katelynn Cortés DPM :1950???Age:73 Y???Sex:Male Jean e:04/20/2024 Address:[address] [place] [phone] Pcp:Sigifredo Rivera MD Subjective: * Chief Complaints: [...] DPM Date:?1 06/21/2023 Generated for Joaquín mcduffie/Neo/Darius on:?09/09/2024 06:43 AM EDT
--- OUTSIDE RECORDS SUMMARY | 2024-09-09 06:43 | XMS_ITS ---
Author Organization [facility] Address [address] [place] [address] Care Team Providers Care Glacing Machine Tender Name Role Phone Sigifredo Rivera MD Primary Care Provider Katelynn Lebron Unavailable [phone] Allergies No Known Allergies REASON FOR VISIT [...] Bilateral atherosclerosis of arteries of lower limbs ([id number] ) Atherosclerosis of [place] artery of both lower extremities, with unspecified presence of clinical manifestation (I70.203) Active confirmed Q7(A), Q8(2B), Q9(1B,2 C) Vital Signs Blood pressure systolic 132 mm Hg 06/15/19 25 Blood pressure diastolic 78 mm Hg 025 Height 8kz59gd in 06/15/2024 Weight 200 lbs 06/15/2024 BMI 27.89 kg/m2 06/15/2024 Procedures Procedure Date Ordered Date Performed Result Body Sit e 29002-OSJKSNU NAIL, 6 OR MORE 06/15/2024 N/A 51341-VMWB SKIN LESIONS, OVER 4 06/15/2024 N/A Encounters Encounter Location Date Provider Diagnosis [facility] [address] [place] [address] 06/15/2024 Katelynn Cortés Atherosclerosis of [place] artery of both lower extremities, with unspecified presence of clinical manifestation I70.203 ; Tinea unguium B35.1 ; Pain in right toe(s) M79.674 and Pain in left toe(s) M79.675 Assessments Encounter Date Diagnosis (ICD Code) Assessment Notes Treatment Notes Treatment Clinical Notes Section Notes 06/15/2024 Atherosclerosis of [place] artery of both lower extremities, with unspecified presence of clinical manifestation (ICD-10 - I70.203) Q7(A), Q8(2B), Q9(1B,2C) 06/15/2024 Tinea unguium (ICD-10 - B35.1) 06/15/2024 Pain in right toe(s) (ICD-10 - M79.674) 06/15/2024 Pain in left toe(s) (ICD-10 - M79.675) Plan Of Treatment Pending Test Test Name Order Date 30557-IJEWVBP NAIL, 6 OR MORE 06/15/2024 12194-MFYC SKIN LESIONS, OVER 4 06/15/19 25 Next Appt Details Follow Up: 3 Months, Reason: Provider Name:Katelynn roa, 10/11/2024 11:15:00 AM, [address] [place], [address], Procedure Notes * Category Sub-Category Detail Notes [...] use of a nail nipper and/or dremel-type universal grinder set up operator, to a more viable healthy nail plate [...] to maintain effectiveness in symptomatic relief - 34671 Keratoma Treatment Parring or Cutting o f [...] instrumentation by the physician of record - 21322 Progress Notes * Davion FRANK WDOB: [birth year] (74 yo M)Acc No.[id number]:06/15/2024 Progress Note Patient:?BHUMI Davion W Provider:?Katelynn Cortés DPM :1950???Age:74 Y???Sex:Male Jean e:06/15/2024 Address:[address] [place] [id number] Pcp:Sigifredo Rivera MD Subjective: * Chief Complaints: [...] patient * Allergies:?N.K.D.A.yes[Aller gies Verified] Objective: * Vitals:?Ht:9ok85nu, Wt:200, BMI:27.89, Shoe size:10W, BP:132/78mm Hg, Ht-cm: [...] and time.? Assessment: * Assessment: 1.?Atherosclerosis of [place] artery of both lower extremities, with unspecified presence of clinical manifestation - I70.203 (Primary)???Notes :Q7(A), Q8(2B), Q9(1B,2C)???2.?Tinea unguium - B35.1???3.?Pain in right toe(s) - M79.674???4.?Pain in left toe(s) - M79.675??? Plan: * Treatment: 2.?Tinea unguium?Procedure: 25963-LAPUQSE NAIL, 6 OR MORE * Procedures:?Debride Nail [...] use of a nail nipper and/or dremel-type universal grinder set up operator, to a more viable healthy nail plate [...] to maintain effectiveness in symptomatic relief - 24986.?Keratoma Treatment:?Parring or Cutting of Benign Hyperkeratotic Lesion(s)?(-57) [...] instrumentation by the physician of record - 27758.? * Procedure Codes:?55069 DEBRI DE NAIL, 6 OR MORE, Modifiers: XS 68048 TRIM SKIN LESIONS, OVER 4, Modifiers: XS * Follow Up:?3 Months * Images: * Sign off status: Completed true * Provider:Elena Cortés DPM Date:?0 06/15/2024 Generated for Joaquín mcduffie/Neo/Darius on:?09/09/2024 06:43 AM EDT History and Physical Notes * [...]
--- OUTSIDE RECORDS SUMMARY | 2024-09-09 06:43 | XMS_ITS | Encounter Summary ---
Author Organization [facility] Address [address] [place] [address] Phone Care Team Providers Care Motion Study Engineer Name Role Phone Unavailable Primary Care Provider Unavailabl e Reason for Visit * Reason Comments Med Refill Encounter Details Date Type Department Care Team (Late st Contact Info) Description 01/30/2021 Refill [facility] [address] [place] [address] Avila Ceja MD [address] [facility] [address] [place] [address] Social History Tobacco Use Types [...]
--- OUTSIDE RECORDS SUMMARY | 2024-09-09 06:43 | XMS_ITS | Encounter Summary ---
Author Organization [facility] Address [address] [place] [address] Phone Care Team Providers Care Manager Of Compensation Name Role Phone Unavailable Primary Care Provider Unavailabl e Reason for Visit * Reason Comments Med Refill Encounter Details Date Type Department Care Team (Late st Contact Info) Description 09/01/2020 Refill [facility] [address] [place] [address] Avila Ceja MD [address] [facility] [address] [place] [address] Social History Tobacco Use Types [...]
--- OUTSIDE RECORDS SUMMARY | 2024-09-09 06:43 | XMS_ITS | Encounter Summary ---
Author Organization [facility] Address [address] [place] [address] Phone Care Team Providers Care Mortgage Loan Officer Name Role Phone Unavailable Primary Care Provider Unavailabl e Reason for Visit * Reason Comments Med Refill Encounter Details Date Type Department Care Team (Late st Contact Info) Description 02/26/2021 Refill [facility] [address] [place] [address] Avila Ceja MD [address] [facility] [address] [place] [address] Social History Tobacco Use Types [...]
--- OUTSIDE RECORDS SUMMARY | 2024-09-09 06:43 | XMS_ITS | Encounter Summary ---
Author Organization [facility] Address [address] [place] [address] Phone Care Team Providers Care Loftsman Name Role Phone Unavailable Primary Care Provider Unavailabl e Reason for Visit * Reason Comments Med Refill Encounter Details Date Type Department Care Team (Late st Contact Info) Description 08/17/2024 Refill [facility] [address] [place] [address] Nino Gan MD [address] [facility] [place] [facility] [address] [place] [address] Social History Tobacco Use Types [...]
[2024-09-09 11:11] LABS: MANUAL DIFF FLAG NO
[2024-09-09 11:26] LABS: Basophils Absolute Auto 0.1 X10*3/uL (0.0-0.2); Eosinophils Absolute Auto 0.3 X10*3/uL (0.0-0.4); Eosinophils Percent Auto 3.3 % (0-4); Hematocrit 42.5 % (42.0-52.0); Hemoglobin 14.2 g/dl (14.0-18.0); Imm Gran Abs Auto 0.02 X10*3/uL (0.00-0.03); Imm Gran Pct Auto 0.2 % (0.0-0.4); Lymphocytes Absolute Auto 2.2 X10*3/uL (1.2-4.9); Lymphocytes Percent Auto 26.7 % (20-40); Mean Corpuscular HGB Conc 33.4 g/dl (31.0-36.0); Mean Corpuscular Hemoglobin 30.9 pg (27.0-33.0); Mean Corpuscular Volume 92.4 fL (80.0-98.0); Mean Platelet Volume 10.5 fL (9.4-12.4); Monocytes Absolute Auto 0.9 X10*3/uL (0.1-1.2); Monocytes Percent Auto 11.4 % (2-11); Neutrophils Absolute Auto 4.6 x10*3/uL (2.0-8.3); Neutrophils Percent Auto 57.4 % (45-73); Platelet Count 212 X10*3/uL (160-400); Red Cell Distribution Width 13.2 % (11.0-16.0); White Blood Count 8.1 X10*3/uL (4.8-10.8)
[2024-09-09 12:02] LABS: Alanine Aminotransferase 29 U/L (0-40); Albumin Level 3.7 g/dL (3.5-5.0); Alkaline Phosphatase 74 U/L (39-117); Anion Gap 12 (12-20); Aspartate Amino Transferase 44 U/L (5-37); Bilirubin Total 0.6 mg/dL (0.0-1.0); Blood Urea Nitrogen 19 mg/dL (9-16); Carbon Dioxide 24 mmol/L (22-29); Chloride 107 mmol/L (96-108); Cholesterol 99 mg/dL (<200); Estimated Glomerular Filt Rate > 60; Glucose Fasting 121 mg/dL (60-99); HDL Cholesterol 46 mg/dL (>40); LDL Cholesterol Calculated 33 mg/dL (<100); Potassium 3.1 mmol/L (3.3-5.1); Sodium 140 mmol/L (135-145); Triglycerides 104 mg/dL (<150); Uric Acid 5.2 mg/dL (3.4-7.0)
== END 2024-09-09 06:41 | disposition home or self-care (01) ==
LOC: HO.HMGCLDS 06:40
PROVIDERS: PCP Internal Medicine; Visit Provider Internal Medicine
DX: Z13.220 Encounter for screening for lipoid disorders (principal); Z13.0 Encounter for screening for diseases of the blood and blood-forming organs and certain disorders involving the immune mechanism; Z13.9 Encounter for screening, unspecified; M10.9 Gout, unspecified
CPT/HCPCS: 36415; 80053; 80061; 84550; 85025

== ENCOUNTER 2024-09-12 12:56 | Outpatient (AMB) | payer MEDICARE, SELFPAY ==
[2024-09-12 13:11] VITALS: BP 150/72; BMI 28.4
--- NOTE | 2024-09-12 13:11 | A.OFFPC_ITS ---
Vital Signs 09/12/24 13:11 09/12/24 13:52 Height 5 ft 11 in Weight 204 lb BMI 28.4 BP 150/72 H 138/72 Blood Pressure Location Lt brachial Lt brachial Position Sitting Sitting Intake Visit Reasons: Transfer of Care from Dr. Rivera/ Follow Up Record Tester Required: No Accompanied by: Self / Same As Patient Allergies No Known Allergies [No Known Allergies*] Allergy (Verified 09/12/24 13:31) Medication List - Last Reconciled 09/12/24 by Colette Leyva MD allopurinol 300 mg PO DAILY amlodipine 10 mg PO DAILY aspirin (Adult Low Dose Aspirin) 81 mg PO DAILY atorvastatin 80 mg PO DAILY fenofibrate 54 mg PO DAILY 90 days furosemide 20 mg PO DAILY losartan 50 mg PO DAILY metoprolol tartrate 50 mg PO BID 90 days tamsulosin 0.4 mg PO BEDTIME 90 days vitamin B complex (B Complex-Vitamin B12 tablet) 1 tab PO DAILY Tobacco use date assessed: 05/18/24 Fall risk assessment: No Falls in past year Last assessed Fall Risk: 09/12/24 Dental Screening Dental Screen Date: 09/12/24 Did you have a dental visit in the last 12 months?: Yes Did you have a dental problem in the last 6 months where you did not have access to dental care?: No Was dental information given to patient?: Patient has dentist HPI HPI Comments History of Present Illness Details The patient is a 74-year-old male presenting for follow-up on her chronic conditions. Within his medical history, essential hypertension is consistently managed with Amlodipine and Losartan. The patient mentions a history suggestive of white coat syndrome, as evidenced by variable blood pressure recordings between clinical visits and home measurements. He is being treated for gout with Allopurinol and reports no recent flare-ups. Hyperlipidemia is actively managed through Atorvastatin and Fenofibrate, with previously recorded cholesterol and triglyceride levels within target ranges. The patient is also monitored for prediabetes, evidenced by unchanged elevated fasting glucose levels, but he is asymptomatic. Recent labs revealed mild hypokalemia, corresponding with an episode of diarrhea attributed to possible food poisoning. Liver function tests show mildly elevated enzymes, which could relate to his alcohol usage but require regular monitoring. [facility] Medical History (Updated 09/12/24 @ 13:44 by Colette Leyva MD) Atherosclerotic cardiovascular disease Prolonged QT interval Mixed hyperlipidemia History of colonic polyps Nephrolithiasis Flank pain Hypertension Surgical History Hx of colonoscopy Family History Father No problems noted. 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 1. Little interest or pleasure in doing things: not at all 2. Feeling down, depressed, or hopeless: not at all 3. Trouble falling or staying asleep, or sleeping too much: not at all 4. Feeling tired or having little energy: not at all 5. Poor appetite or overeating: not at all 6. Feeling bad about yourself - or that you are a failure or have let yourself or your family down: not at all 7. Trouble concentrating on things, such as reading the newspaper or watching television: not at all 8. Moving or speaking so slowly that other people could have noticed. Or the opposite - being so fidgety or restless that you have been moving around a lot more than usual: not at all 9. Thoughts that you would be better off or of hurting yourself in some way: not at all Total score: 0 Depression Screening Interpretation: Negative Depression Screening Done: Yes 91689 - PHQ-9 Billing: Yes Source: Developed by Drs. Fam Alba, Lisa Gonzalez, Suraj Llanos and colleagues, with an educational hannah from [employer]. Thrive Questionnaire Date Thrive assessed: 05/18/24 I am a: Patient What is your living situation today?: I have a steady place to live Within the past 12 months, did the food you bought not last and you didn't have the money to get more?: Never true Within the past 12 months, did you worry whether your food would run out before you got money to buy more?: Never true Do you have trouble paying for medicines?: No Do you have trouble getting transportation to medical appointments?: No Do you have trouble paying your heating and electricity bill?: No Do you have trouble taking care of your child, family member or friend?: No Do you have trouble with day-to-day activities such as bathing, preparing meals, shopping, managing finances, etc.?: No Are you currently unemployed and looking for a job?: No Are you interested in more education?: No Please select the resources that you would like help with: None Currently or been in a relationship where the following occur: No concerns reported THRIVE Score: 0 AUDIT C Alcohol Use Questionnaire (AUDIT-C) 1. How often do you have a drink containing alcohol?: 2-3 times a week 2. How many drinks containing alcohol do you have on a typical day when you are drinking?: 1 or 2 3. How often do you have six or more drinks on one occasion?: Never Total Score: 3 RAQUEL-7 AMB Questionnaire RAQUEL-7 Date RAQUEL - 7 assessed: 09/12/24 Feeling nervous, anxious, or on edge: 0 = Not at all Not being able to stop or control worryin = Not at all Worrying too much about different things: 0 = Not at all Trouble relaxin = Not at all Being so restless that it is hard to sit still: 0 = Not at all Becoming easily annoyed or irritable: 0 = Not at all Feeling afraid as if something awful might happen: 0 = Not at all Total RAQUEL-7 score (0-4 normal; 5-9 mild; 10-14 moderate; 15-21 severe): 0 Source: Developed by Drs. Fam Alba, Lisa Gonzalez, Suraj Llanos and colleagues, with an educational hannah from [employer]. RAQUEL-7 Assessment Billing RAQUEL-7 Assessment Tool: RAQUEL-7 Assessment 64835 Review of Systems Const All systems reviewed & are unremarkable except as noted in HPI and below Card Denies chest pain at rest, Denies chest pain with activity, Denies edema, Denies irregular heart rhythm, Denies claudication, Denies dyspnea, Denies dyspnea on exertion, Denies orthopnea, Denies paroxysmal nocturnal dyspnea and Denies slow heart rate Resp Denies cough, Denies dyspnea and Denies dyspnea on exertion Physical exam (Primary Care) Vital Signs: Last Vital Signs BP 150/72 H 09/12/24 13:11 BMI result Body Mass Index 28.4 Tobacco/Smoking Status: Tobacco use Status Tobacco use date assessed 05/18/24 09/12/24 13:16 Patient Tobacco Use Status Former Tobacco user 09/12/24 13:16 Tobacco use type Cigarette 09/12/24 13:16 e-Cigarette/Vaping Use Never Used 09/12/24 13:16 PHQ-9: PHQ-9 Score PHQ-9: Total score 0 09/12/24 13:38 Depression Screening Interpretation: Negative Thrive Assessment: Date of Thrive Assessment Date Thrive assessed 05/18/24 09/12/24 13:16 Currently or been in a relationship where the following occur: No concerns reported Resp Effort & Inspection: normal respiratory effort Auscultation: clear to auscultation bilaterally Cardio Jugular venous distension: no JVD Rate: regular rate Rhythm: regular rhythm Heart sounds: S1 normal heart sound present and S2 normal heart sound present Extrem General: Yes full ROM Coding Level of Care Code Est Pt Level 4 (94771) Complex EM visit Add On G2211 Diagnoses Essential hypertension I10 Gout M10.9 Impaired glucose tolerance R73.02 Mixed hyperlipidemia E78.2 Additional Codes RAQUEL-7 Assessment Billing - RAQUEL-7 Assessment Tool: RAQUEL-7 Assessment 55128 ([id number]) PHQ-9 - 86673 - PHQ-9 Billing: Yes ([id number]) Time Spent (min) 22 Assessment & Plan Assessment & Plan (1) Essential hypertension: Code(s): I10 - Essential (primary) hypertension Category: Medical (2) Gout: Code(s): M10.9 - Gout, unspecified Category: Medical (3) Impaired glucose tolerance: Code(s): R73.02 - Impaired glucose tolerance (oral) Category: Medical (4) Mixed hyperlipidemia: Code(s): E78.2 - Mixed hyperlipidemia Category: Medical Plan I recommend maintaining the established antihypertensive regimen while continuing to monitor for white coat syndrome through regular home blood pressure assessments. The current management plan for gout with Allopurinol should continue, and no flare-up is reported. Continue the existing treatment regimen with Atorvastatin and Fenofibrate, as lipid levels are well-controlled. I advise checking liver enzymes regularly and monitoring for any adverse changes. For prediabetes management, the patient should remain vigilant for any diabetic symptoms and follow a plan for regular fasting glucose assessments. Finally, due to recent hypokalemia, the patient is encouraged to focus on hydration and nutrient intake, with a repeat evaluation of potassium levels at the next visit if possible. Patient was informed and verbally consented to the use of an ambient scribe for clinic note documentation during this visit. I discussed with the patient the various aspects of his conditions and treatment plans. For essential hypertension, I emphasized the importance of continued medication use and home blood pressure monitoring to assess for white coat syndrome. We reviewed the potential for alcohol or Tylenol contributing to mildly elevated liver enzymes, with plans for regular liver function monitoring. Awareness of prediabetes was highlighted, and the patient was advised on recognizing symptoms that might signal progression to diabetes. I also addressed his recent hypokalemia, advising on increasing dietary potassium if symptoms recurred. Follow-up regimen options were discussed, and the patient prefers visits every four months. Orders: Orders Lipid Panel 5 Months E78.5 - Hyperlipidemia, unspecified Comprehensive [place]. Panel Fast 5 Months R73.02 - Impaired glucose tolerance (oral) Uric Acid 5 Months M10.9 - Gout, unspecified Patient Instructions: - Continue current medications as prescribed for hypertension, gout, and hyperlipidemia. - Monitor blood pressure regularly at home and note any significant changes. - Be aware of symptoms of diabetes, such as increased thirst or frequent urination. - Increase dietary potassium intake, especially following any gastrointestinal d isturbances. - Limit alcohol consumption and monitor any adverse reactions or symptoms. - Follow up in four to six months, or sooner if symptoms develop.
[2024-09-12 13:52] VITALS: BP 138/72
--- OUTSIDE RECORDS SUMMARY | 2024-09-12 14:51 | XMS_ITS | Patient Health Record ---
Author [facility] Address [address] [place] [address] Care Team Providers Care Inside Sales Director Name Role Phone Sigifredo Rivera MD Primary Care Provider Katelynn Lebron Unavailable [phone] GarzonAlexisSolitario Unavailable [phone] Allergies No Known Allergies Reason For Referral [...] Bilateral atherosclerosis of arteries of lower limbs ([id number] ) Atherosclerosis of [place] artery of both lower extremities, with unspecified presence of clinical manifestation (I70.203) Active confirmed Q7(A), Q8(2B), Q9(1B,2 C) Vital Signs Blood pressure diastolic 78 mm Hg 06/15/2024 Height 7rv83jw in 06/15/2024 Blood pressure systolic 132 mm Hg 06/15/2024 Weight 200 lbs 06/15/2024 BMI 27.89 kg/m2 06/15/2024 Procedures Procedure Date Ordered Date Performed Result Body Sit e 05635-QFBSNRO NAIL, 6 OR MORE 06/15/2024 N/A 21887-FTHC SKIN LESIONS, OVER 4 06/15/2024 N/A Encounters Encounter Location Date Provider Diagnosis [address] [address] 10/13/2023 Solitario Garzon Pain in left foot M79.672 ; Metatarsalgia, left foot M77.42 ; Unspecified atherosclerosis of [place] arteries of extremities, bilateral legs I70.203 ; 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 and Unspecified atherosclerosis of [place] arteries of extremities, bilateral legs I70.[address] [address] 01/13/2024 Solitario Garzon Pain in left foot M79.672 ; Metatarsalgia, left foot M77.42 ; Unspecified atherosclerosis of [place] arteries of extremities, bilateral legs I70.203 ; 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 and Unspecified atherosclerosis of [place] arteries of extremities, bilateral legs I70.[address] [address] 06/15/2024 Katelynn Cortés Atherosclerosis of [place] artery of both lower extremities, with unspecified presence of clinical manifestation I70.203 ; Tinea unguium B35.1 ; Pain in right toe(s) M79.674 and Pain in left toe(s) M79.[address] [address] 04/19/2024 Katelynn Cortés Assessments Encounter Date Diagnosis (ICD Code) Assessment Notes Treatment Notes Treatment Clinical Notes Section Notes 10/13/2023 Pain in left foot (ICD-10 - M79.672) 10/13/2023 Metatarsalgia, left foot (ICD-10 - M77.42) 01/13/2024 Pain in left foot (ICD-10 - M79.672) 06/15/2024 Atherosclerosis of [place] artery of both lower extremities, with unspecified presence of clinical manifestation (ICD-10 - I70.203) Q7(A), Q8(2B), Q9(1B,2C) 06/15/2024 Tinea unguium (ICD-10 - B35.1) 01/13/2024 Metatarsalgia, left foot (ICD-10 - M77.42) 10/13/2023 Unspecified atherosclerosis of [place] arteries of extremities, bilateral legs (ICD-10 - I70.203) 01/13/2024 Unspecified atherosclerosis of [place] arteries of extremities, bilateral legs (ICD-10 - I70.203) 06/15/2024 Pain in right toe(s) (ICD-10 - M79.674) 06/15/2024 Pain in left toe(s) (ICD-10 - M79.675) 10/13/2023 Sensory neuron disease (ICD-10 - G54.9) 01/13/2024 Sensory neuron disease (ICD-10 - G54.9) 10/13/2023 Unspecified atherosclerosis of [place] arteries of extremities, bilateral legs (ICD-10 - I70.203) 01/13/2024 Unspecified atherosclerosis of [place] arteries of extremities, bilateral legs (ICD-10 - I70.203) Plan Of Treatment Pending Test Test Name Order Date X ray : Foot, left 3V 04/01/2023 20710-JTOCDTK NAIL, 6 OR MORE 06/15/2024 53132-ZVHU SKIN LESIONS, OVER 4 06/15/19 25 95121-WWBJ SKIN LESIONS, 2 TO 4 07/08/19 24 Next Appt Details Provider Name:Katelynn roa, 10/11/2024 11:15:00 AM, [address] [facility], [place], [address], Insurance Providers Payer Name Payer Address Payer Phone Subscriber Number Group Number Insured Name Patient Relationship to Insured Coverage Start Date Coverage End Date Medicare National [employer] [address] [place] [address] [id number] Davion Frank Self - patient is the insured [employer] [facility] [address] [place] [address] [id number] Davion Frank Self - patient is the insured Medical (General) History Medical History History ICD Code Back,Hip,and Knee pain CAD (Cholesterol) High blood pressure Numbness Measles Chicken pox Gout Surgical History Surgery Date(Month/Year)
--- OUTSIDE RECORDS SUMMARY | 2024-09-12 14:51 | XMS_ITS | Encounter Summary ---
Author Organization [facility] Address [address] [place] [address] Phone Care Team Providers Care Culinary Worker Name Role Phone Unavailable Primary Care Provider Unavailabl e Reason for Visit * Reason Comments Med Refill Encounter Details Date Type Department Care Team (Late st Contact Info) Description 09/01/2020 Refill [facility] [address] [place] [address] Avila Ceja MD [address] [facility] [address] [place] [address] Social History Tobacco Use Types [...]
--- OUTSIDE RECORDS SUMMARY | 2024-09-12 14:51 | XMS_ITS | Encounter Summary ---
Author Organization [facility] Address [address] [place] [address] Phone Care Team Providers Care Decorating Consultant Name Role Phone Unavailable Primary Care Provider Unavailabl e Reason for Visit * Reason Comments Med Refill Encounter Details Date Type Department Care Team (Late st Contact Info) Description 09/23/2020 Refill [facility] [address] [place] [address] Avila Ceja MD [address] [facility] [address] [place] [address] Social History Tobacco Use Types [...]
--- OUTSIDE RECORDS SUMMARY | 2024-09-12 14:51 | XMS_ITS | Encounter Summary ---
Author Organization [facility] Address [address] [place] [address] Phone Care Team Providers Care Mid Level Developer Name Role Phone Unavailable Primary Care Provider Unavailabl e Reason for Visit * Reason Comments Med Refill Encounter Details Date Type Department Care Team (Late st Contact Info) Description 08/17/2024 Refill [facility] [address] [place] [address] Nino Gan MD [address] [facility] [address] [place] [address] Social History Tobacco Use Types [...]
--- OUTSIDE RECORDS SUMMARY | 2024-09-12 14:51 | XMS_ITS ---
Author Organization [facility] Address [address] [place] [address] Care Team Providers Care Tax Collector Name Role Phone Sigifredo Rivera MD Primary Care Provider Katelynn Lebron [phone] REASON FOR VISIT rs aoot 04/20/24 Encounters Encounter Location Date Provider Diagnosis [address] [address] 04/19/2024 Katelynn Cortés Plan Of Treatment Next Appt Details Provider Name:Katelynn roa, 10/11/2024 11:15:00 AM, [address] [place] [address], [phone], Progress Notes * Davion FRANK WDOB: [birth year] (73 yo M)Acc No.[id number]:04/19/2024 Patient:?Davion FRANK :1950???Age:73 Y???Sex:Male Address:[address] [place] [address], [address] * true * Date:? Generated for Printi reta/Adamg/eTransmitting on:?09/12/2024 02:50 PM EDT
--- OUTSIDE RECORDS SUMMARY | 2024-09-12 14:51 | XMS_ITS | Encounter Summary ---
Author Organization [facility] Address [address] [place] [address] Phone Care Team Providers Care Brake Operator Heavy Duty Name Role Phone Unavailable Primary Care Provider Unavailabl e Reason for Visit * Reason Comments Med Refill Encounter Details Date Type Department Care Team (Late st Contact Info) Description 01/30/2021 Refill [facility] [address] [place] [address] Avila Ceja MD [address] [facility] [address] [place] [address] Social History Tobacco Use Types [...]
--- OUTSIDE RECORDS SUMMARY | 2024-09-12 14:51 | XMS_ITS | Clinical Summary ---
Author Organization [facility] Address [address] [place] [address] Care Team Providers Care Motor Generator Set Operator Name Role Phone Unavailable Primary Care Provider [...] [facility] [address] [place] [address] Nino Gan MD 08/17/2024 Refill [facility] [address] [place] [address] Nino Gan MD from Last [...] patient's age to complete this topic Insurance [facility] Medicare [facility] Medicare
--- OUTSIDE RECORDS SUMMARY | 2024-09-12 14:51 | XMS_ITS | Encounter Summary ---
Author Organization [facility] Address [address] [place] [address] Phone Care Team Providers Care Instructional Facilitator Name Role Phone Unavailable Primary Care Provider Unavailabl e Reason for Visit * Reason Comments Med Refill Encounter Details Date Type Department Care Team (Late st Contact Info) Description 02/26/2021 Refill [facility] [address] [place] [address] Avila Ceja MD [address] [facility] [address] [place] [address] Social History Tobacco Use Types [...]
--- OUTSIDE RECORDS SUMMARY | 2024-09-12 14:51 | XMS_ITS ---
Author Organization [facility] Address [address] [place] [address] Care Team Providers Care Executive Assistant To General Counsel Name Role Phone Sigifredo Rivera MD Primary Care Provider Katelynn Lebron [phone] Encounters Encounter Location Date Provider Diagnosis [address] [address] 04/20/2024 Katelynn Cortés Plan Of Treatment Next Appt Details Provider Name:Katelynn roa, 10/11/2024 11:15:00 AM, [address] [place] [address], [phone], Progress Notes * Davion FRANK WDOB: [birth year] (74 yo M)Acc No.[id number]:04/20/2024 Progress Note Patient:?Davion FRANK Provider:?Katelynn Cortés DPM :1950???Age:73 Y???Sex:Male Jean e:04/20/2024 Address:[address] [place] [phone] Pcp:Sigifredo Rivera MD Subjective: * Chief Complaints: [...] DPM Date:?1 06/21/2023 Generated for Joaquín mcduffie/Neo/Darius on:?09/12/2024 02:51 PM EDT
--- OUTSIDE RECORDS SUMMARY | 2024-09-12 14:51 | XMS_ITS ---
Author Organization [facility] Address [address] [place] [address] Care Team Providers Care Bridge Operator Slip Name Role Phone Sigifredo Rivera MD Primary Care Provider Katelynn Lebron Unavailable [phone] Allergies No Known Allergies REASON FOR VISIT [...] Bilateral atherosclerosis of arteries of lower limbs ([id number] ) Atherosclerosis of [place] artery of both lower extremities, with unspecified presence of clinical manifestation (I70.203) Active confirmed Q7(A), Q8(2B), Q9(1B,2 C) Vital Signs Height 4vb33wl in 06/15/2024 Weight 200 lbs 06/15/2024 BMI 27.89 kg/m2 06/15/2024 Blood pressure systolic 132 mm Hg 06/15/19 Blood pressure diastolic 78 mm Hg 025 Procedures Procedure Date Ordered Date Performed Result Body Sit e 55262-NVNUFFR NAIL, 6 OR MORE 06/15/2024 N/A 74606-BZML SKIN LESIONS, OVER 4 06/15/2024 N/A Encounters Encounter Location Date Provider Diagnosis [facility] [address] [place] [address] 06/15/2024 Katelynn Cortés Atherosclerosis of [place] artery of both lower extremities, with unspecified presence of clinical manifestation I70.203 ; Tinea unguium B35.1 ; Pain in right toe(s) M79.674 and Pain in left toe(s) M79.675 Assessments Encounter Date Diagnosis (ICD Code) Assessment Notes Treatment Notes Treatment Clinical Notes Section Notes 06/15/2024 Atherosclerosis of [place] artery of both lower extremities, with unspecified presence of clinical manifestation (ICD-10 - I70.203) Q7(A), Q8(2B), Q9(1B,2C) 06/15/2024 Tinea unguium (ICD-10 - B35.1) 06/15/2024 Pain in right toe(s) (ICD-10 - M79.674) 06/15/2024 Pain in left toe(s) (ICD-10 - M79.675) Plan Of Treatment Pending Test Test Name Order Date 13937-VNFJNNT NAIL, 6 OR MORE 06/15/2024 82671-ONKG SKIN LESIONS, OVER 4 06/15/19 25 Next Appt Details Follow Up: 3 Months, Reason: Provider Name:Katelynn roa, 10/11/2024 11:15:00 AM, [address] [place], [address], Procedure Notes * Category Sub-Category Detail Notes [...] use of a nail nipper and/or dremel-type profile grinder, to a more viable healthy nail [...] to maintain effectiveness in symptomatic relief - 58966 Keratoma Treatment Parring or Cutting o f [...] instrumentation by the physician of record - 85775 Progress Notes * Davion FRANK WDOB: [birth year] (74 yo M)Acc No.[id number]:06/15/2024 Progress Note Patient:?BHUMI Davion W Provider:?Katelynn Cortés DPM :1950???Age:74 Y???Sex:Male Jean e:06/15/2024 Address:[address] [place] [phone] Pcp:Sigifredo Rivera MD Subjective: * Chief Complaints: [...] patient * Allergies:?N.K.D.A.yes[Aller gies Verified] Objective: * Vitals:?Ht:8at02td, Wt:200, BMI:27.89, Shoe size:10W, BP:132/78mm Hg, Ht-cm: [...] and time.? Assessment: * Assessment: 1.?Atherosclerosis of [place] artery of both lower extremities, with unspecified presence of clinical manifestation - I70.203 (Primary)???Notes :Q7(A), Q8(2B), Q9(1B,2C)???2.?Tinea unguium - B35.1???3.?Pain in right toe(s) - M79.674???4.?Pain in left toe(s) - M79.675??? Plan: * Treatment: 2.?Tinea unguium?Procedure: 63661-BORXLUG NAIL, 6 OR MORE * Procedures:?Debride Nail [...] use of a nail nipper and/or dremel-type profile grinder, to a more viable healthy nail [...] to maintain effectiveness in symptomatic relief - 13543.?Keratoma Treatment:?Parring or Cutting of Benign Hyperkeratotic Lesion(s)?(-57) [...] instrumentation by the physician of record - 82128.? * Procedure Codes:?74769 DEBRI DE NAIL, 6 OR MORE, Modifiers: XS 57504 TRIM SKIN LESIONS, OVER 4, Modifiers: XS * Follow Up:?3 Months * Images: * Sign off status: Completed true * Provider:Elena Cortés DPM Date:?0 06/15/2024 Generated for Joaquín mcduffie/Neo/Darius on:?09/12/2024 02:51 PM EDT History and Physical Notes * HPI [...]
--- OUTSIDE RECORDS SUMMARY | 2024-09-12 14:51 | XMS_ITS | Encounter Summary ---
Author Organization [facility] Address [address] [place] [address] Phone Care Team Providers Care Mold Preparer Name Role Phone Unavailable Primary Care Provider Unavailabl e Reason for Visit * Reason Comments Med Refill Encounter Details Date Type Department Care Team (Late st Contact Info) Description 04/28/2021 Refill [facility] [address] [place] [address] Avila Ceja MD [address] [facility] [address] [place] [address] Social History Tobacco Use Types [...]
== END 2024-09-12 13:44 | disposition home or self-care (01) ==
LOC: HO.HMCH 12:57
PROVIDERS: PCP Internal Medicine; Visit Provider Internal Medicine
DX: I10 Essential (primary) hypertension (principal); M10.9 Gout, unspecified; R73.02 Impaired glucose tolerance (oral); E78.2 Mixed hyperlipidemia

== ENCOUNTER → 2024-09-12 12:56 | Outpatient (BNVA) | payer MEDICARE, SELFPAY | PROVIDERS: PCP Internal Medicine; Visit Provider Internal Medicine | DX: I10 Essential (primary) hypertension (principal); M10.9 Gout, unspecified; R73.02 Impaired glucose tolerance (oral); E78.2 Mixed hyperlipidemia | CPT/HCPCS: 96127; 99212 ==

== ENCOUNTER 2025-03-01 12:08 | Outpatient (AMB) | payer MEDICARE, SELFPAY ==
[2025-03-01 12:48] VITALS: BP 140/72; PULSE 99; BMI 29.8
--- NOTE | 2025-03-01 12:48 | A.OFFVIS_ITS ---
Vital Signs 03/01/25 12:48 Height 5 ft 11 in Weight 213 lb 6.519 oz BMI 29.8 BP 140/72 H Blood Pressure Location Rt brachial Position Sitting Pulse 99 Pulse Source Pulse Oximeter Intake Visit Reasons: 6 mth f/up Fur Mixer: Fur Mixer Present Allergies No Known Allergies (No Known Allergies*) Allergy (Verified 03/01/25 12:50) Medication List - Last Reconciled 03/01/25 by Jb Barrios MD allopurinol 300 mg PO DAILY amlodipine 10 mg PO DAILY aspirin (Adult Low Dose Aspirin) 81 mg PO DAILY Held on 06/11/20. Instructions: Resume on 06/18/20. removal multiple polyps atorvastatin 80 mg PO DAILY fenofibrate 54 mg PO DAILY furosemide 20 mg PO DAILY losartan 50 mg PO DAILY metoprolol tartrate 50 mg PO BID tamsulosin 0.4 mg PO BEDTIME 90 days vitamin B complex (B Complex-Vitamin B12 tablet) 1 tab PO DAILY HPI Comments Details: Davion returns for hypertension as well as coronary artery disease. Overall, he states that he is doing good. No complaints like angina or shortness of breath or in fact anything cardiac sounding. He is getting along fine. Blood pressure has always been slightly high here but he believes it is because of white coat hypertension. Home blood pressure is slightly lower but they are still in the 130s or so. Hence he might still have mild hypertension. [facility] Medical History Atherosclerotic cardiovascular disease Prolonged QT interval Mixed hyperlipidemia History of colonic polyps Nephrolithiasis Flank pain Hypertension Surgical History Hx of colonoscopy Family History Father No problems noted. 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 Current occupational exposures/hazards: No Cognitive needs: No Hearing needs: No Vision needs: Yes (reading glasses) Review of Systems ENT Reports dizziness Card Denies chest pain, Denies chest pain at rest, Denies chest pain with activity, Denies rapid heart rate, Denies pedal edema, Denies edema, Denies leg edema, Denies lightheadedness, Denies palpitations, Denies dyspnea, Denies dyspnea on exertion and Denies orthopnea Resp Denies cough, Denies dyspnea and Denies dyspnea on exertion GI Denies hematochezia and Denies change in stool character Musc Denies abnormal gait, Reports limited range of motion, Reports muscle cramps, Denies muscle weakness, Denies numbness, Denies radiating pain into limb, Denies stiffness and Denies tingling Neuro Denies abnormal gait, Reports dizziness, Denies numbness and Denies tingling Endo Denies palpitations Physical Exam Vital Signs: Last Vital Signs Pulse 99 03/01/25 12:48 BP 140/72 H 03/01/25 12:48 BMI result Body Mass Index 29.8 Const General: comfortable and no acute distress Orientation/consciousness: patient oriented x3 HEENT Other: Unremarkable Head: Yes normal to inspection Neck Neck: Yes normal visual inspection Chest Chest palpation & inspection: normal inspection of the chest Resp Auscultation: clear to auscultation bilaterally Cardio Palpation: normal PMI Heart sounds: S1 normal heart sound present, S2 normal heart sound present, no gallops, no murmurs and no rubs GI Palpation (GI): Soft to palpation Back/Spine/Pelvis Other: unremarkable Skin General skin exam: no rashes or lesions noted Neuro General: patient oriented x3 Extrem General: Yes normal to inspection Psych Mental Status: mental status grossly normal Assessment & Plan Assessment & Plan (1) Atherosclerotic cardiovascular disease: Comment: follows w/[facility] Code(s): I25.10 - Atherosclerotic heart disease of [place] coronary artery without angina pectoris Category: Medical Plan: Coronary CTA 2022- Second diagonal with 50% stenosis. Mid LAD with heavy calcification, suspected <70% stenosis. Proximal to mid circumflex with likely < 60% stenosis. Second obtuse marginal with proximally < 70% stenosis. RCA with < 40% stenosis proximally; < 60% stenosis in the proximal/mid junction. Overall, diffuse CAD but no symptoms clinically. Aggressive risk factor modification. He needs to report herself any anginal symptoms and we have discussed this today. (2) Essential hypertension: Code(s): I10 - Essential (primary) hypertension Category: Medical Plan: Go up on metoprolol to 50 mg b.i.d.. Continue losartan/amlodipine. (3) Mixed hyperlipidemia: Code(s): E78.2 - Mixed hyperlipidemia Category: Medical Plan: Remains on statins and fenofibrate. LDL 33 mg/dL. Triglycerides 104 mg/dL. (4) Prolonged QT interval: Code(s): R94.31 - Abnormal electrocardiogram [ECG] [EKG] Category: Medical Plan: Has been a chronic finding in his EKGs. To avoid QT prolonging drugs in the future. Plan Discussion Notes During the visit, we discussed the patient's blood pressure management, emphasizing the importance of maintaining readings closer to 120/80 mmHg to prevent cardiovascular complications. We also reviewed his current medication regimen and considered simplifying it to improve adherence and control. Preventative care measures, including vaccinations, were also discussed, with a recommendation for the RSV vaccine if available for his age group. Patient was informed and verbally consented to the use of an ambient scribe for clinic note documentation during this visit. Medications: New metoprolol tartrate 50 mg PO BID 180 tabs 1RF 90 days Patient Instructions: - Monitor your blood pressure regularly and aim for readings closer to 120/80 mmHg. - Follow the updated metoprolol dosing schedule as discussed. Coding Level of Care Code Est Pt Level 4 (12395) Complex EM visit Add On G2211 Diagnoses Atherosclerotic cardiovascular disease I25.10 Essential hypertension I10 Mixed hyperlipidemia E78.2 Prolonged QT interval R94.31
== END 2025-03-01 13:13 | disposition home or self-care (01) ==
LOC: HO.HCS 12:09
PROVIDERS: PCP Internal Medicine; Visit Provider Internal Medicine
DX: I25.10 Atherosclerotic heart disease of native coronary artery without angina pectoris (principal); I10 Essential (primary) hypertension; E78.2 Mixed hyperlipidemia; R94.31 Abnormal electrocardiogram [ECG] [EKG]
CPT/HCPCS: 99214; G2211

== ENCOUNTER → 2025-03-01 12:08 | Outpatient (BNVA) | payer MEDICARE, SELFPAY | PROVIDERS: PCP Internal Medicine; Visit Provider Internal Medicine | DX: I25.10 Atherosclerotic heart disease of native coronary artery without angina pectoris (principal); I10 Essential (primary) hypertension; E78.2 Mixed hyperlipidemia; R94.31 Abnormal electrocardiogram [ECG] [EKG] | CPT/HCPCS: 99212 ==

== ENCOUNTER 2025-03-09 13:56 | Outpatient (REF) | payer MEDICARE, SELFPAY ==
--- OUTSIDE RECORDS SUMMARY | 2024-04-20 05:30 | XMS_ITS ---
Author Organization [facility] Address [address] [place] [address] Care Team Providers Care Commuter Pilot Name Role Phone Isaura SMALLS, Colette Primary Care Provider Unavail Katelynn Kasper [phone] Encounters Encounter Location Date Provider Diagnosis [address] [address] 04/20/2024 Katelynn Cortés Plan Of Treatment Next Appt Details Provider Name:Katelynn roa, 07/11/2025 11:00:00 AM, [address] [place] [address], [phone], Progress Notes * Davion FRANK WDOB: [birth year] (74 yo M)Acc No.[id number]:04/20/2024 Progress Note Patient: Allie DAN Davion Salamanca Provider: Sanna Cortés DPM :1950 A ge:73 Y S ex:Male Date:04/20/2024 Address:[address] [place] [phone] Pcp:Colette Delarosa MD Subjective: * Chief Complaints: [...] 1 06/21/2023 Generated for Joaquín mcduffie/Neo/Darius on: 1 03:58 PM EDT
--- OUTSIDE RECORDS SUMMARY | 2025-02-14 06:00 | XMS_ITS ---
Author Organization [facility] Address [address] [place] [address] Care Team Providers Care Fish Egg Packer Name Role Phone Isaura SMALLS, Colette Primary Care Provider Unavail Katelynn Kasper Unavailable [phone] Kaur Encounters Encounter Location Date Provider Diagnosis [address] [address] 02/14/2025 Katelynn Cortés Plan Of Treatment Next Appt Details Provider Name:Katelynn roa, 07/11/2025 11:00:00 AM, [address] [place] [address], [phone], Progress Notes * Davion FRANK WDOB: [birth year] (74 yo M)Acc No.[id number]:02/14/2025 Progress Note Patient: Allie DAN Davion Salamanca Provider: Sanna Cortés DPM :1950 A ge:74 Y S ex:Male Date:02/14/2025 Address:[address] [place] [phone] Pcp:Colette Delarosa MD Subjective: * Chief Complaints: [...] DPM Date: Generated for Joaquín mcduffie/Neo/Darius on: 03:58 PM EDT
--- OUTSIDE RECORDS SUMMARY | 2025-03-07 07:15 | XMS_ITS ---
Author Organization [facility] Address [address] [place] [address] Care Team Providers Care Carrot Grader Inspector Name Role Phone Isaura SMALLS, Colette Primary Care Provider Unavail Katelynn Kasper [phone] Encounters Encounter Location Date Provider Diagnosis [address] [address] 03/07/2025 Katelynn Cortés Plan Of Treatment Next Appt Details Provider Name:Katelynn roa, 07/11/2025 11:00:00 AM, [address] [place] [address], [phone], Progress Notes * Davion FRANK WDOB: [birth year] (74 yo M)Acc No.[id number]:03/07/2025 Progress Note Patient: Allie DAN Davion Salamanca Provider: Sanna Cortés DPM :1950 A ge:74 Y S ex:Male Date:03/07/2025 Address:[address] [place] [phone] Pcp:Colette Delarosa MD Subjective: * Chief Complaints: [...] Date: 1 Generated for Joaquín mcduffie/Neo/Darius on: 03:57 PM EDT
--- OUTSIDE RECORDS SUMMARY | 2025-03-08 11:30 | XMS_ITS ---
Author Organization [facility] Address [address] [place] [address] Care Team Providers Care Slab Puller Name Role Phone Isaura SMALLS, Colette Primary Care Provider Unavail able Katelynn Cortés Unavailable [phone] Allergies No Known Allergies REASON FOR VISIT At Risk Footcare, Painful Nail(s) aggravated by shoes and causing difficulty standing/walking. Medications Medication SIG (Take, Route, Frequency, Duration) Notes Start Date End Date Status Fenofibrate Active Atorvastatin Calcium Active Furosemide Active Allopurinol Active Metoprolol Succinate Active Atorvastatin Calcium 80 MG Oral; Duration: 90 Days Active Tamsulosin HCl 0.4 MG Oral; Duration: 30 Days Active Tamsulosin HCl Activ e amLODIPine Besylate Active Suhsant Aspirin Active Furosemide 20 MG Oral; Duration: 90 Days Active Allopurinol 300 MG Oral; Duration: 90 Days Active amLODIPine Besylate 10 MG Oral; Duration: 60 Days Active Metoprolol Tartrate 50 MG Oral; Duration: 90 Days Active Fenofibrate 54 MG Oral; Duration: 90 Days Active Sushant Aspirin EC Low Dose 81 MG 1 tablet Orally Once a day; Duration: 30 day(s) 03/10/2023 Active Losartan Potassium 50 MG 1 tablet Orally Once a day Active Vitamin B Complex - as directed Orally 03/10/2023 Active Social History Tobacco Use: Social History [...] ast year? No Points 0 Interpretation Negative Vital Signs Height [id number] in 03/08/2025 Weight 200 lbs 03/08/2025 BMI 27.89 kg/m2 03/08/2025 Blood pressure systolic 130 mm Hg 03/08/20 Blood pressure diastolic 65 mm Hg 025 Procedures Procedure Date Ordered Date Performed Result Body Sit e 55347-CBTRZEX NAIL, 6 OR MORE 03/08/2025 N/A 40102-QJGC SKIN LESIONS, OVER 4 03/08/2025 N/A Encounters Encounter Location Date Provider Diagnosis [facility] [place] [address] [place] [address] 03/08/2025 Katelynn Cortés Atherosclerosis of buckland artery of both lower extremities, with unspecified presence of clinical manifestation I70.203 ; Tinea unguium B35.1 ; Pain in right toe(s) M79.674 and Pain in left toe(s) M79.675 Assessments Encounter Date Diagnosis (ICD Code) Assessment Notes Treatment Notes Treatment Clinical Notes Section Notes 03/08/2025 Atherosclerosis of buckland artery of both lower extremities, with unspecified presence of clinical manifestation (ICD-10 - I70.203) Q7(A), Q8(2B), Q9(1B,2C) 03/08/2025 Tinea unguium (ICD-10 - B35.1) 03/08/2025 Pain in right toe(s) (ICD-10 - M79.674) 03/08/2025 Pain in left toe(s) (ICD-10 - M79.675) Plan Of Treatment Pending Test Test Name Order Date [id number] NAIL, 6 OR MORE 03/08/2025 38757-OEUT SKIN LESIONS, OVER 4 03/08/20 25 Next Appt Details Follow Up: 3 Months, Reason: Provider Name:Katelynn roa, 07/11/2025 11:00:00 AM, [address] [place] [address], [phone], Procedure Notes * Category Sub-Category Detail Notes [...] use of a nail nipper and/or dremel-type cutlery grinder, to a more viable healthy nail [...] to maintain effectiveness in symptomatic relief - 62198 Keratoma Treatment Parring or Cutting o f [...] instrumentation by the physician of record - 38289 Progress Notes * Davion FRANK WDOB: [birth year] (74 yo M)Acc No.[id number]:03/08/2025 Progress Note Patient: Davion WILSON W Provider: Sanna Cortés DPM :1950 A ge:74 Y S ex:Male Date:03/08/2025 Address:[address] [place], [place] [id number] Pcp:Colette Delarosa MD Subjective: * Chief Complaints: * A t Risk FootcarePainful Nail(s) aggravated by shoes and causing difficulty standing/walking. * HPI: A t Risk footcare: Pt States Last PCP Visit: D ate 0 09/14/2024 * ROS: G eneral/Constitutional: Nausea d enies, denies. V omiting d enies, denies.?Hunger Thirst d enies, denies. L oss appetite d enies, denies. C hills d enies, denies. F atigue d enies, denies. F ever d enies, denies. N ight Sweats denies, denies. U nexplained weight loss d enies, denies. U nexplained weight gain?denies, denies. H EENTM: Dentures d enies, denies. D izziness d enies, denies. G lasses/contacts d enies, denies. R etinopathy d enies, denies. B lurred/double vision d enies, denies. T MJ d enies, denies. D ischarge/drainage d enies, denies. I mplants d enies, denies. S ore throat d enies, denies. D ental implants?denies, denies. H aaron of hearing d enies, denies. D ifficulty chewing/swallowing/speaking d enies, denies. N ose bleeds d enies, denies. S ore mouth d enies, denies. R espiratory: On Oxygen d enies, denies. P neumonia/pleurisy d enies, denies. B ronchitis d enies, denies. E mphysema d enies, denies. C oughing?denies, denies. C ough blood d enies, denies. S hortness of breath d enies, denies. W heezing d enies, denies. C ardiovascular: Pacemaker d enies, denies. M DIVING BOARD ASSEMBLER d enies, denies.?WPW d enies, denies. C HF d enies, denies. H eart attack d enies, denies.?Septal defect d enies, denies. R apid beat d enies, denies. C hest pain d enies, denies. A trial Fib. d enies, denies. M urmur/Palpitations d enies, denies. G astrointestinal: Hemorrhoids d enies, denies. S tomach/Abdominal pain?denies, denies. D ark blood stool d enies, denies. I rritable bowel d enies, denies. C onstipation d enies, denies. D iarrhea d enies, denies. H ematology: Swelling d enies, denies. C lots d enies, denies.?Varicose Veins d enies, denies. B ruising d enies, denies. B leeding problem?denies, denies. G enitourinary: Blood urine d enies, denies. F requent/Painfu/urination/bladder control d enies, denies. K idney stones d enies, denies. I nfection (UTI)?denies, denies. N ephropathy d enies, denies. s ex trans dis (STD) d enies, denies. P rostate d enies, denies. M usculoskeletal: Hammertoes d enies, denies. B unions d enies, denies. B ack Pain d enies, denies. M uscle Cramps/ Resting d enies, denies. M uscle cramps / walking d enies, denies. G eneralized aches and pains d enies, denies. W eakness d enies, denies. I nteg.: Arrington d enies, denies. S cars d enies, denies. C orns/calluses d enies, denies. I ngrown nails d enies, denies. P ainful nails d enies, denies. O pen Sores d enies, denies. R ashes d enies, denies. ? N eurologic: Difficulty sleeping d enies, denies. B rain disorder?denies, denies. N umbness a dmits, admits. B alance trouble d enies, denies. C onfusion d enies, denies. F ainting/blackouts d enies, denies. T ingling a dmits, admits. T remors linden tanner, denies. * Medical History: * Surgical History: D enies Past Surgical History * Hospitalization/Major Diagno stic Procedure: D enies Past Hospitalization * Family History: M other: , diagnosed with Unspecified essential hypertension. F ather: , diagnosed with Unspecified essential hypertension, Unspecified heart disease. * Social History: T obacco Use: T obacco use other than smoking A re you an other tobacco user? N o Tobacco Control (Standard) T obacco use: N onsmoker A dditional Findings: Tobacco non-user C urrent nonsmoker D rugs/Alcohol: D rugs H ave you used drugs other than those for medical reasons in the past 12 months? N o M iscellaneous: C affeine: yes, frequency: , 1-2 cups per day. Children: no. Exercise: yes, golf. Marital status: . Occupation: Works Part-time. D rug/Alcohol: A ESTRADA-C (Standard) D id you have a drink containing alcohol in the past year? N o P oints 0 I nterpretation N egative * Medications: T akingLosartan Potassium 50 MG Tablet 1 tablet Orally [...] reviewed and reconciled with the patient * Allergies: N .K.D.A.yes[Allergies Verified] Objective: * Vitals: H t:5xe20pl, Wt:200, BMI:27.89, Shoe size:10W, BP:130/65mm Hg, Ht-cm: 180.34 cm, Wt-k.72 kg. * Examination: V ascular: DP PULSES (B): 0/4, B/L. PT PULSES (B): 0/4, B/L. CAPILLARY FILL TIME: delayed, all digits, B/L. TROPHIC CONDITION-TEXTURE/ELASTICITY/TURGOR/HAIR GROWTH (B):? decreased, fragile, thin, shiny skin, with sparse to absent hair growth, B/L. TEMPERTURE GRADIENT (C): decreased, cool to cool, proximal to distal, B/L. PIGMENTATION: b rawny, B/L. EDEMA (C): a bsent, B/L. CLAUDICATION (C): d enies, B/L. REST PAIN: d enies, B/L. PARESTHESIA (C): a bsent, B/L. BURNING (C): a bsent, B/L. N ails: NAILS are: E longated, overgrown, dystrophic, lytic, greater than 3mm thick, discolored and friable with crumbly malodorous subungual debris, with pain on palpation, TA, T1, T2, T3, T4, T5, T6, T7, T8, T9. D ermatologic: SKIN FINDINGS: S kin exam reveals Keratotic lesion(s) located at sub 1st MTH B/L, sub 5th MTH, Left, Plantar heels B/L. O rthopedic: MUSCLE STRENGTH: 5 /5 all groups in a symmetrical fashion, B/L. N eurological: SENSORY: N eurological exam reveals intact sensorium, pain sensation normal, vibration sensation intact, pinprick sensation is normal in the lower extremities, Pt denies, anesthesia, burning, paresthesia, tingling, B/L. G eneral Examination: GENERAL APPEARANCE: Curry rooneys a pleasant, alert, well nourished, well-developed, well hydrated individual, who demonstrates proper attention to hygiene/body habitus, and is in no acute distress, Pt serves as own historian for office visit today. ORIENTED: p erson, place, and time. Assessment: * Assessment: 1. A therosclerosis of buckland artery of both lower extremities, with unspecified presence of clinical manifestation - I70.203 (Primary) N otes :Q7(A), Q8(2B), Q9(1B,2C) 2 . T inea unguium - B35.1 3 . P ain in right toe(s) - M79.674 4 . P ain in left toe(s) - M79.675 Plan: * Treatment: 2. T inea unguium P rocedure: 51261-FFTPXIB NAIL, 6 OR MORE * Procedures: D ebride Nail 6-10: Nail debridement D ue to the clinical pathology outlined in the [...] the use of a nail nipper and/or dremel- type cutlery grinder, to a more viable healthy nail [...] to maintain effectiveness in symptomatic relief - 23234. K eratoma Treatment: Parring or Cutting of Benign Hyperkeratotic Lesion(s) ( -57) More than 4 Lesions - Due to [...] instrumentation by the physician of record - 59144. * Procedure Codes: 1 1721 DEBRIDE NAIL, 6 OR MORE, Modifiers: XS 21816 TRIM SKIN LESIONS, OVER 4, Modifiers: XS * Follow Up: 3 Months * Images: * Sign off status: Completed true * Provider: Sanna Cortés DPM Date: Generated for Joaquín mcduffie/Neo/Darius on: 03:58 PM EDT History and Physical Notes * HPI (History of Present Illness) Category Sub-Category Detail Notes Category Not es At Risk footcare Pt States Last PCP Visit: Date: Examination Category Sub-Category Detail Notes Category Not [...] crumbly malodorous subungual debris, with pain on palpation, TA, T1, T2, T3, T4, T5, T6, T7, T8, T9
--- NOTE | ~2025-03-09 | US_ITS ---
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 COMPARISON: Comparison is made with the prior examination dated 01/03/2023. FINDINGS: Right kidney: The right kidney measures 11.3 x 4.6 x 5.2 cm. Renal parenchymal echotexture and thickness are normal. There are no masses. There is no hydronephrosis or renal calculi. Left Kidney: The left kidney measures 11.6 x 5.6 x 4.7 cm. Renal parenchymal echotexture and thickness are normal. There is a 4.1 x 2.6 x 2.8 cm cyst in the interpolar region. There is no hydronephrosis or renal calculi. US/US renal BI IMPRESSION: 4.1 x 2.6 x 2.8 cm left renal cyst. Otherwise unremarkable renal ultrasound. Electronically signed by: Fam Wilson MD 03/09/2025 02:45 PM EDT
--- OUTSIDE RECORDS SUMMARY | 2025-03-09 15:58 | XMS_ITS | Patient Health Record ---
Author Organization [facility] Address [address] [place] [address] Care Team Providers Care Picker Name Role Phone Isaura SMALLS, Colette Primary Care Provider Unavail able Princess Cortésine Unavailable [phone] Allergies No Known Allergies Reason For Referral No Information Medications Medication SIG (Take, Route, Frequency, Duration) Notes Start Date End Date Status Tamsulosin HCl 0.4 MG Oral; Duration: 30 Days Active Tamsulosin HCl Activ e Atorvastatin Calcium 80 MG Oral; Duration: 90 Days Active Sushant Aspirin EC Low Dose 81 MG 1 tablet Orally Once a day; Duration: 30 day(s) 03/10/2023 Active Fenofibrate Active Furosemide 20 MG Oral; Duration: 90 Days Active Atorvastatin Calcium Active Losartan Potassium 50 MG 1 tablet Orally Once a day Active amLODIPine Besylate Active Vitamin B Complex - as directed Orally 03/10/2023 Active Sushant Aspirin Active Allopurinol 300 MG Oral; Duration: 90 Days Active Furosemide Active amLODIPine Besylate 10 MG Oral; Duration: 60 Days Active Metoprolol Tartrate 50 MG Oral; Duration: 90 Days Active Allopurinol Active Fenofibrate 54 MG Oral; Duration: 90 Days Active Metoprolol Succinate Active Immunizations Vaccine Route Administration Date Status Comme nts Influenza Unknown 02/17/2024 Administered Influenza Unknown 02/15/2025 Administered Social History Tobacco Use: Social History Observation [...] Bilateral atherosclerosis of arteries of lower limbs (disorder) ([id number] ) Atherosclerosis of [place] artery of both lower extremities, with unspecified presence of clinical manifestation (I70.203) Active confirmed Q7(A), Q8(2B), Q9(1B,2 C) Vital Signs Blood pressure diastolic 65 mm Hg 03/08/2025 Height 2ie34uh in 03/08/2025 Blood pressure systolic 130 mm Hg 03/08/2025 Weight 200 lbs 03/08/2025 BMI 27.89 kg/m2 03/08/2025 Procedures Procedure Date Ordered Date Performed Result Body Sit e 15421-QEUZDON NAIL, 6 OR MORE 06/15/2024 N/A 61673-OCUS SKIN LESIONS, OVER 4 06/15/2024 N/A 98734-DQZZUOW NAIL, 6 OR MORE 10/11/2024 N/A 56260-UIXA SKIN LESIONS, OVER 4 10/11/2024 N/A 37301-PEUKHWQ NAIL, 6 OR MORE 03/08/2025 N/A 44040-BAVR SKIN LESIONS, OVER 4 03/08/2025 N/A Encounters Encounter Location Date Provider Diagnosis [address] [address] 06/15/2024 Katelynn Cortés Atherosclerosis of [place] artery of both lower extremities, with unspecified presence of clinical manifestation I70.203 ; Tinea unguium B35.1 ; Pain in right toe(s) M79.674 and Pain in left toe(s) M79.[address] [address] 10/11/2024 Katelynn Cortés Atherosclerosis of [place] artery of both lower extremities, with unspecified presence of clinical manifestation I70.203 ; Tinea unguium B35.1 ; Pain in right toe(s) M79.674 and Pain in left toe(s) M79.[address] [address] 03/08/2025 Katelynn Cortés Atherosclerosis of [place] artery of both lower extremities, with unspecified presence of clinical manifestation I70.203 ; Tinea unguium B35.1 ; Pain in right toe(s) M79.674 and Pain in left toe(s) M79.675 [facility] [address] [address] 04/19/2024 Katelynn Cortés Assessments Encounter Date Diagnosis (ICD Code) Assessment Notes Treatment Notes Treatment Clinical Notes Section Notes 06/15/2024 Atherosclerosis of [place] artery of both lower extremities, with unspecified presence of clinical manifestation (ICD-10 - I70.203) Q7(A), Q8(2B), Q9(1B,2C) 10/11/2024 Atherosclerosis of [place] artery of both lower extremities, with unspecified presence of clinical manifestation (ICD-10 - I70.203) Q7(A), Q8(2B), Q9(1B,2C) 03/08/2025 Atherosclerosis of [place] artery of both lower extremities, with unspecified presence of clinical manifestation (ICD-10 - I70.203) Q7(A), Q8(2B), Q9(1B,2C) 03/08/2025 Tinea unguium (ICD-10 - B35.1) 10/11/2024 Tinea unguium (ICD-10 - B35.1) 06/15/2024 Tinea unguium (ICD-10 - B35.1) 06/15/2024 Pain in right toe(s) (ICD-10 - M79.674) 10/11/2024 Pain in right toe(s) (ICD-10 - M79.674) 03/08/2025 Pain in right toe(s) (ICD-10 - M79.674) 03/08/2025 Pain in left toe(s) (ICD-10 - M79.675) 06/15/2024 Pain in left toe(s) (ICD-10 - M79.675) 10/11/2024 Pain in left toe(s) (ICD-10 - M79.675) Plan Of Treatment Pending Test Test Name Order Date X ray : Foot, left 3V 04/01/2023 85690-YNJIWDP NAIL, 6 OR MORE 06/15/2024 77008-XKCRDPI NAIL, 6 OR MORE 10/11/2024 28348-CIDKBKC NAIL, 6 OR MORE 03/08/2025 90259-QYOO SKIN LESIONS, OVER 4 03/08/20 25 20979-KZPQ SKIN LESIONS, OVER 4 10/12/19 22515-YPHP SKIN LESIONS, OVER 4 06/15/19 41276-OZUN SKIN LESIONS, 2 TO 4 07/08/19 24 Next Appt Details Provider Name:Katelynn Miller janina, 07/11/2025 11:00:00 AM, [address] [place], [address], Insurance Providers Payer Name Payer Address Payer Phone Subscriber Number Group Number Insured Name Patient Relationship to Insured Coverage Start Date Coverage End Date Medicare National Govt [facility] [address] [place] [address] [id number] Davion Frank Self - patient is the insured [employer] [address] [place] [address] [id number] Davion Frank Self - patient is the insured Medical (General) History Medical History History ICD Code Back,Hip,and Knee pain CAD (Cholesterol) High blood pressure Numbness Measles Chicken pox Gout Surgical History Surgery Date(Month/Year)
--- OUTSIDE RECORDS SUMMARY | 2025-03-09 15:58 | XMS_ITS | Clinical Summary ---
Author Organization [facility] Facility Address [address] [address] Care Team Providers Care Ssn/Ssbn Weapons Equipment Operator Name Role Phone Unavailable Primary Care [...] BY MOUTH ONCE DAILY 60 tablet 5 09/06/2024 Active Active Problems Problem Noted Date Diagnosed Date Chronic kidney disease stage 2 10/28/2020 Essential hypertension 10/28/2020 Hypertensive renal disease 10/28/2020 Family History Medical History Relation Comments Heart [...] Colorectal Cancer Screening: Sigmoidoscopy 2001 Influenza Vaccine (#1) 2025 Hepatitis B Vaccine Aged Out No longe r eligible based on patient's age to complete this topic [place] [address] [place] [address] Medicare [facility] Medicare
--- OUTSIDE RECORDS SUMMARY | 2025-03-09 15:58 | XMS_ITS | Encounter Summary ---
Author Organization [facility] Address [address] [place] [address] Phone Care Team Providers Care Cooking Chef Name Role Phone Unavailable Primary Care Provider Unavailabl e Reason for Visit * Reason Comments Med Refill Encounter Details Date Type Department Care Team (Late st Contact Info) Description 09/23/2020 Refill [facility] [address] [place] [address] Avila Ceja MD [address] [facility] [address] [place] [address] Social History Tobacco Use Types [...]
--- OUTSIDE RECORDS SUMMARY | 2025-03-09 15:58 | XMS_ITS | Encounter Summary ---
Author Organization [facility] Address [address] [place] [address] Phone Care Team Providers Care Greens Keeper Name Role Phone Unavailable Primary Care Provider Unavailabl e Reason for Visit * Reason Comments Med Refill Encounter Details Date Type Department Care Team (Late st Contact Info) Description 01/30/2021 Refill [facility] [address] [place] [address] Avila Ceja MD [address] [facility] [address] [place] [address] Social History Tobacco Use Types [...]
--- OUTSIDE RECORDS SUMMARY | 2025-03-09 15:58 | XMS_ITS | Encounter Summary ---
Author Organization [facility] Address [address] [facility] [address] [place] [address] Phone Care Team Providers Care Communications Tower Technician Name Role Phone Unavailable Primary Care Provider Unavailabl e Reason for Visit * Reason Comments Med Refill Encounter Details Date Type Department Care Team (Late st Contact Info) Description 08/17/2024 Refill [facility] [address] [place] [address] Nino Gan MD [address] [facility] [address] [place] [address] Social History Tobacco Use Types [...]
--- OUTSIDE RECORDS SUMMARY | 2025-03-09 15:58 | XMS_ITS | Encounter Summary ---
Author Organization [facility] Address [address] [place] [address] Phone Care Team Providers Care Fabric Machine Operator Name Role Phone Unavailable Primary Care Provider Unavailabl e Reason for Visit * Reason Comments Med Refill Encounter Details Date Type Department Care Team (Late st Contact Info) Description 04/28/2021 Refill [facility] [address] [place] [address] Avila Ceja MD [address] [facility] [address] [place] [address] Social History Tobacco Use Types [...]
--- OUTSIDE RECORDS SUMMARY | 2025-03-09 15:58 | XMS_ITS | Encounter Summary ---
Author Organization [facility] Address [address] [place] [address] Phone Care Team Providers Care Oracle Programmer Analyst Name Role Phone Unavailable Primary Care Provider Unavailabl e Reason for Visit * Reason Comments Med Refill Encounter Details Date Type Department Care Team (Late st Contact Info) Description 09/01/2020 Refill [facility] [address] [place] [address] Avila Ceja MD [address] [facility] [address] [place] [address] Social History Tobacco Use Types [...]
--- OUTSIDE RECORDS SUMMARY | 2025-03-09 15:58 | XMS_ITS | Encounter Summary ---
Author Organization [facility] Address [address] [place] [address] Phone Care Team Providers Care Service Secretary Name Role Phone Unavailable Primary Care Provider Unavailabl e Reason for Visit * Reason Comments Med Refill Encounter Details Date Type Department Care Team (Late st Contact Info) Description 02/26/2021 Refill [facility] [address] [place] [address] Avila Ceja MD [address] [facility] [address] [place] [address] Social History Tobacco Use Types [...]
== END 2025-03-09 13:57 | disposition home or self-care (01) ==
LOC: HO.HMGCX 13:56
PROVIDERS: PCP Internal Medicine; Visit Provider Urology
DX: N32.0 Bladder-neck obstruction (principal)
CPT/HCPCS: 76775

== ENCOUNTER → 2025-03-09 13:58 | Outpatient (BNV) | payer MEDICARE, SELFPAY | PROVIDERS: PCP Internal Medicine; Visit Provider Radiology Diagnostic Radiology | DX: N28.1 Cyst of kidney, acquired (principal) | CPT/HCPCS: 76775 ==

== ENCOUNTER 2025-03-21 09:16 | Outpatient (AMB) | payer MEDICARE, SELFPAY ==
--- OUTSIDE RECORDS SUMMARY | 2024-04-20 04:30 | XMS_ITS ---
Author Organization [facility] Address [address] [place] [phone] Care Team Providers Care Consumer Affairs Manager Name Role Phone Isaura SMALLS, Colette Primary Care Provider Unavail Katelynn Kasper [phone] Encounters Encounter Location Date Provider Diagnosis [address] [address] 04/20/2024 Katelynn Cortés Plan Of Treatment Next Appt Details Provider Name:Katelynn roa, 07/11/2025 11:00:00 AM, [address] [place] [address], [phone], Progress Notes * Davion FRANK WDOB: [birth year] (74 yo M)Acc No.[id number]:04/20/2024 Progress Note Patient: Allie DAN Davion Salamanca Provider: Sanna Cortés DPM :1950 A ge:73 Y S ex:Male Date:04/20/2024 Address:[address] [place] [phone] Pcp:Colette Delarosa MD Subjective: * Chief Complaints: * * Medical History: Objective: * Vitals: Assessment: Plan: * Treatment: * Images: * The named appointment provid er may or may not be the originator of this progress note, and it is not deemed complete until electronically signed by the appointment provider. Sign off status: Pending * Provider: Sanna Cortés DPM Date: 06/21/2023 Generated for Joaquín mcduffie/Neo/Darius on: 05/21/2024 10:08 AM EST
--- OUTSIDE RECORDS SUMMARY | 2025-02-14 05:00 | XMS_ITS ---
Author Organization [facility] Address [address] [place] [address] Care Team Providers Care Director Property Name Role Phone Isaura SMALLS, Colette Primary Care Provider Unavail Katelynn Kasper Unavailable [phone] Kaur Encounters Encounter Location Date Provider Diagnosis [address] [address] 02/14/2025 Katelynn Cortés Plan Of Treatment Next Appt Details Provider Name:Katelynn roa, 07/11/2025 11:00:00 AM, [address] [place] [address], [phone], Progress Notes * Davion FRANK WDOB: [birth year] (74 yo M)Acc No.[id number]:02/14/2025 Progress Note Patient: Allie DAN Davion Salamanca Provider: Sanna Cortés DPM :1950 A ge:74 Y S ex:Male Date:02/14/2025 Address:[address] [place] [phone] Pcp:Colette Delarosa MD Subjective: * Chief Complaints: * [address] Kaur. * Medical History: Objective: * Vitals: Assessment: Plan: * Treatment: * Images: * The named appointment provid er may or may not be the originator of this progress note, and it is not deemed complete until electronically signed by the appointment provider. Sign off status: Pending * Provider: Sanna Cortés DPM Date: Generated for Joaquín mcduffie/Neo/Darius on: 05/21/2024 10:06 AM EST
--- OUTSIDE RECORDS SUMMARY | 2025-03-07 06:15 | XMS_ITS ---
Author Organization [facility] Address [address] [place] [address] Care Team Providers Care On Air Announcer Name Role Phone Isaura SMALLS, Colette Primary Care Provider Unavail Katelynn Kasper [phone] Encounters Encounter Location Date Provider Diagnosis [address] [address] 03/07/2025 Katelynn Cortés Plan Of Treatment Next Appt Details Provider Name:Katelynn roa, 07/11/2025 11:00:00 AM, [address] [place] [address], [phone], Progress Notes * Davion FRANK WDOB: [birth year] (74 yo M)Acc No.[id number]:03/07/2025 Progress Note Patient: Allie DAN Davion Salamanca Provider: Sanna Cortés DPM :1950 A ge:74 Y S ex:Male Date:03/07/2025 Address:[address] [place] [phone] Pcp:Colette Delarosa MD Subjective: * Chief Complaints: [...] Date: 1 Generated for Joaquín mcduffie/Neo/Darius on: 05/21/2024 10:06 AM EST
--- NOTE | 2025-03-21 09:36 | MHC.OFFVIS ---
Intake Visit Reasons: US Intake Note: Patient is present for Ultrasound Results/PVR Urology Med: Tamsulosin, Allopurinol Antibiotic Allergy: None Blood Thinner: Aspirin PVR: 71ml Shape Brick Molder Required: No Accompanied by: Self / Same As Patient Allergies No Known Allergies (No Known Allergies*) Allergy (Verified 03/21/25 09:36) HPI Comments Details: Dmitry is a pleasant male. He is a patient of Dr. Morales. He seen for the following urologic conditions - nephrolithiasis - lower urinary tract symptoms Yearly follow-up Has been on alpha-francine Stable PSA Ultrasound shows stable cysts left side no stones Last stone was 5 years ago Reporting significant weakening of stream Averaging 12 in Prolonged void time Plan bladder ultrasound Office cystoscopy with uroflow Double up Flomax Lower urinary tract symptoms Progressive Nocturia x3 Weakening of stream Worsening urgency Current medications tamsulosin PSA 03/09 2.4 Nephrolithiasis They are here for - further evaluation for nephrolithiasis, Urolithiasis was diagnosed - March 2020 The patient previously had kidney stones whose composition w - unknown Laboratory investigations include - June 2019 creatinine 1.0 24 Hour urine evaluation - none on file Prior treatment(s) include - observation- medical passage - a CT - stone protocol 04/05 - 4 mm distal right ureteric stone with mild hydroureteronephrosis and stranding - renal ultrasound 05/05 resolution of hydronephrosis, bilateral cysts approximately 1.5 cm - 12/04 renal ultrasound no evidence of stones, bilateral renal cyst stable - 12/05 renal ultrasound, no stones, bilateral cysts, left cyst 2.8 cm 2F - 12/06 renal ultrasound bilateral stable cysts Current therapeutic plan will be - to continue with imaging surveillance - encourage oral intake with lemon water therapy PFSH Medical History Atherosclerotic cardiovascular disease Prolonged QT interval Mixed hyperlipidemia History of colonic polyps Nephrolithiasis Flank pain Hypertension Surgical History Hx of colonoscopy Family History Father No problems noted. 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 Current occupational exposures/hazards: No Cognitive needs: No Hearing needs: No Vision needs: Yes (reading glasses) Review of Systems Const Denies chills and Denies fever(s) Card Reports no additional complaints and Denies syncope Resp Denies cough GI Denies abdominal pain and Denies heartburn Reports as per HPI and Denies change in libido Neuro Denies syncope Psych Denies change in libido Endo Denies change in libido Physical Exam Const General: cooperative, healthy appearing, comfortable and no acute distress Orientation/consciousness: patient oriented x3 HEENT Face and sinus: Yes normal facial exam Mouth: moist mucous membranes Neck Neck: Yes normal visual inspection, Yes full ROM and Yes trachea midline Chest Chest palpation & inspection: normal inspection of the chest Resp Effort & Inspection: normal respiratory effort, able to speak in complete sentences and no respiratory distress GI Inspection: Yes normal to inspection Back/Spine/Pelvis Cervical Spine: normal cervical lordosis Thoracic/Lumbar Spine: thoracic and lumbar spine normal to inspection Skin General skin exam: no rashes or lesions noted Neuro General: patient oriented x3, gait normal, tone normal and moves all extremities Extrem General: Yes normal to inspection and Yes capillary refill normal Office Procedures Post Void Residual Post Residual Void Post Void Residual (PVR): 71 42514-Amsa Void Residual by ultrasound Assessment & Plan Assessment & Plan (1) Bladder outlet obstruction: Code(s): N32.0 - Bladder-neck obstruction Category: Medical (2) Nephrolithiasis: Code(s): N20.0 - Calculus of kidney Category: Medical Plan Progressive bladder outlet symptoms Increase tamsulosin Plan bladder ultrasound and office cystoscopy Orders: Orders AMB Post Void Residual by ultrasound Today R35.1 - Nocturia US bladder Today N32.0 - Bladder-neck obstruction Medications: Changed From tamsulosin 0.4 mg PO BEDTIME 90 days 90 caps 3RF N32.0 - Bladder-neck obstruction, R35.1 - Nocturia To tamsulosin 0.8 mg (2 x 0.4 mg) PO BEDTIME 180 caps 0RF 90 days N32.0 - Bladder-neck obstruction, R35.1 - Nocturia Patient Instructions: This note is constructed using voice recognition software. While every effort has been made to ensure accuracy dial equipment engineer errors may have been included. Imaging studies, laboratory and physical exam results were discussed and reviewed in detail. No major barriers to patient understanding were identified. An opportunity to ask questions regarding the treatment plan was provided. All questions were answered. The patient expressed understanding and agreement with the above treatment plan. The patient is aware they should contact our office by phone for worsening of their current condition or the appearance of new urologic symptoms. Compliance is encouraged with any medications and followup testing that is ordered. It is a privilege to participate in the urologic care of your patient. If you have any questions or concerns regarding treatment for the above conditions, or other urologic issues, please do not hesitate to contact me. The office telephone contact is [phone]. Sincerely, Dr Navin Campos MD, [facility] - Urology Compassionate Specialist Care for the Genitourinary System Coding Level of Care Code Est Pt Level 4 (35747) Complex EM visit Add On G2211 Diagnoses Bladder outlet obstruction N32.0 Nephrolithiasis N20.0 CPT Codes Post Residual Void - PVR CPT Code: 34897-Jdgi Void Residual by ultrasound ([id number])
--- OUTSIDE RECORDS SUMMARY | 2025-03-21 10:08 | XMS_ITS | Patient Health Record ---
[facility] Address [address] [place] [address] Care Team Providers Care Wind Turbine Erector Name Role Phone Isaura SMALLS, Colette Primary Care Provider Unavail able Princess Cortésine Unavailable [phone] Allergies No Known Allergies Reason For Referral [...] Problem Status W/U Status Risk Notes Problem Information temporarily unavailable Atherosclerosis of [place] artery of both lower extremities, with unspecified presence of clinical manifestation (I70.203) Active confirmed Q7(A), Q8(2B), Q9(1B,2C ) Vital Signs Blood pressure diastolic 65 mm Hg 03/08/2025 Height 1lz11to in 03/08/2025 Blood pressure systolic 130 mm Hg 03/08/2025 Weight 200 lbs 03/08/2025 BMI 27.89 kg/m2 03/08/2025 Procedures Procedure Date Ordered Date Performed Result Body Sit e 44101-GHVSWXA NAIL, 6 OR MORE 06/15/2024 N/A 73439-DDPR SKIN LESIONS, OVER 4 06/15/2024 N/A 92787-CWCGUFB NAIL, 6 OR MORE 10/11/2024 N/A 40339-BFJE SKIN LESIONS, OVER 4 10/11/2024 N/A 07919-MVOYGVD NAIL, 6 OR MORE 03/08/2025 N/A 91488-CSVS SKIN LESIONS, OVER 4 03/08/2025 N/A Encounters Encounter Location Date Provider Diagnosis [address] [address] 06/15/2024 Katelynn Cortés Atherosclerosis of [place] artery of both lower extremities, with unspecified presence of clinical manifestation I70.203 ; Tinea unguium B35.1 ; Pain in right toe(s) M79.674 and Pain in left toe(s) M79.[address] [facility] [address] 10/11/2024 Katelynn Cortés Atherosclerosis of [place] artery of both lower extremities, with unspecified presence of clinical manifestation I70.203 ; Tinea unguium B35.1 ; Pain in right toe(s) M79.674 and Pain in left toe(s) M79.[address] [address] 03/08/2025 Katelynn Cortés Atherosclerosis of [place] artery of both lower extremities, with unspecified presence of clinical manifestation I70.203 ; Tinea unguium B35.1 ; Pain in right toe(s) M79.674 and Pain in left toe(s) M79.[address] [facility] [address] [address] 04/19/2024 Katelynn Cortés Assessments Encounter Date Diagnosis (ICD Code) Assessment Notes Treatment Notes Treatment Clinical Notes Section Notes 06/15/2024 Atherosclerosis of [place] artery of both lower extremities, with unspecified presence of clinical manifestation (ICD-10 - I70.203) Q7(A), Q8(2B), Q9(1B,2C) 10/11/2024 Atherosclerosis of [place] artery of both lower extremities, with unspecified presence of clinical manifestation (ICD-10 - I70.203) Q7(A), Q8(2B), Q9(1B,2C) 03/08/2025 Atherosclerosis of [place] artery of both lower extremities, with unspecified [...] X ray : Foot, left 3V 04/01/2023 65344-GULLYFY NAIL, 6 OR MORE 06/15/2024 29067-AIMWBQB NAIL, 6 OR MORE 10/11/2024 25347-JKHHINL NAIL, 6 OR MORE 03/08/2025 11422-QOUI SKIN LESIONS, OVER 4 03/08/20 09038-YRRZ SKIN LESIONS, OVER 4 10/12/19 15959-LUMC SKIN LESIONS, OVER 4 06/15/19 16024-PQIA SKIN LESIONS, 2 TO 4 07/08/19 24 Next Appt Details Provider Name:Katelynn roa, 07/11/2025 11:00:00 AM, [address] [place], [address], Insurance Providers Payer Name Payer Address Payer Phone Subscriber Number Group Number Insured Name Patient Relationship to Insured Coverage Start Date Coverage End Date Medicare National [facility] [address] [place] [address] [id number] Davion Frank Self - patient is the insured [employer] [address] [place] [address] [phone] [id number] Davion Frank Self - patient is the insured Medical (General) History Medical History History ICD Code Back,Hip,and Knee pain CAD (Cholesterol) High blood pressure Numbness Measles Chicken pox Gout Surgical History Surgery Date(Month/Year)
== END 2025-03-21 10:17 | disposition home or self-care (01) ==
LOC: HO.HUSH 09:17
PROVIDERS: PCP Internal Medicine; Visit Provider Urology
DX: N32.0 Bladder-neck obstruction (principal); N20.0 Calculus of kidney
CPT/HCPCS: 99214

== ENCOUNTER → 2025-03-21 09:16 | Outpatient (BNVA) | payer MEDICARE, SELFPAY | PROVIDERS: PCP Internal Medicine; Visit Provider Urology | DX: N32.0 Bladder-neck obstruction (principal); N20.0 Calculus of kidney | CPT/HCPCS: 51798; 99212 ==

== ENCOUNTER 2025-05-14 13:41 | Outpatient (REF) | payer MEDICARE, SELFPAY ==
--- OUTSIDE RECORDS SUMMARY | 2024-04-20 04:30 | XMS_ITS ---
Author Organization [facility] Address [address] [place] [phone] Care Team Providers Care Music Grapher Name Role Phone Isaura SMALLS, Coletet Primary Care Provider Unavail Katelynn Kasper [phone] Encounters Encounter Location Date Provider Diagnosis [address] [address] 04/20/2024 Katelynn Cortés Plan Of Treatment Next Appt Details Provider Name:Katelynn roa, 07/11/2025 11:00:00 AM, [address] [place] [address], [phone], Progress Notes * Davion FRANK WDOB: [birth year] (74 yo M)Acc No.[id number]:04/20/2024 Progress Note Patient: Allie DAN Davion Salamanca Provider: Sanna Cortés DPM :1950 A ge:73 Y S ex:Male Date:04/20/2024 Address:[address] [place] [phone] Pcp:Colette Delarosa MD Subjective: * Chief Complaints: * * Medical History: Objective: * Vitals: Assessment: Plan: * Treatment: * Images: * The named appointment provid er may or may not be the originator of this progress note, and it is not deemed complete until electronically signed by the appointment provider. Sign off status: Pending * Provider: Sanna Cortés DPM Date: 1 06/21/2023 Generated for Joaquín mcduffie/Neo/Darius on: 03:53 PM EST
--- OUTSIDE RECORDS SUMMARY | 2025-02-14 05:00 | XMS_ITS ---
Author Organization [facility] Address [address] [place] [address] Care Team Providers Care Rn L And D Name Role Phone Isaura SMALLS, Colette Primary Care Provider Unavail Katelynn Kasper Unavailable [phone] Kaur Encounters Encounter Location Date Provider Diagnosis [address] [address] 02/14/2025 Katelynn Crotés Plan Of Treatment Next Appt Details Provider Name:Katelynn roa, 07/11/2025 11:00:00 AM, [address] [place] [address], [phone], Progress Notes * Davion FRANK WDOB: [birth year] (74 yo M)Acc No.[id number]:02/14/2025 Progress Note Patient: Allie DAN Davion Salamanca Provider: Sanna Cortés DPM :1950 A ge:74 Y S ex:Male Date:02/14/2025 Address:[address] [place] [phone] Pcp:Colette Delarosa MD Subjective: * Chief Complaints: [...] * Provider: Sanna Cortés DPM Date: 1 Generated for Joaquín mcduffie/Neo/Darius on: 03:53 PM EST
--- OUTSIDE RECORDS SUMMARY | 2025-03-07 06:15 | XMS_ITS ---
Author Organization [facility] Address [address] [place] [address] Care Team Providers Care Care Transport Nurse Name Role Phone Isaura SMALLS, Colette Primary Care Provider Unavail Katelynn Kasper [phone] Encounters Encounter Location Date Provider Diagnosis [address] [address] 03/07/2025 Katelynn Cortés Plan Of Treatment Next Appt Details Provider Name:Katelynn roa, 07/11/2025 11:00:00 AM, [address] [place] [address], [phone], Progress Notes * Davion FRANK WDOB: [birth year] (74 yo M)Acc No.[id number]:03/07/2025 Progress Note Patient: Allie DAN Davion Salamanca Provider: Sanna Cortés DPM :1950 A ge:74 Y S ex:Male Date:03/07/2025 Address:[address] [place] [phone] Pcp:Colette Delarosa MD Subjective: * Chief Complaints: [...] Date: 1 Generated for Joaquín mcduffie/Neo/Darius on: 1 03:53 PM EST
--- NOTE | ~2025-05-14 | US_ITS ---
EXAMINATION: US BLADDER HISTORY: N32.0 - Bladder-neck obstruction COMPARISON: There are no prior studies available for comparison. FINDINGS: Sonographic examination of the urinary bladder was performed before and after voiding. Before voiding, the urinary bladder measured 9.6 x 6.8 x 8.0, for an estimated volume of 272 mL. After voiding, the urinary bladder measured 8.3 x 6.0 x 7.1, for an estimated volume of 186 mL. No intrinsic bladder abnormality is identified. Bilateral ureteral jets are identified. The prostate measures 4.6 x 4.5 x 4.3 cm, for an estimated volume of 46.6 mL. US/US bladder IMPRESSION: 1. Unremarkable ultrasound the urinary bladder. 2. Post void bladder residual of 186 mL. 3. Prostate volume of 46.6 mL. Electronically signed by: Fam Wilson MD 05/14/2025 03:28 PM [facility]
--- OUTSIDE RECORDS SUMMARY | 2025-05-14 15:53 | XMS_ITS | Clinical Summary ---
Author Organization [facility] Address [address] [address] Care Team Providers Care Drive Thru Order Taker Name Role Phone Unavailable Primary Care Provider [...] patient's age to complete this topic [place] [address] [place] [address] Medicare [facility] Medicare
--- OUTSIDE RECORDS SUMMARY | 2025-05-14 15:53 | XMS_ITS | Patient Health Record ---
[facility] Address [address] [place] [address] Care Team Providers Care Ict Analyst Name Role Phone Isaura SMALLS, Colette Primary Care Provider Unavail able Princess Cortésine Unavailable [phone] Allergies No Known Allergies Reason For Referral [...] atherosclerosis of arteries of lower limbs (disorder) ([id number] ) Atherosclerosis of eagle artery of both lower extremities, with unspecified presence of clinical manifestation (I70.203) Active confirmed Q7(A), Q8(2B), Q9(1B,2 C) Vital Signs Blood pressure diastolic 65 mm Hg 03/08/2025 Height 8kc70va in 03/08/2025 Blood pressure systolic 130 mm Hg 03/08/2025 Weight 200 lbs 03/08/2025 BMI 27.89 kg/m2 03/08/2025 Procedures Procedure Date Ordered Date Performed Result Body Sit e 93071-JPRNIFQ NAIL, 6 OR MORE 06/15/2024 N/A 25370-HYMR SKIN LESIONS, OVER 4 06/15/2024 N/A 92742-BBLHZJD NAIL, 6 OR MORE 10/11/2024 N/A 45853-GUNE SKIN LESIONS, OVER 4 10/11/2024 N/A 29299-WPMTNDK NAIL, 6 OR MORE 03/08/2025 N/A 87971-EVIE SKIN LESIONS, OVER 4 03/08/2025 N/A Encounters Encounter Location Date Provider Diagnosis [address] [address] 06/15/2024 Katelynn Cortés Atherosclerosis of eagle artery of both lower extremities, with unspecified presence of clinical manifestation I70.203 ; Tinea unguium B35.1 ; Pain in right toe(s) M79.674 and Pain in left toe(s) M79.[address] [address] 10/11/2024 Katelynn Cortés Atherosclerosis of eagle artery of both lower extremities, with unspecified presence of clinical manifestation I70.203 ; Tinea unguium B35.1 ; Pain in right toe(s) M79.674 and Pain in left toe(s) M79.[address] [address] 03/08/2025 Katelynn Cortés Atherosclerosis of eagle artery of both lower extremities, with unspecified presence of clinical manifestation I70.203 ; Tinea unguium B35.1 ; Pain in right toe(s) M79.674 and Pain in left toe(s) M79.675 Assessments Encounter Date Diagnosis (ICD Code) Assessment Notes Treatment Notes Treatment Clinical Notes Section Notes 06/15/2024 Atherosclerosis of eagle artery of both lower extremities, with unspecified presence of clinical manifestation (ICD-10 - I70.203) Q7(A), Q8(2B), Q9(1B,2C) 10/11/2024 Atherosclerosis of eagle artery of both lower extremities, with unspecified presence of clinical manifestation (ICD-10 - I70.203) Q7(A), Q8(2B), Q9(1B,2C) 03/08/2025 Atherosclerosis of eagle artery of both lower extremities, with unspecified [...] X ray : Foot, left 3V 04/01/2023 07890-IGJEAGW NAIL, 6 OR MORE 06/15/2024 48366-JEMUWKW NAIL, 6 OR MORE 10/11/2024 35034-PEQILGS NAIL, 6 OR MORE 03/08/2025 09241-BOMY SKIN LESIONS, OVER 4 03/08/20 25 87756-IEOL SKIN LESIONS, OVER 4 10/12/19 25 63862-ZYBI SKIN LESIONS, OVER 4 06/15/19 25 27599-MBJU SKIN LESIONS, 2 TO 4 07/08/19 24 Next Appt Details Provider Name:Katelynn roa, 07/11/2025 11:00:00 AM, [address] [place], [address], Insurance Providers Payer Name Payer Address Payer Phone Subscriber Number Group Number Insured Name Patient Relationship to Insured Coverage Start Date Coverage End Date Medicare National [facility] [address] [place] [address] [id number] Davion Frank Self - patient is the insured [employer] [address] [place] [address] [id number] Davion Frank Self - patient is the insured Medical (General) History Medical History History ICD Code Back,Hip,and Knee pain CAD (Cholesterol) High blood pressure Numbness Measles Chicken pox Gout Surgical History Surgery Date(Month/Year)
--- OUTSIDE RECORDS SUMMARY | 2025-05-14 15:53 | XMS_ITS | Encounter Summary ---
Author Organization [facility] Address [address] [place] [address] Phone Care Team Providers Care Paper Inspector Name Role Phone Unavailable Primary Care Provider Unavailabl e Reason for Visit * Reason Comments Med Refill Encounter Details Date Type Department Care Team (Late st Contact Info) Description 04/28/2021 Refill [facility] [address] [place] [address] Avila Ceja MD [address] [facility] [address] [place] [address] Social History Tobacco Use Types [...]
--- OUTSIDE RECORDS SUMMARY | 2025-05-14 15:53 | XMS_ITS | Encounter Summary ---
Author Organization [facility] Address [address] [place] [address] Phone Care Team Providers Care Migratory Farm Hand Name Role Phone Unavailable Primary Care Provider Unavailabl e Reason for Visit * Reason Comments Med Refill Encounter Details Date Type Department Care Team (Late st Contact Info) Description 02/26/2021 Refill [facility] [address] [place] [address] Avila Ceja MD [address] [facility] [address] [place] [address] Social History Tobacco Use Types [...]
--- OUTSIDE RECORDS SUMMARY | 2025-05-14 15:53 | XMS_ITS | Encounter Summary ---
Author Organization [facility] Address [address] [place] [address] Phone Care Team Providers Care Call Center Recruiter Name Role Phone Unavailable Primary Care Provider Unavailabl e Reason for Visit * Reason Comments Med Refill Encounter Details Date Type Department Care Team (Late st Contact Info) Description 09/23/2020 Refill [facility] [address] [place] [address] Avila Ceja MD [address] [facility] [address] [place] [address] Social History Tobacco Use Types [...]
--- OUTSIDE RECORDS SUMMARY | 2025-05-14 15:53 | XMS_ITS | Encounter Summary ---
Author Organization [facility] Address [address] [place] [address] Phone Care Team Providers Care Block Hacker Name Role Phone Unavailable Primary Care Provider Unavailabl e Reason for Visit * Reason Comments Med Refill Encounter Details Date Type Department Care Team (Late st Contact Info) Description 01/30/2021 Refill [facility] [address] [place] [address] Avila Ceja MD [address] [facility] [address] [place] [address] Social History Tobacco Use Types [...]
--- OUTSIDE RECORDS SUMMARY | 2025-05-14 15:53 | XMS_ITS | Encounter Summary ---
Author Organization [facility] Address [address] [facility] [address] [place] [address] Phone Care Team Providers Care Shared Services Manager Name Role Phone Unavailable Primary Care Provider Unavailabl e Reason for Visit * Reason Comments Med Refill Encounter Details Date Type Department Care Team (Late st Contact Info) Description 08/17/2024 Refill [facility] [address] [place] [address] Nino Gan MD [address] [facility] [address] [place] [address] Social History Tobacco Use Types [...]
--- OUTSIDE RECORDS SUMMARY | 2025-05-14 15:53 | XMS_ITS | Encounter Summary ---
Author Organization [facility] Address [address] [place] [address] Phone Care Team Providers Care Checker And Packer Name Role Phone Unavailable Primary Care Provider Unavailabl e Reason for Visit * Reason Comments Med Refill Encounter Details Date Type Department Care Team (Late st Contact Info) Description 09/01/2020 Refill [facility] [address] [place] [address] Avila Ceja MD [address] [facility] [address] [place] [address] Social History Tobacco Use Types [...]
[2025-05-14 18:16] LABS: Prostate Specific Antigen 2.23 ng/mL (<0.05-4.0)
== END 2025-05-14 13:42 ==
LOC: HO.HMGCX 13:41
PROVIDERS: PCP Internal Medicine; Visit Provider Urology
DX: N32.0 Bladder-neck obstruction (principal); Z12.5 Encounter for screening for malignant neoplasm of prostate
CPT/HCPCS: 36415; 76857; 84153

== ENCOUNTER → 2025-05-14 14:11 | Outpatient (BNV) | payer MEDICARE, SELFPAY | PROVIDERS: PCP Internal Medicine; Visit Provider Radiology Diagnostic Radiology | DX: N32.0 Bladder-neck obstruction (principal) | CPT/HCPCS: 76857 ==